=== PATIENT | female | born 1945 | race Caucasian/White ===

== ENCOUNTER → 2019-11-06 16:13 | Outpatient (CLI) | payer MEDICARE, OTHER, SELFPAY ==
[2019-11-06 15:57] VITALS: BMI 21.4
--- NOTE | 2019-11-06 16:18 | RAD_ITS ---
STUDY: X-RAY CHEST REASON FOR EXAM: Female, 74 years old. COUGH, SHORT OF BREATH TECHNIQUE: PA and lateral views of the chest. COMPARISON: None. FINDINGS: Cardiac silhouette unremarkable. Pulmonary vascularity unremarkable. Aorta unremarkable. No focal airspace opacities. No pleural effusions. Upper abdomen unremarkable. Osseous structures intact. No pneumothorax. RAD/Chest PA and Lateral IMPRESSION: No acute cardiopulmonary findings Electronically Signed: Woo Ramachandran, at 17:36 EST Tel , Service support ,
== END ==
PROVIDERS: PCP Family Medicine; Referring Provider Physician Assistant; Visit Provider Physician Assistant
DX: R05 Cough (principal)
CPT/HCPCS: 71046

== ENCOUNTER 2019-11-11 18:19 | Inpatient (IN) | payer MEDICARE, OTHER, SELFPAY ==
[2019-11-06 15:57] VITALS: BMI 21.4
[2019-11-11 18:21] VITALS: BP 146/81; PULSE 83; RESP 15; TEMP 37.1; O2SAT 94; BMI 22.3
--- NOTE | 2019-11-11 18:51 | EKG12_ITS ---
Test Reason : HTN Blood Pressure : / mmHG Vent. Rate : 081 BPM Atrial Rate : 081 BPM P-R Int : 150 ms QRS Dur : 090 ms QT Int : 378 ms P-R-T Axes : 052 053 069 degrees QTc Int : 439 ms Normal sinus rhythm Normal ECG Confirmed by FISH FORBES ([id number]), editorial project manager CHIDI RAY ([id number]) on 11/12/2019 3:00:39 PM Referred By: GRIFFIN Confirmed By:FISH FORBES
--- NOTE | 2019-11-11 19:06 | ED.RN ---
NO OLD EKGS IN MUSE
[2019-11-11] MEDS: 0.9% Normal Saline 1,000 ML 150 ML IV (19:19)
--- NOTE | 2019-11-11 19:25 | RAD_ITS ---
STUDY: X-RAY CHEST REASON FOR EXAM: Female, 74 years old. Hypertension TECHNIQUE: PA and lateral views of the chest. COMPARISON: 11/06/2019. FINDINGS: Cardiac silhouette unremarkable. Pulmonary vascularity unremarkable. Aorta unremarkable. No focal airspace opacities. No pleural effusions. Upper abdomen unremarkable. Osseous structures intact. No pneumothorax. RAD/Chest PA and Lateral IMPRESSION: No acute cardiopulmonary findings Electronically Signed: Woo Ramachandran, at 20:50 EST Tel , Service support ,
[2019-11-11 19:28] LABS: Absolute Lymphocyte Count 1.54 X10^3/uL (0.83-4.51); Absolute Neutrophil Count 9.4 X10^3/uL (2.0-7.7); Basophil# 0.09 X10^3/uL; Basophil% 0.7 % (0-1); Eosinophil# 0.57 X10^3/uL; Eosinophils% 4.5 % (0-5); Hematocrit 35.7 % (37-47); Hemoglobin 11.6 g/dL (12.0-15.0); Lymphocyte # 1.54 X10^3/ul (4.0); Lymphocyte % 12.3 % (19-41); Mean Corp Hgb Conc 32.5 g/dL (32-36); Mean Corpuscular Hgb 30.9 pg (27.0-32.0); Mean Corpuscular Volume 95.2 fL (81-99); Mean Platelet Vol. 9.5 fl (6.2-12.0); Monocyte# 0.84 X10^3/uL; Monocyte% 6.7 % (0-10); NRBC Flagged by Analyzer 0 % (0-5); Neutrophil # 9.43 X10^3/uL (2.7-7.7); Platelet Count 318 K/mm3 (150-450); RBC Distribution Width CV 13.8 % (11.6-14.6); RBC Distribution Width SD 47.1 fl (35.1-43.9); Red Blood Count 3.75 M/mm3 (4.2-5.4); White Blood Count 12.6 K/mm3 (4.4-11.0)
[2019-11-11 19:41] LABS: Anion Gap 8 (5-15); BUN 33 mg/dL (7-18); BUN/Creat Ratio 20.9 RATIO (10-20); Calcium,Total 9.2 mg/dL (8.5-10.1); Chloride 105 mmol/L (98-107); Creatinine, Serum 1.58 mg/dL (0.55-1.02); EST Glomerular Filtration Rate 34 mL/min (>60); Est Glom Filt Rate - Afr Amer 41 mL/min (>60); Estimated Creatinine Clearance 26.23 ml/min; Glucose 131 mg/dL (74-106); Potassium 3.7 mmol/L (3.5-5.1); Sodium Level 142 mmol/L (136-145)
--- NOTE | 2019-11-11 19:44 | ED.DCSUM_ITS ---
- ER Visit Summary Date of Service: 11/11/19 Chief Complaint: Cough History of Present Illness: The patient is a [address] Carmen. She reports that she went to urgent care 5 days ago and was diagnosed with pneumonia by chest x-ray. She was placed on Levaquin for 10 days. She now has been taking this for 5 days reports that she does not feel any better. She is been using an albuterol MDI without relief as well. Patient reports that today her blood pressures been elevated more than it usual ly is. Typically her blood pressure runs in the 140s. Tonight is been up to 171 systolic. Review of systems patient complains subjective fever chills. Mild shortness of breath is been wheezing. States her cough productive green sputum without blood. She denies any other complaints. She did get a flu shot this year. Physical Examination: Vitals: Stable. Afebrile. General: Well-nourished and well-developed. Head: Normocephalic atraumatic. Neck: Supple, no lymphadenopathy. No JVD. Nontender. Cardiovascular: Regular rate and rhythm. No murmurs. Respiratory: No respiratory distress. Clear to auscultation bilaterally. Abdominal: Soft, nontender, nondistended, normal bowel sounds. No guarding, rebound, or peritoneal signs. Back: Nontender. Extremities: Nontender, no edema. Skin: Normal color, no rash. Neurologic: Alert and oriented ?3. Cranial nerves II through XII are intact. Normal strength and sensation. Psych: Normal affect. Test Results: CBC shows a white count of 12.6 with an H&H of 11.6 35.7, segmented for 75, lymphocytes 12. Chem-7 shows a glucose 131, BUN of 33, creatinine 1.58. Influenza is negative. She does not have old labs for comparison. Chest x-ray is read as normal. Clinical Impression(s) from Imaging Studies Chest X-Ray 11/11/19 19:25 IMPRESSION: No acute cardiopulmonary findings Electronically Signed: Woo Ramachandran, at 20:50 EST Tel , Service support , Chest CTA 11/11/19 21:33 IMPRESSION: No visualized pulmonary embolism. Findings are highly suspicious for atypical pneumonia with areas of subtle groundglass opacity with interspersed Smudgy nodular densities scattered throughout the lungs with bilateral lung base multiple smudgy nodular densities. Recommend follow to clearing as pulmonary nodularity can be associated with metastatic disease. In this setting is thought to represent inflammatory change. Probable calcified granuloma in the left apex. There is a focal outpouching with a bubbly food-like appearance to the right of the distal esophagus suspicious for a diverticulum. Recommend consideration for a follow-up esophagram when appropriate. There is associated wall thickening of the esophagus suspicious for esophagitis. There is a well-circumscribed cyst within the liver in the right hepatic lobe with Hounsfield units in the range of simple fluid. Electronically Signed: Sobeida Pena MD at 22:19 EST Tel , Service support , Emergency Department Course and Treatment: The patient was ambulated in the emerge department and her pulse ox dropped to 82%. Because of this a CT of the chest to rule out PE was obtained. This shows diffuse atypical pneumonias. Patient was then written for a lactic acid and blood cultures. She was given Rocephin and Zithromax IV. On 2 L of oxygen her pulse ox is 99% and she is resting comfortably. Treatment Plan: The patient was discussed with . She will be admitted to the hospital for further evaluation and treatment. Disposition: Admitted in stable condition. Impression: 1. Pneumonia, atypical. 2. Hypoxia. This note was generated with [email or web address]ation software. It may contain incorrect words, spelling, and punctuation that were not noted in review of the chart prior to signing ED Disposition - Plan for ED Patient: Disposition: Acute Care Hospital [facility]
--- NOTE | 2019-11-11 20:45 | ED.RN ---
ATTEMPTED TO CALL RADIOLOGY FOR X-RAY RESULTS. NO ONE PICKED UP X 2.
[2019-11-11 21:01] VITALS: BP 129/74; PULSE 81; RESP 17; O2SAT 93
[2019-11-11] MEDS: predniSONE 20 MG Tablet 40 MG PO (21:28)
[2019-11-11 21:30] VITALS: O2SAT 84; O2SAT 94
[2019-11-11 21:31] VITALS: O2SAT 99
--- NOTE | 2019-11-11 21:33 | CT_ITS ---
STUDY: CTA CHEST REASON FOR EXAM: Female, 74 years old. DX WITH PNEUMONIA THIS WEEK, SHORT OF BREATH WITH EXERTION RADIATION DOSAGE (If Supplied By Facility): CTDIvol = ( 4.2 ) mGy, DLP = ( 183.60 ) mGycm TECHNIQUE: The examination was performed with the intravenous administration of IV 100mL Isovue-300. Post-processing of the angiographic images was performed, with multiplanar reformation and 3D reconstruction. Individualized dose optimization techniques were used for this CT. COMPARISON: November 11, 2019 chest x-ray FINDINGS: Normal enhancement of the main pulmonary artery and right and left pulmonary arteries. Normal enhancement of the bilateral peripheral pulmonary arteries. There is no demonstrated pulmonary embolism. There is a ductus diverticulum in the aorta. The aorta is tortuous. There is no demonstrated aortic dissection. The heart is within normal limits in size. Trace pericardial effusion. There is a outpouching of the right side of the distal esophagus with food or fluid that is suggestive of a diverticulum measuring 3.4 x 2.3 cm. Proximal and distal esophagus is mildly thickened. Normal hilar regions. Normal visualized trachea and bronchi. There is a small possible pulmonary varix or vascular distention in the right lower lobe. This may be associated with a small nodule and/or potentially vascular distention that measures 3.7 cm. Overall the lungs appear hyperinflated. There is a partially calcified nodule in the left apex measuring 4.3 mm. There are subtle areas of minimal groundglass opacity. There is mild peribronchial thickening. Within both lung bases there are patchy nodular inflammatory appearing densities. There is a nodular density in the right upper lobe measuring 7.3 mm. There is a right lung base nodule measuring 7.9 x 8.6 mm. Normal pulmonary parenchyma. Normal pleura. Normal chest wall structures. There is kyphosis. There is multilevel degenerative change. There is a low attenuating cystic structure in the right hepatic lobe measuring 3.0 x 1.9 cm with Hounsfield units in the range of simple fluid. There is minimal right pelviectasis partially visualized. CT/CTA Chest W/WO Contrast IMPRESSION: No visualized pulmonary embolism. Findings are highly suspicious for atypical pneumonia with areas of subtle groundglass opacity with interspersed Smudgy nodular densities scattered throughout the lungs with bilateral lung base multiple smudgy nodular densities. Recommend follow to clearing as pulmonary nodularity can be associated with metastatic disease. In this setting is thought to represent inflammatory change. Probable calcified granuloma in the left apex. There is a focal outpouching with a bubbly food-like appearance to the right of the distal esophagus suspicious for a diverticulum. Recommend consideration for a follow-up esophagram when appropriate. There is associated wall thickening of the esophagus suspicious for esophagitis. There is a well-circumscribed cyst within the liver in the right hepatic lobe with Hounsfield units in the range of simple fluid. Electronically Signed: Sobeida Pena MD at 22:19 EST Tel , Service support ,
[2019-11-11] MEDS: 0.9% Normal Saline 1,000 ML 999 ML IV (22:11)
--- NOTE | 2019-11-11 22:43 | HP.PCM_ITS ---
History of Present Illness Date of Admission: 11/11/19 Chief Complaint: shortness of breath The patient is a 74 year old F with past medical history as outlined who was admitted through the ED on 11/11/2019 with a complaint of shortness of breath. Patient had been seen at that in our clinic about a week prior to admission when she presented there with shortness of breath and was diagnosed with pneumonia. She was treated on outpatient basis with Levaquin which completed a 5-day course of. However shortness of breath persisted and worsened today with associated fever and chills and a cough which was productive of greenish sputum. She denied any nausea vomiting or chest pain palpitations or dizziness, orthopnea or PND. She therefore decided to come into the ED today. Vitals in the ED only significant for blood pressure of 160/85. She had a temperature of 98.9 Fahrenheit with pulse rate of 88 and respiratory rate of 16. On room air, she was saturating in the 80s and needed 2 L to go up to 99%. Chemistry showed creatinine of 1.58. Initial troponin was negative. CBC showed WBC of 12.6 with hemoglobin of 11.6. Checks x-ray showed no acute cardiopulmonary findings, but CT of the chest showed findings highly suspicious for atypical pneumonia with areas of subtle groundglass opacity with interspersed smudgy nodular densities scattered throughout the lungs with bilateral lung base multiple smudgy nodular densities. She has been admitted to be managed for acute hypoxic respiratory insufficiency due to community-acquired pneumonia for which she failed outpatient therapy. [] Past Medical History Medical History: Medical History (Last Updated 11/06/19 @ 16:04 by Kena Wong) Arthritis M19.90 Diabetes E11.9 History of kidney stones Z87.442 Hypertension I10 Allergies diltiazem [From Cardizem] Allergy (Mild, Verified 11/11/19 18:20) HIVES minoxidil Allergy (Mild, Verified 11/11/19 18:20) TACHYCARDIA prazosin [From Minipress] Adverse Reaction (Verified 11/11/19 18:41) Other PALPITATIONS Home Medications: Ambulatory Orders Medication Instructions Recorded albuterol sulfate 90 mcg/actuation 2 puff INHALATION 6XD PRN #8 g 11/06/19 aerosol inhaler allopurinol 300 mg tablet 300 mg PO DAILY 11/06/19 aspirin 81 mg chewable tablet 81 mg PO DAILY 11/06/19 atorvastatin 10 mg tablet 10 mg PO DAILY 11/06/19 clonidine HCl 0.2 mg tablet 0.2 mg PO BID tab 11/06/19 indapamide 2.5 mg tablet 2.5 mg PO DAILY 11/06/19 levofloxacin 500 mg tablet 500 mg PO DAILY #10 tab 11/06/19 metformin 500 mg tablet 500 mg PO BID 11/06/19 polyethylene glycol 3350 17 17 g PO DAILY 11/06/19 gram/dose oral powder valsartan 320 mg tablet 320 mg PO DAILY 11/06/19 Metoprolol Tartrate [Lopressor] 100 mg PO BID 11/11/19 Surgical History: no surgical history Psychiatric History: No pertinent psych hx CONTACT CENTER AGENT History: No pertinent CONTACT CENTER AGENT history Lives: Spouse/ Significant Other Smoking Status: Never smoker Alcohol: None Drugs: None - *Family History Maternal History Items: No pertinent history Review of Systems Constitutional: Reports: Chills, Fever, Night Sweats, Malaise, Weakness, Fatigue. Denies: Anorexia Eyes: Denies: Blurred vision HEENT: Denies: Head Aches, Sinus Congestion, Sinus Drainage Cardiovascular: Denies: Chest Pain, Chest Pressure, Heaviness, Light Headedness, Orthopnea, Palpitations, Paroxysmal Noc. Dyspnea Respiratory: Reports: Cough, Shortness of Breath, Shortness of breath at rest, Shortness of breath upon exertion, Sputum production. Denies: Wheezing Gastrointestinal: Denies: Abdominal Pain, Nausea, Vomiting Genitourinary: Denies: Dysuria Musculoskeletal: Denies: Joint Pain, Joint Tenderness Skin: Denies: Rash, Wounds Neurological: Denies: Numbness, Tingling, Focal weakness Psychiatric: Denies: Anxiety, Depression, Homicidal Ideations, Suicidal Ideations Hematologic/ Lymphatic: Denies: Easy Bruising, Easy Bleeding VTE Information - Inpt Only VTE Present on Admission: No VTE Pharm Prophylaxis ordered?: Yes - Physical Exam Vitals/I&O's: Vital Signs Temp Pulse Resp BP Pulse Ox 98.7 F 81 17 129/74 H 99 11/11/19 18:21 11/11/19 21:01 11/11/19 21:01 11/11/19 21:01 11/11/19 21:31 Oxygen Flow Rate (L/min) 2 Oxygen Delivery Method Nasal Cannula Weight: 126 lb 1.671 oz Body Mass Index (BMI) 22.3 Intake and Output for Last 24 Hours 11/09/19 11/10/19 11/11/19 23:59 23:59 23:59 Intake Total 340 / 340 Balance 340 / 340 General: Alert, Oriented x3, Cooperative, No apparent distress HEENT: Atraumatic, PERRLA, EOMI, Normocephalic Oral: Moist Mucosa Neck: Supple, No JVD, Negative Carotid Bruits Lungs: - - decreased breath sounds bibasally, with occasional coarse crackles bibasally. on 2L of oxygen. Cardiovascular: Regular rate, Regular Rhythm, Normal S1, Normal S2, No murmurs Abdomen: Bowel Sounds Present, Soft, Non Tender, Non-Distended, No Hepato- splenomegaly Extremities: No clubbing, No cyanosis, No edema, Capillary Refill Less than 3 Seconds Skin: No rashes, No breakdown Musculoskeletal: No Tenderness to Palpation of Joints or Extremities Lymphatic: No Cervical, Supraclavicular, or Inguinal Adenopathy Neurological: Cranial nerves II-XII grossly intact, Neuro grossly intact, Motor Exam 5/5 strength throughout Psych/Mental Status: Normal Affect, Appropriate, Alert and oriented to time, place, person, mood and affect Microbiology Past 72 Hours 11/11/19 19:20 Mucosa - Nasopharyngeal Influenza Types A,B Direct FA (PEDRO) - Final Laboratory Results 11/11/19 19:15: WBC 12.6 H, RBC 3.75 L, Hgb 11.6 L, Hct 35.7 L, MCV 95.2, MCH 30.9, MCHC 32.5, RDW Std Deviation 47.1 H, RDW Coeff of Shameka 13.8, Plt Count 318, MPV 9.5, Immature Gran % (Auto) 0.800, Neut % (Auto) 75.0 H, Lymph % (Auto) 12.3 L, [place] % (Auto) 6.7, Eos % (Auto) 4.5, Baso % (Auto) 0.7, Absolute Neuts (auto) 9.4 H, Absolute Lymphs (auto) 1.54, Nucleated RBC % 0 11/11/19 19:15: Sodium 142, Potassium 3.7, Chloride 105, Carbon Dioxide 29.0, Anion Gap 8, BUN 33 H, Creatinine 1.58 H, Estim Creat Clear Calc 26.23, Est GFR (MDRD) Af Amer 41 L, Est GFR (MDRD) Non-Af 34 L, BUN/Creatinine Ratio 20.9 H, Glucose 131 H, Calcium 9.2 11/11/19 19:15: Troponin I Pending Diagnostic Data Chest X-Ray 11/11/19 19:25 IMPRESSION: No acute cardiopulmonary findings Electronically Signed: Woo Ramachandran, at 20:50 EST Tel , Service support , Chest CTA 11/11/19 21:33 IMPRESSION: No visualized pulmonary embolism. Findings are highly suspicious for atypical pneumonia with areas of subtle groundglass opacity with interspersed Smudgy nodular densities scattered throughout the lungs with bilateral lung base multiple smudgy nodular densities. Recommend follow to clearing as pulmonary nodularity can be associated with metastatic disease. In this setting is thought to represent inflammatory change. Probable calcified granuloma in the left apex. There is a focal outpouching with a bubbly food-like appearance to the right of the distal esophagus suspicious for a diverticulum. Recommend consideration for a follow-up esophagram when appropriate. There is associated wall thickening of the esophagus suspicious for esophagitis. There is a well-circumscribed cyst within the liver in the right hepatic lobe with Hounsfield units in the range of simple fluid. Electronically Signed: Sobeida Pena MD at 22:19 EST Tel , Service support , Current Medications Sodium Chloride () 1,000 mls @ 150 mls/hr IV .[id number] ONE Stop: 11/12/19 01:29 Last Infusion: 11/11/19 21:35 Dose: 0 mls/hr Documented by: Azithromycin 500 mg/ Dextrose 255 mls @ 250 mls/hr IV X1 ONE Stop: 11/11/19 23:24 Ceftriaxone Sodium (Rocephin) 1 gm in 50 mls @ 100 mls/hr IV X1 ONE Stop: 11/11/19 22:52 Assessment/Plan All Active Problems (Last Updated 11/06/19 @ 16:04 by Kena Wong) Bronchitis (Acute) 74 y/o female admitted with a complaint of shortness of breath, fever, chills and cough 1. Acute hypoxic respiratory insufficiency due to community acquired pneumonia * Failed outpatient therapy. Was saturating in the 80s on room air and required 2 L of oxygen to go up to 99%. * Chest x-ray showed no acute cardiopulmonary process but CTA did show findings suspicious for atypical pneumonia with areas of subtle groundglass opacities with interspersed large nodular densities scattered throughout the lungs with bilateral lung base multiple small general densities. * Admit to PCU with telemetry * WBC is 12.6 and lactic acid was initially negative. * Was treated with 5 days of Levaquin unsuccessfully * Start IV ceftriaxone and IV azithromycin. * Check respiratory panel and urine for strep and Legionella. Check blood cultures as well as sputum cultures. * Titrate oxygen to maintain saturation above 90% * Breathing treatments with DuoNeb's. * 2. Community acquired pneumonia: * Failed outpatient therapy. * Management as under 1. * 3. SKYLA: * Cr is 1.58. baseline is not known. * will hydrate gently with IVF and trend Cr * 4. Type 2 diabetes mellitus: * Recently diagnosed in August 2019. * On metformin 500 mg twice daily. Will hold metformin o/a of Cr of 1.58 * Insulin sliding scale. Accu-Cheks AC at bedtime. 5. Hypertension: Fairly controlled for age. On clonidine, indapamide and metoprolol. Also on valsartan. IV hydralazine PRN. 6. History of gout: On allopurinol DVT prophylaxis: Lovenox Code Visit Inpatient E&M: [id number] Init Hosp L3
[2019-11-11 23:08] VITALS: BP 162/85; PULSE 88; RESP 16; O2SAT 99
[2019-11-11] MEDS: Ceftriaxone 1 GM/50 ML BAG IV (23:17)
[2019-11-11] MEDS: MethylPREDNISolone 125 MG/2 ML Vial IV (23:17)
[2019-11-11 23:25] VITALS: TEMP 37.2
[2019-11-11 23:59] LABS: Lactic Acid 1.1 mmol/L (0.4-1.9)
[2019-11-12] VITALS (17 sets, daily range): BP systolic 120–162; BP diastolic 66–79; PULSE 72–85; RESP 16–18; TEMP 36.6–36.7; O2SAT 90–99; BMI 22.3; BMI 22.6
[2019-11-12 00:41] LABS: Bedside Glucose 204 mg/dL (70-110)
[2019-11-12] MEDS: 0.9% Normal Saline 1,000 ML 150 ML IV ×2 (01:50→08:30)
[2019-11-12 03:17] LABS: Absolute Lymphocyte Count 0.89 X10^3/uL (0.83-4.51); Absolute Neutrophil Count 9.6 X10^3/uL (2.0-7.7); Basophil# 0.06 X10^3/uL; Basophil% 0.6 % (0-1); Eosinophil# 0.05 X10^3/uL; Eosinophils% 0.5 % (0-5); Hematocrit 32.3 % (37-47); Hemoglobin 10.5 g/dL (12.0-15.0); Lymphocyte # 0.89 X10^3/ul (4.0); Lymphocyte % 8.2 % (19-41); Mean Corp Hgb Conc 32.5 g/dL (32-36); Mean Corpuscular Hgb 30.7 pg (27.0-32.0); Mean Corpuscular Volume 94.4 fL (81-99); Mean Platelet Vol. 9.6 fl (6.2-12.0); Monocyte# 0.07 X10^3/uL; Monocyte% 0.6 % (0-10); NRBC Flagged by Analyzer 0 % (0-5); Neutrophil # 9.64 X10^3/uL (2.7-7.7); Neutrophil % 89.2 % (47-70); Platelet Count 280 K/mm3 (150-450); RBC Distribution Width CV 13.7 % (11.6-14.6); RBC Distribution Width SD 46.1 fl (35.1-43.9); Red Blood Count 3.42 M/mm3 (4.2-5.4); White Blood Count 10.8 K/mm3 (4.4-11.0)
[2019-11-12 03:57] LABS: Anion Gap 7 (5-15); BUN 29 mg/dL (7-18); BUN/Creat Ratio 22.3 RATIO (10-20); Calcium,Total 7.9 mg/dL (8.5-10.1); Chloride 106 mmol/L (98-107); EST Glomerular Filtration Rate 43 mL/min (>60); Est Glom Filt Rate - Afr Amer 52 mL/min (>60); Estimated Creatinine Clearance 31.88 ml/min; Glucose 198 mg/dL (74-106); Potassium 3.8 mmol/L (3.5-5.1); Sodium Level 140 mmol/L (136-145)
[2019-11-12 06:35] LABS: Bedside Glucose 175 mg/dL (70-110)
--- NOTE | 2019-11-12 07:46 | PCM.PN.HOSP ---
Reason for Visit: Patient does not have history of smoking, chronic lung disease or heart disease. She is admitted with shortness of breath and mild cough. She had 5 days of outpatient Levaquin for pneumonia but did not improve. Objective: Hemodynamically stable. No tachycardia or fever Vitals/I&O's: Vital Signs Temp Pulse Resp BP Pulse Ox 97.9 F 72 18 131/66 H 96 11/12/19 05:52 11/12/19 05:52 11/12/19 05:52 11/12/19 05:52 11/12/19 05:52 Oxygen Flow Rate (L/min) 1 Oxygen Delivery Method Nasal Cannula Weight: 127 lb 10.362 oz Body Mass Index (BMI) 22.6 Intake and Output for Last 24 Hours 11/10/19 11/11/19 11/12/19 23:59 23:59 23:59 Intake Total 1340 / 1340 450 / 450 Balance 1340 / 1340 450 / 450 General: Alert, Oriented x3, Cooperative HEENT: Atraumatic, PERRLA, EOMI, Normocephalic Neck: Supple, No JVD, Negative Carotid Bruits Lungs: Clear to auscultation, No rhonchi, No wheeze, No rales, Diminished Cardiovascular: Regular rate, Regular Rhythm, Normal S1, Normal S2, No murmurs Abdomen: Bowel Sounds Present, Soft, Non Tender, Non-Distended Extremities: No edema, Capillary Refill Less than 3 Seconds Skin: No rashes, No breakdown Musculoskeletal: No Tenderness to Palpation of Joints or Extremities, Arthritic Changes Neurological: Cranial nerves II-XII grossly intact, Deep Tendon Reflexes 2+/4 and Symmetrical, Neuro grossly intact, Motor Exam 5/5 strength throughout Psych/Mental Status: Normal Affect, Appropriate Microbiology Past 72 Hours 11/12/19 03:30 Urine, Clean Catch Streptococcus pneumoniae Antigen (M - Final 11/12/19 03:30 Urine, Clean Catch Legionella Antigen - Final 11/11/19 19:20 Mucosa - Nasopharyngeal Influenza Types A,B Direct FA (PEDRO) - Final Laboratory Results 11/11/19 19:15: WBC 12.6 H, RBC 3.75 L, Hgb 11.6 L, Hct 35.7 L, MCV 95.2, MCH 30.9, MCHC 32.5, RDW Std Deviation 47.1 H, RDW Coeff of Shameka 13.8, Plt Count 318, MPV 9.5, Immature Gran % (Auto) 0.800, Neut % (Auto) 75.0 H, Lymph % (Auto) 12.3 L, Maries % (Auto) 6.7, Eos % (Auto) 4.5, Baso % (Auto) 0.7, Absolute Neuts (auto) 9.4 H, Absolute Lymphs (auto) 1.54, Nucleated RBC % 0 11/11/19 19:15: Sodium 142, Potassium 3.7, Chloride 105, Carbon Dioxide 29.0, Anion Gap 8, BUN 33 H, Creatinine 1.58 H, Estim Creat Clear Calc 26.23, Est GFR (MDRD) Af Amer 41 L, Est GFR (MDRD) Non-Af 34 L, BUN/Creatinine Ratio 20.9 H, Glucose 131 H, Calcium 9.2 11/11/19 19:15: Troponin I < 0.015 11/11/19 22:23: Lactic Acid 1.1 11/12/19 00:23: Troponin I < 0.015 11/12/19 00:32: POC Glucose 204 H 11/12/19 03:05: WBC 10.8, RBC 3.42 L, Hgb 10.5 L, Hct 32.3 L, MCV 94.4, MCH 30.7, MCHC 32.5, RDW Std Deviation 46.1 H, RDW Coeff of Shameka 13.7, Plt Count 280, MPV 9.6, Immature Gran % (Auto) 0.900, Neut % (Auto) 89.2 H, Lymph % (Auto) 8.2 L, Maries % (Auto) 0.6, Eos % (Auto) 0.5, Baso % (Auto) 0.6, Absolute Neuts (auto) 9.6 H, Absolute Lymphs (auto) 0.89, Nucleated RBC % 0 11/12/19 03:05: Sodium 140, Potassium 3.8, Chloride 106, Carbon Dioxide 27.0, Anion Gap 7, BUN 29 H, Creatinine 1.30 H, Estim Creat Clear Calc 31.88, Est GFR (MDRD) Af Amer 52 L, Est GFR (MDRD) Non-Af 43 L, BUN/Creatinine Ratio 22.3 H, Glucose 198 H, Calcium 7.9 L 11/12/19 03:05: Troponin I < 0.015 11/12/19 05:54: Troponin I < 0.015 11/12/19 06:31: POC Glucose 175 H Current Medications Acetaminophen (Tylenol) 650 mg PO Q6H PRN PRN PRN Reason: Pain Score 1-10/Temp > 100.7 F Albuterol Sulfate (Ventolin Aerosols) 2.5 mg INHALATION Q4H PRN PRN PRN Reason: shortness of breath/wheezing [facility] Aspirin (Aspirin, Baby) [facility] Atorvastatin Calcium (Lipitor) 10 mg PO DAILY@2200 [facility] Clonidine (Catapres) 0.2 mg PO BID [facility] Enoxaparin Sodium (Lovenox) 30 mg SC DAILY [facility] Glucagon () 1 mg IM .X1 PRN PRN Reason: Hypoglycemia Guaifenesin (Mucinex) 1,200 mg PO BID [facility] Azithromycin 500 mg/ Dextrose 255 mls @ 250 mls/hr IV Q24@2200 [facility] Ceftriaxone Sodium 2 gm/ (Sodium Chloride) 50 mls @ 100 mls/hr IV Q24@2200 [facility] Dextrose (Dextrose 10%-Water) 250 mls @ 999 mls/hr IV .Q16M PRN; Protocol PRN Reason: HYPOGLYCEMIA Sodium Chloride () 250 mls @ 15 mls/hr IV .[id number] PRN PRN Reason: Saline Flush Sodium Chloride () 250 mls @ 15 mls/hr IV .[id number] PRN PRN Reason: Additional IVPB Infusion Sodium Chloride () 1,000 mls @ 150 mls/hr IV .[id number] [facility] Stop: 11/12/19 14:59 Last Admin: 11/12/19 01:50 Dose: 150 mls/hr Documented by: Indapamide (Lozol) 2.5 mg PO DAILY [facility] Insulin Human Lispro (Humalog Kwikpen (Bkc)) 0 unit SC ACHS [facility]; Protocol Last Admin: 11/12/19 06:34 Dose: Not Given Documented by: Losartan Potassium (Cozaar) 50 mg PO DAILY [facility] Metformin HCl (Glucophage) [facility] Metoprolol Tartrate (Lopressor (Beta Marlys)) 100 mg PO BID [facility] Nitroglycerin (Nitrostat) 0.4 mg SUBLINGUAL Q5M PRN PRN Reason: CARDIAC/CHEST PAIN Ondansetron HCl (Zofran) 4 mg IV Q8H PRN PRN PRN Reason: NAUSEA/VOMITING Polyethylene Glycol (Miralax) 17 gm PO DAILY [facility] Sodium Chloride () 10 - 40 ml IV UD PRN PRN Reason: SALINE FLUSH STROKE Vital Signs/Narrative: Vital Signs Temp Pulse Resp BP Pulse Ox 11/12/19 05:52 97.9 F 72 18 131/66 H 96 Medical Necessity - Tobacco Use Smoking Status: Never smoker Assessment/Plan All Active Problems (Last Updated 11/06/19 @ 16:04 by Kena Wong) Bronchitis (Acute) 74 y/o female admitted with a complaint of shortness of breath, fever, chills and cough and CT chest finding showing atypical pneumonia, mainly interstitial in bilateral lung bases. 1. Acute hypoxic respiratory insufficiency, hypoxia due to SIRS (hypoxia and leukocytosis ) due to community acquired pneumonia, failed outpatient therapy: Currently on IV Rocephin and Zithromax. Lactic acid normal. CTA did show findings suspicious for atypical pneumonia with areas of subtle groundglass opacities with interspersed large nodular densities scattered throughout the lungs with bilateral lung base multiple small general densities. Urinary antigens are negative. Respiratory panel negative. Blood cultures x2 are pending. On DuoNeb as needed. Patient will need repeat CT chest after pneumonia has resolved as the findings raised suspicion of metastatic disease although she does not have a history of cancer or family history of cancer. 2. Community acquired pneumonia: 3. SKYLA: Admitting creatinine 1.58, BUN 33. Improved to 29/1.3. On IV fluid normal saline, prerenal in etiology. 4. Type 2 diabetes mellitus: Currently Metformin on hold, resume from tomorrow. Accu-Cheks and cover with Hem-o-slade sliding scale. 5. Hypertension: Fairly controlled for age. On clonidine, indapamide and metoprolol. Also on valsartan. IV hydralazine PRN. 6. History of gout: On allopurinol DVT prophylaxis: Lovenox Total time of the visit including total time spent in counseling or coordination of care, (more than 50% of the total time, spent in obtaining medical information from nurses and other ancillary care providers), discussion with patient and nursing staff, review of labs and imaging is 30 minutes Clinical Impression(s) from Imaging Studies Chest X-Ray 11/11/19 19:25 IMPRESSION: No acute cardiopulmonary findings Electronically Signed: Woo Ramachandran, at 20:50 EST Tel , Service support , Chest CTA 11/11/19 21:33 IMPRESSION: No visualized pulmonary embolism. Findings are highly suspicious for atypical pneumonia with areas of subtle groundglass opacity with interspersed Smudgy nodular densities scattered throughout the lungs with bilateral lung base multiple smudgy nodular densities. Recommend follow to clearing as pulmonary nodularity can be associated with metastatic disease. In this setting is thought to represent inflammatory change. Probable calcified granuloma in the left apex. There is a focal outpouching with a bubbly food-like appearance to the right of the distal esophagus suspicious for a diverticulum. Recommend consideration for a follow-up esophagram when appropriate. There is associated wall thickening of the esophagus suspicious for esophagitis. There is a well-circumscribed cyst within the liver in the right hepatic lobe with Hounsfield units in the range of simple fluid. Code Visit Inpatient E&M: 39738 Subs Hosp L3
[2019-11-12] MEDS: Aspirin 81 MG TAB.CHEW PO (08:30)
[2019-11-12] MEDS: Allopurinol 300 MG Tablet PO (08:30)
[2019-11-12] MEDS: guaiFENesin 1,200 MG Tablet 1200 MG PO ×2 (08:33→22:28)
[2019-11-12] MEDS: cloNIDine HCl 0.2 MG Tablet PO ×2 (08:33→22:27)
[2019-11-12] MEDS: Indapamide 2.5 MG Tablet PO (09:59)
[2019-11-12] MEDS: Metoprolol Tartrate 100 MG Tablet PO ×2 (09:59→22:29)
[2019-11-12] MEDS: Enoxaparin 30 MG/0.3 ML Syringe SC (09:59)
--- NOTE | 2019-11-12 10:10 | CASEMGMT ---
RN CM Face to Face with patient for initial transition planning/care coordination assessment. RN CM introduced self and role at [facility]. Patient sitting in chair, alert and oriented, at bedside. Patient willing to participate in assessment and is able to answer all questions appropriately. Care providers, pharmacy, and demographics verified. Patient wishes to discharge home, denies need for home health at this time. Patient states she has no further needs or concerns at this time. CM to follow for discharge planning needs that may arise. PCP: Clif Specialists: Brad urologshira Preferred Pharmacy: [facility] Insurance: [facility] Prescription Benefit: yes Living Will/HPOA: yes, Toy De Paz LNOK: , daughter Living Arrangements: Patient lives with in 1 story home with 4 steps and railing to enter the home. Patient independent at home prior to hospitalization. Transportation: self/ DME/HHC: Patient denies need for DME. Patient denies previous HHC Disposition Plan: Patient to discharge home with family support and follow-up plans in place. Sarai WONG, RN, CM
[2019-11-12] MEDS: Insulin Lispro 100 UNIT/ML INSULN.PEN SC ×3 (12:22→22:27)
[2019-11-12 14:00] LABS: Bedside Glucose 228 mg/dL (70-110)
[2019-11-12 14:00] LABS: Bedside Glucose 208 mg/dL (70-110)
[2019-11-12 16:51] LABS: Bedside Glucose 181 mg/dL (70-110)
[2019-11-12] MEDS: Atorvastatin Calcium 10 MG Tablet PO (22:27)
[2019-11-12] MEDS: 0.9% Saline Lock 10 ML Syringe IV (22:27)
[2019-11-12 22:46] LABS: Bedside Glucose 211 mg/dL (70-110)
[2019-11-13] VITALS (16 sets, daily range): BP systolic 136–154; BP diastolic 67–79; PULSE 65–90; RESP 16–20; TEMP 36.5–36.7; O2SAT 87–98
[2019-11-13] MEDS: 0.9% Saline Lock 10 ML Syringe IV ×2 (00:16→22:00)
[2019-11-13 06:40] LABS: Bedside Glucose 139 mg/dL (70-110)
[2019-11-13] MEDS: Aspirin 81 MG TAB.CHEW PO (08:11)
[2019-11-13] MEDS: Allopurinol 300 MG Tablet PO (08:12)
[2019-11-13] MEDS: cloNIDine HCl 0.2 MG Tablet PO ×2 (08:13→23:15)
[2019-11-13] MEDS: Metoprolol Tartrate 100 MG Tablet PO ×2 (08:14→23:14)
[2019-11-13] MEDS: Losartan Potassium 50 MG Tablet PO (08:14)
[2019-11-13] MEDS: Indapamide 2.5 MG Tablet PO (08:15)
[2019-11-13] MEDS: guaiFENesin 1,200 MG Tablet 1200 MG PO ×2 (08:16→23:13)
--- NOTE | 2019-11-13 09:30 | PCM.DC ---
You will use the following diet at home:: Calorie/Carbohydrate Controlled (specify 1200, 1400, etc), Cardiac Discharge Activity: Return to Normal Activity, May Not Drive - For 3 days or until sees PCP Weight Bearing Status: Weight bearing as tolerated Additional Activity Instructions:: Do not take metformin and valsartan for [address] chest with IV contrast. Call your doctor if you observe: Fever of 101 or Higher, Coldness, Increased Pain, Numbness or Tingling, Change in Color, Inability to urinate, Inability to have a bowel movement, Shortness of breath, Dizziness, Fainting spells, Swelling in the ankles, Chest pain, Prolonged hiccoughing, Increased palpitations (irregular heartbeat), Calf discomfort, Uncontrolled pain Allergies/Adverse Reactions: Allergies diltiazem [From Cardizem] Allergy (Mild, Verified 11/11/19 18:20) HIVES minoxidil Allergy (Mild, Verified 11/11/19 18:20) TACHYCARDIA prazosin [From Minipress] Adverse Reaction (Verified 11/11/19 18:41) Other PALPITATIONS Medications to take at Discharge albuterol sulfate 90 mcg/actuation aerosol inhaler 2 puff INHALATION 6XD PRN #8 g 11/06/19 allopurinol 300 mg tablet 300 mg PO DAILY 11/06/19 aspirin 81 mg chewable tablet 81 mg PO DAILY 11/06/19 atorvastatin 10 mg tablet 10 mg PO DAILY 11/06/19 clonidine HCl 0.2 mg tablet 0.2 mg PO BID tab 11/06/19 indapamide 2.5 mg tablet 2.5 mg PO DAILY 11/06/19 polyethylene glycol 3350 17 gram/dose oral powder 17 g PO DAILY 11/06/19 Metoprolol Tartrate [Lopressor] 100 mg PO BID 11/11/19 Cefdinir [Omnicef [equiv]] 300 mg PO Q12H #10 cap 11/13/19 Guaifenesin [Mucinex] 1,200 mg PO BID #14 tab 11/13/19 Metformin HCl [Glucophage] 500 mg PO BID #0 11/13/19 Valsartan 160 mg PO DAILY #0 11/13/19 The following prescriptions were given: Guaifenesin [Mucinex] 1,200 mg PO BID #14 tab Transmission Status: Pending to [facility]/pharmacy #[id number] Cefdinir [Omnicef [equiv]] 300 mg PO Q12H #10 cap Transmission Status: Pending to [facility] #[id number] Primary Care Physician: Edgar Menezes [Primary Care Provider] - Please follow up with your Primary Care Physician in: In 1 to 2 weeks Test Results: Test results from this visit will be discussed in further detail at your follow-up appointment, if applicable. Please Follow Up With: Shaquille Daily, When: In 3 to [address] chest. B/L LL Pneumonia
[2019-11-13 09:38] LABS: Absolute Lymphocyte Count 1.88 X10^3/uL (0.83-4.51); Absolute Neutrophil Count 14.2 X10^3/uL (2.0-7.7); Basophil# 0.05 X10^3/uL; Basophil% 0.3 % (0-1); Eosinophil# 0.05 X10^3/uL; Eosinophils% 0.3 % (0-5); Hematocrit 32.7 % (37-47); Hemoglobin 10.6 g/dL (12.0-15.0); Lymphocyte # 1.88 X10^3/ul (4.0); Lymphocyte % 10.8 % (19-41); Mean Corp Hgb Conc 32.4 g/dL (32-36); Mean Corpuscular Hgb 30.7 pg (27.0-32.0); Mean Corpuscular Volume 94.8 fL (81-99); Mean Platelet Vol. 9.6 fl (6.2-12.0); Monocyte% 5.8 % (0-10); NRBC Flagged by Analyzer 0 % (0-5); Neutrophil # 14.21 X10^3/uL (2.7-7.7); Neutrophil % 81.9 % (47-70); Platelet Count 313 K/mm3 (150-450); RBC Distribution Width CV 14.2 % (11.6-14.6); Red Blood Count 3.45 M/mm3 (4.2-5.4); White Blood Count 17.3 K/mm3 (4.4-11.0)
[2019-11-13] MEDS: Enoxaparin 30 MG/0.3 ML Syringe SC (09:48)
[2019-11-13 10:11] LABS: Anion Gap 6 (5-15); BUN 25 mg/dL (7-18); BUN/Creat Ratio 21.4 RATIO (10-20); Calcium,Total 8.2 mg/dL (8.5-10.1); Chloride 110 mmol/L (98-107); Creatinine, Serum 1.17 mg/dL (0.55-1.02); EST Glomerular Filtration Rate 48 mL/min (>60); Est Glom Filt Rate - Afr Amer 58 mL/min (>60); Estimated Creatinine Clearance 35.42 ml/min; Glucose 168 mg/dL (74-106); Potassium 3.5 mmol/L (3.5-5.1); Sodium Level 143 mmol/L (136-145)
[2019-11-13] MEDS: Albuterol 2.5 MG/3 ML VIAL.NEB. INHALATION ×2 (10:39→19:46)
--- NOTE | 2019-11-13 11:06 | NURSING ---
LATE ENTRY - DC ORDER FROM DR LUIS. AMBULATED PT ON RA - SATS DROP TO 87%. MADE AWARE, HOLD DC @ THIS TIME. WILL ATTEMPT TO AMBULATE MORE, HAVE PT USE I.S./FLUTTER VALVE, AEROSOLS & POSSIBLY HOME LATER.
[2019-11-13 11:46] LABS: Bedside Glucose 155 mg/dL (70-110)
[2019-11-13] MEDS: Insulin Lispro 100 UNIT/ML INSULN.PEN SC ×2 (12:38→23:19)
--- NOTE | 2019-11-13 14:41 | PN_ITS ---
Reason for Visit: Pneumonia. Mild hypoxia on ambulation Vitals/I&O's: Vital Signs Temp Pulse Resp BP Pulse Ox 98.1 F 76 18 136/67 H 92 11/13/19 07:59 11/13/19 10:00 11/13/19 08:44 11/13/19 08:14 11/13/19 09:42 Oxygen Flow Rate (L/min) [ 2 AMBULATION with Oxygen] Oxygen Flow Rate (L/min) 0.5 Oxygen Delivery Method Nasal Cannula Weight: 127 lb 10.362 oz Body Mass Index (BMI) 22.6 Intake and Output for Last 24 Hours 11/11/19 11/12/19 11/13/19 23:59 23:59 23:59 Intake Total 1340 / 1340 3630 / 4170 1655 / 1655 Output Total 875 / 875 400 / 400 Balance 1340 / 1340 2755 / 3295 1255 / 1255 General: Alert, Oriented x3, Cooperative HEENT: Atraumatic, PERRLA, EOMI, Normocephalic Neck: Supple, No JVD, Negative Carotid Bruits Lungs: Clear to auscultation, No rhonchi, No wheeze, No rales, Diminished Cardiovascular: Regular rate, Regular Rhythm, Normal S1, Normal S2, No murmurs Abdomen: Bowel Sounds Present, Soft, Non Tender, Non-Distended Extremities: No edema, Capillary Refill Less than 3 Seconds Skin: No rashes, No breakdown Musculoskeletal: No Tenderness to Palpation of Joints or Extremities Neurological: Cranial nerves II-XII grossly intact Psych/Mental Status: Normal Affect, Appropriate Microbiology Past 72 Hours 11/11/19 19:24 Mucosa - Nasopharyngeal Respiratory Panel (PCR) - Final 11/12/19 03:30 Urine, Clean Catch Streptococcus pneumoniae Antigen (M - Final 11/12/19 03:30 Urine, Clean Catch Legionella Antigen - Final 11/11/19 19:20 Mucosa - Nasopharyngeal Influenza Types A,B Direct FA ([facility]) - Final Laboratory Results 11/12/19 16:44: POC Glucose 181 H 11/12/19 22:12: POC Glucose 211 H 11/13/19 06:33: POC Glucose 139 H 11/13/19 09:20: WBC 17.3 H, RBC 3.45 L, Hgb 10.6 L, Hct 32.7 L, MCV 94.8, MCH 30.7, MCHC 32.4, RDW Std Deviation 48.0 H, RDW Coeff of Shameka 14.2, Plt Count 313, MPV 9.6, Immature Gran % (Auto) 0.900, Neut % (Auto) 81.9 H, Lymph % (Auto) 10.8 L, Nolan % (Auto) 5.8, Eos % (Auto) 0.3, Baso % (Auto) 0.3, Absolute Neuts (auto) 14.2 H, Absolute Lymphs (auto) 1.88, Nucleated RBC % 0 11/13/19 09:20: Sodium 143, Potassium 3.5, Chloride 110 H, Carbon Dioxide 27.0, Anion Gap 6, BUN 25 H, Creatinine 1.17 H, Estim Creat Clear Calc 35.42, Est GFR (MDRD) Af Amer 58 L, Est GFR (MDRD) Non-Af 48 L, BUN/Creatinine Ratio 21.4 H, Glucose 168 H, Calcium 8.2 L 11/13/19 11:38: POC Glucose 155 H Current Medications Acetaminophen (Tylenol) 650 mg PO Q6H PRN PRN PRN Reason: Pain Score 1-10/Temp > 100.7 F Albuterol Sulfate (Ventolin Aerosols) 2.5 mg INHALATION Q4H PRN PRN PRN Reason: shortness of breath/wheezing Last Admin: 11/13/19 10:39 Dose: 2.5 mg Documented by: [facility]) [facility] Last Admin: 11/13/19 08:12 Dose: 300 mg Documented by: Aspirin (Aspirin, Baby) [facility] Last Admin: 11/13/19 08:11 Dose: 81 mg Documented by: Atorvastatin Calcium (Lipitor) 10 mg PO DAILY@2200 [facility] Last Admin: 11/12/19 22:27 Dose: 10 mg Documented by: Clonidine (Catapres) 0.2 mg PO BID [facility] Last Admin: 11/13/19 08:13 Dose: 0.2 mg Documented by: Enoxaparin Sodium (Lovenox) 30 mg SC DAILY [facility] Last Admin: 11/13/19 09:48 Dose: 30 mg Documented by: Glucagon () 1 mg IM .X1 PRN PRN Reason: Hypoglycemia Guaifenesin (Mucinex) 1,200 mg PO BID [facility] Last Admin: 11/13/19 08:16 Dose: 1,200 mg Documented by: Azithromycin 500 mg/ Dextrose 255 mls @ 250 mls/hr IV Q24@2200 [facility] Last Infusion: 11/13/19 00:04 Dose: Infused Documented by: Ceftriaxone Sodium 2 gm/ (Sodium Chloride) 50 mls @ 100 mls/hr IV Q24@2200 [facility] Last Infusion: 11/12/19 22:44 Dose: Infused Documented by: Dextrose (Dextrose 10%-Water) 250 mls @ 999 mls/hr IV .Q16M PRN; Protocol PRN Reason: HYPOGLYCEMIA Sodium Chloride () 250 mls @ 15 mls/hr IV .[id number] PRN PRN Reason: Saline Flush Sodium Chloride () 250 mls @ 15 mls/hr IV .[id number] PRN PRN Reason: Additional IVPB Infusion Indapamide (Lozol) 2.5 mg PO DAILY [facility] Last Admin: 11/13/19 08:15 Dose: 2.5 mg Documented by: Insulin Human Lispro (Humalog Kwikpen (Bkc)) [facility]; Protocol Last Admin: 11/13/19 12:38 Dose: 1 units Documented by: Losartan Potassium (Cozaar) 50 mg PO DAILY [facility] Last Admin: 11/13/19 08:14 Dose: 50 mg Documented by: Metformin [facility] (Glucophage) [facility] Metoprolol Tartrate (Lopressor (Beta Marlys)) 100 mg PO BID [facility] Last Admin: 11/13/19 08:14 Dose: 100 mg Documented by: Nitroglycerin (Nitrostat) 0.4 mg SUBLINGUAL Q5M PRN PRN Reason: CARDIAC/CHEST PAIN Ondansetron HCl (Zofran) 4 mg IV Q8H PRN PRN PRN Reason: NAUSEA/VOMITING Polyethylene Glycol (Miralax) 17 gm PO DAILY [facility] Last Admin: 11/13/19 08:47 Dose: Not Given Documented by: Sodium Chloride () 10 - 40 ml IV UD PRN PRN Reason: SALINE FLUSH Last Admin: 11/13/19 00:16 Dose: 10 ml Documented by: Medical Necessity - Tobacco Use Smoking Status: Never smoker Assessment/Plan All Active Problems (Last Updated 11/06/19 @ 16:04 by Kena Prakash Bronchitis (Acute) 74 y/o female admitted with a complaint of shortness of breath, fever, chills and cough and CT chest finding showing atypical pneumonia, mainly interstitial in bilateral lung bases. 1. Acute hypoxic respiratory insufficiency, hypoxia due to SIRS (hypoxia and leukocytosis ) due to community acquired pneumonia, failed outpatient therapy: Currently on IV Rocephin and Zithromax. Lactic acid normal. CTA did show findings suspicious for atypical pneumonia with areas of subtle groundglass opacities with interspersed large nodular densities scattered throughout the lungs with bilateral lung base multiple small general densities. Urinary antigens are negative. Respiratory panel negative. Blood cultures x2 are pending. On DuoNeb as needed. Patient will need repeat CT chest after pneumonia has resolved as the findings raised suspicion of metastatic disease although she does not have a history of cancer or family history of cancer. Patient is clinically stable but requires 2 L of oxygen on ambulation. We will try to wean off the oxygen. Continue IV antibiotics 2. Community acquired pneumonia: 3. SKYLA: Admitting creatinine 1.58, BUN 33. Improved to 29/1.3. On IV fluid normal saline, prerenal in etiology. 4. Type 2 diabetes mellitus: Currently Metformin on hold, resume from tomorrow. Accu-Cheks and cover with Hem-o-slade sliding scale. 5. Hypertension: Fairly controlled for age. On clonidine, indapamide and m etoprolol. Also on valsartan. IV hydralazine PRN. 6. History of gout: On allopurinol DVT prophylaxis: Lovenox Total time of the visit including total time spent in counseling or coordination of care, (more than 50% of the total time, spent in obtaining medical information from nurses and other ancillary care providers), discussion with patient and nursing staff, review of labs and imaging is 30 minutes Clinical Impression(s) from Imaging Studies Chest X-Ray 11/11/19 19:25 IMPRESSION: No acute cardiopulmonary findings Electronically Signed: Woo Ramachandran, at 20:50 EST Tel , Service support , Chest CTA 11/11/19 21:33 IMPRESSION: No visualized pulmonary embolism. Findings are highly suspicious for atypical pneumonia with areas of subtle groundglass opacity with interspersed Smudgy nodular densities scattered throughout the lungs with bilateral lung base multiple smudgy nodular densities. Recommend follow to clearing as pulmonary nodularity can be associated with metastatic disease. In this setting is thought to represent inflammatory change. Probable calcified granuloma in the left apex. There is a focal outpouching with a bubbly food-like appearance to the right of the distal esophagus suspicious for a diverticulum. Recommend consideration for a follow-up esophagram when appropriate. There is associated wall thickening of the esophagus suspicious for esophagitis. There is a well-circumscribed cyst within the liver in the right hepatic lobe with Hounsfield units in the range of simple fluid. Code Visit Inpatient E&M: 84700 Subs Hosp L2
[2019-11-13 16:45] LABS: Bedside Glucose 135 mg/dL (70-110)
[2019-11-13] MEDS: Atorvastatin Calcium 10 MG Tablet PO (23:14)
[2019-11-13 23:25] LABS: Bedside Glucose 201 mg/dL (70-110)
[2019-11-14] VITALS (7 sets, daily range): BP systolic 129–161; BP diastolic 71–92; PULSE 64–80; RESP 16–18; TEMP 36.8; O2SAT 89–96
[2019-11-14] MEDS: 0.9% Saline Lock 10 ML Syringe IV (00:23)
[2019-11-14 06:05] LABS: Absolute Lymphocyte Count 1.89 X10^3/uL (0.83-4.51); Absolute Neutrophil Count 6.7 X10^3/uL (2.0-7.7); Basophil# 0.09 X10^3/uL; Basophil% 0.9 % (0-1); Eosinophil# 0.52 X10^3/uL; Eosinophils% 5.1 % (0-5); Lymphocyte # 1.89 X10^3/ul (4.0); Lymphocyte % 18.7 % (19-41); Mean Corp Hgb Conc 32.3 g/dL (32-36); Mean Corpuscular Hgb 30.8 pg (27.0-32.0); Mean Corpuscular Volume 95.4 fL (81-99); Mean Platelet Vol. 9.8 fl (6.2-12.0); Monocyte# 0.83 X10^3/uL; Monocyte% 8.2 % (0-10); NRBC Flagged by Analyzer 0 % (0-5); Neutrophil % 66.4 % (47-70); Platelet Count 263 K/mm3 (150-450); RBC Distribution Width CV 14.4 % (11.6-14.6); Red Blood Count 3.25 M/mm3 (4.2-5.4); White Blood Count 10.1 K/mm3 (4.4-11.0)
[2019-11-14 06:23] LABS: Anion Gap 6 (5-15); BUN 20 mg/dL (7-18); BUN/Creat Ratio 20.2 RATIO (10-20); Calcium,Total 8.2 mg/dL (8.5-10.1); Chloride 110 mmol/L (98-107); Creatinine, Serum 0.99 mg/dL (0.55-1.02); EST Glomerular Filtration Rate 58 mL/min (>60); Est Glom Filt Rate - Afr Amer 70 mL/min (>60); Estimated Creatinine Clearance 41.87 ml/min; Glucose 107 mg/dL (74-106); Potassium 3.7 mmol/L (3.5-5.1); Sodium Level 146 mmol/L (136-145)
[2019-11-14 06:40] LABS: Bedside Glucose 120 mg/dL (70-110)
--- NOTE | 2019-11-14 09:36 | DCINST_ITS ---
You will use the following diet at home:: Cardiac Your food should be the consistency of: Regular Discharge Activity: Return to Normal Activity, May Not Drive - For 3 days or until sees PCP Weight Bearing Status: Weight bearing as tolerated Additional Activity Instructions:: Do not take metformin and valsartan for [address] chest with IV contrast. Call your doctor if you observe: Fever of 101 or Higher, Coldness, Increased Pain, Numbness or Tingling, Change in Color, Inability to urinate, Inability to have a bowel movement, Shortness of breath, Dizziness, Fainting spells, Swelling in the ankles, Chest pain, Prolonged hiccoughing, Increased palpitations (irregular heartbeat), Calf discomfort, Uncontrolled pain Allergies/Adverse Reactions: Allergies diltiazem [From Cardizem] Allergy (Mild, Verified 11/11/19 18:20) HIVES minoxidil Allergy (Mild, Verified 11/11/19 18:20) TACHYCARDIA prazosin [From Minipress] Adverse Reaction (Verified 11/11/19 18:41) Other PALPITATIONS Medications to take at Discharge albuterol sulfate 90 mcg/actuation aerosol inhaler 2 puff INHALATION 6XD PRN #8 g 11/06/19 allopurinol 300 mg tablet 300 mg PO DAILY 11/06/19 aspirin 81 mg chewable tablet 81 mg PO DAILY 11/06/19 atorvastatin 10 mg tablet 10 mg PO DAILY 11/06/19 clonidine HCl 0.2 mg tablet 0.2 mg PO BID tab 11/06/19 indapamide 2.5 mg tablet 2.5 mg PO DAILY 11/06/19 polyethylene glycol 3350 17 gram/dose oral powder 17 g PO DAILY 11/06/19 Metoprolol Tartrate [Lopressor] 100 mg PO BID 11/11/19 Cefdinir [Omnicef [equiv]] 300 mg PO Q12H #10 cap 11/13/19 Guaifenesin [Mucinex] 1,200 mg PO BID #14 tab 11/13/19 Metformin HCl [Glucophage] 500 mg PO BID #0 11/13/19 Valsartan 160 mg PO DAILY #0 11/13/19 The following prescriptions were given: Guaifenesin [Mucinex] 1,200 mg PO BID #14 tab Transmission Status: Received by [facility]/pharmacy #[id number] Cefdinir [Omnicef [equiv]] 300 mg PO Q12H #10 cap Transmission Status: [facility] by [id number] Primary Care Physician: Edgar Menezes [Primary Care Provider] - Please follow up with your Primary Care Physician in: In 1 to 2 weeks Test Results: Test results from this visit will be discussed in further detail at your follow- up appointment, if applicable. Please Follow Up With: Shaquille Daily DO When: In 3 to [address] chest. B/L LL Pneumonia
--- NOTE | 2019-11-14 09:42 | DS.PCM_ITS ---
Discharge Date and Diagnosis Date of Admission: 11/11/19 Date of Discharge: 11/14/19 Hospital Course and Treatment Summary of Care Provided: 74 y/o female admitted with a complaint of shortness of breath, fever, chills and cough and CT chest finding showing atypical pneumonia, mainly interstitial in bilateral lung bases. 1. Acute hypoxic respiratory insufficiency, hypoxia due to SIRS (hypoxia and leukocytosis ) due to community acquired pneumonia, failed outpatient therapy: Currently on IV Rocephin and Zithromax. Lactic acid normal. CTA did show findings suspicious for atypical pneumonia with areas of subtle groundglass opacities with interspersed large nodular densities scattered throughout the lungs with bilateral lung base multiple small general densities. Urinary antigens are negative. Respiratory panel negative. Blood cultures x2 are are negative for more than 48 hours On DuoNeb as needed. Patient will need repeat CT chest after pneumonia has resolved as the findings raised suspicion of metastatic disease although she does not have a history of cancer or family history of cancer. Patient is clinically stable. Home oxygen evaluation. She is weaned off oxygen at rest. Patient is discharged on cefdinir for 5 more days. Walking pulse oximetry was done and patient does not require oxygen. Hypoxia resolved. 2. Community acquired pneumonia: As mentioned above. 3. SKYLA: Admitting creatinine 1.58, BUN 33. Improved to 29/1.3. On IV fluid normal saline, prerenal in etiology. SKYLA resolved. BUN/creat 20/0.9. Start valsartan at lower dose 160 mg from tomorrow a.m. 4. Type 2 diabetes mellitus: Currently Metformin on hold. Accu-Cheks and cover with Hem-o-slade sliding scale. Sugars are controlled 5. Hypertension: Fairly controlled for age. On clonidine, indapamide and metoprolol. Also on valsartan. IV hydralazine PRN. 6. History of gout: On allopurinol DVT prophylaxis: Lovenox Discharge medication reconciliation done. Discharge follow-up instructions completed. Discharge process discussed with the patient and all questions were answered to patient's satisfaction. Total time spent, exact 35 minutes on discharge meds reconciliation, examination, coordination of care with nurses and ancillary staff, review of imaging and blood test and discussion with the patient on follow-up instructions Clinical Impression(s) from Imaging Studies Chest X-Ray 11/11/19 19:25 IMPRESSION: No acute cardiopulmonary findings Electronically Signed: Woo Ramachandran, at 20:50 EST Tel , Service support , Chest CTA 11/11/19 21:33 IMPRESSION: No visualized pulmonary embolism. Findings are highly suspicious for atypical pneumonia with areas of subtle groundglass opacity with interspersed Smudgy nodular densities scattered throughout the lungs with bilateral lung base multiple smudgy nodular densities. Recommend follow to clearing as pulmonary nodularity can be associated with metastatic disease. In this setting is thought to represent inflammatory change. Probable calcified granuloma in the left apex. There is a focal outpouching with a bubbly food-like appearance to the right of the distal esophagus suspicious for a diverticulum. Recommend consideration for a follow-up esophagram when appropriate. There is associated wall thickening of the esophagus suspicious for esophagitis. There is a well-circumscribed cyst within the liver in the right hepatic lobe with Hounsfield units in the range of simple fluid. Objective: No fever. Patient pulse ox is 95% on room air. Hemodynamically stable. Discharge was held yesterday because pulse ox 88% on ambulation at room air and 92% on 2 L of oxygen on admission. - Physical Exam Vitals/I&O's: Vital Signs Temp Pulse Resp BP Pulse Ox 98.1 F 69 18 136/67 H 96 11/13/19 07:59 11/13/19 08:14 11/13/19 08:44 11/13/19 08:14 11/13/19 08:44 Oxygen Flow Rate (L/min) 0.5 Oxygen Delivery Method Nasal Cannula Weight: 127 lb 10.362 oz Body Mass Index (BMI) 22.6 Intake and Output for Last 24 Hours 11/11/19 11/12/19 11/13/19 23:59 23:59 23:59 Intake Total 1340 / 1340 3630 / 4170 1195 / 1195 Output Total 875 / 875 Balance 1340 / 1340 2755 / 3295 1195 / 1195 General: Alert, Oriented x3, Cooperative HEENT: Atraumatic, PERRLA, EOMI, Normocephalic Neck: Supple, No JVD, Negative Carotid Bruits Lungs: Clear to auscultation, Normal air movement Cardiovascular: Regular rate, No murmurs Abdomen: Bowel Sounds Present, Soft, Non Tender Extremities: No edema, Capillary Refill Less than 3 Seconds Skin: No rashes, No breakdown Musculoskeletal: No Tenderness to Palpation of Joints or Extremities Neurological: Cranial nerves II-XII grossly intact Psych/Mental Status: Normal Affect, Appropriate Microbiology Past 72 Hours 11/11/19 19:24 Mucosa - Nasopharyngeal Respiratory Panel (PCR) - Final 11/12/19 03:30 Urine, Clean Catch Streptococcus pneumoniae Antigen (M - Final 11/12/19 03:30 Urine, Clean Catch Legionella Antigen - Final 11/11/19 19:20 Mucosa - Nasopharyngeal Influenza Types A,B Direct FA (PEDRO) - Final Laboratory Results 11/12/19 10:59: POC Glucose 228 H 11/12/19 11:01: POC Glucose 208 H 11/12/19 16:44: POC Glucose 181 H 11/12/19 22:12: POC Glucose 211 H 11/13/19 06:33: POC Glucose 139 H Current Medications Acetaminophen (Tylenol) 650 mg PO Q6H PRN PRN PRN Reason: Pain Score 1-10/Temp > 100.7 F Albuterol Sulfate (Ventolin Aerosols) 2.5 mg INHALATION Q4H PRN PRN PRN Reason: shortness of breath/wheezing [facility] Admin: 11/13/19 08:12 Dose: 300 mg Documented by: Aspirin (Aspirin, Baby) [facility] Last Admin: 11/13/19 08:11 Dose: 81 mg Documented by: Atorvastatin Calcium (Lipitor) 10 mg PO DAILY@2200 [facility] Last Admin: 11/12/19 22:27 Dose: 10 mg Documented by: Clonidine (Catapres) 0.2 mg PO BID [facility] Last Admin: 11/13/19 08:13 Dose: 0.2 mg Documented by: Enoxaparin Sodium (Lovenox) 30 mg SC DAILY [facility] Last Admin: 11/12/19 09:59 Dose: 30 mg Documented by: Glucagon () 1 mg IM .X1 PRN PRN Reason: Hypoglycemia Guaifenesin (Mucinex) 1,200 mg PO BID [facility] Last Admin: 11/13/19 08:16 Dose: 1,200 mg Documented by: Azithromycin 500 mg/ Dextrose 255 mls @ 250 mls/hr IV Q24@2200 [facility] Last Infusion: 11/13/19 00:04 Dose: Infused Documented by: Ceftriaxone Sodium 2 gm/ (Sodium Chloride) 50 mls @ 100 mls/hr IV Q24@2200 [facility] Last Infusion: 11/12/19 22:44 Dose: Infused Documented by: Dextrose (Dextrose 10%-Water) 250 mls @ 999 mls/hr IV .Q16M PRN; Protocol PRN Reason: HYPOGLYCEMIA Sodium Chloride () 250 mls @ 15 mls/hr IV .[id number] PRN PRN Reason: Saline Flush Sodium Chloride () 250 mls @ 15 mls/hr IV .[id number] PRN PRN Reason: Additional IVPB Infusion Indapamide (Lozol) 2.5 mg PO DAILY [facility] Last Admin: 11/13/19 08:15 Dose: 2.5 mg Documented by: Insulin Human Lispro (Humalog Kwikpen (Bkc)) 0 unit SC ACHS [facility]; Protocol Last Admin: 11/13/19 06:34 Dose: Not Given Documented by: Losartan Potassium (Cozaar) 50 mg PO DAILY [facility] Last Admin: 11/13/19 08:14 Dose: 50 mg Documented by: [facility]) [facility] Metoprolol Tartrate (Lopressor (Beta Marlys)) 100 mg PO BID [facility] Last Admin: 11/13/19 08:14 Dose: 100 mg Documented by: Nitroglycerin (Nitrostat) 0.4 mg SUBLINGUAL Q5M PRN PRN Reason: CARDIAC/CHEST PAIN Ondansetron HCl (Zofran) 4 mg IV Q8H PRN PRN PRN Reason: NAUSEA/VOMITING Polyethylene Glycol (Miralax) 17 gm PO DAILY [facility] Last Admin: 11/13/19 08:47 Dose: Not Given Documented by: Sodium Chloride () 10 - 40 ml IV UD PRN PRN Reason: SALINE FLUSH Last Admin: 11/13/19 00:16 Dose: 10 ml Documented by: Discharge Activity: Return to Normal Activity, May Not Drive - For 3 days or until sees PCP Weight Bearing Status: Weight bearing as tolerated Additional Activity Instructions:: Do not take metformin and valsartan for [address] chest with IV contrast. Call your doctor if you observe: Fever of 101 or Higher, Coldness, Increased Pain, Numbness or Tingling, Change in Color, Inability to urinate, Inability to have a bowel movement, Shortness of breath, Dizziness, Fainting spells, Swelling in the ankles, Chest pain, Prolonged hiccoughing, Increased palpitations (irregular heartbeat), Calf discomfort, Uncontrolled pain Home Medications: Medications to take at Discharge albuterol sulfate 90 mcg/actuation aerosol inhaler 2 puff INHALATION 6XD PRN #8 g 11/06/19 allopurinol 300 mg tablet 300 mg PO DAILY 11/06/19 aspirin 81 mg chewable tablet 81 mg PO DAILY 11/06/19 atorvastatin 10 mg tablet 10 mg PO DAILY 11/06/19 clonidine HCl 0.2 mg tablet 0.2 mg PO BID tab 11/06/19 indapamide 2.5 mg tablet 2.5 mg PO DAILY 11/06/19 polyethylene glycol 3350 17 gram/dose oral powder 17 g PO DAILY 11/06/19 Metoprolol Tartrate [Lopressor] 100 mg PO BID 11/11/19 Cefdinir [Omnicef [equiv]] 300 mg PO Q12H #10 cap 11/13/19 Guaifenesin [Mucinex] 1,200 mg PO BID #14 tab 11/13/19 Metformin HCl [Glucophage] 500 mg PO BID #0 11/13/19 Valsartan 160 mg PO DAILY #0 11/13/19 Following Prescrptions Were Given to Patient: Guaifenesin [Mucinex] 1,200 mg PO BID #14 tab Transmission Status: Received by [id number] Cefdinir [Omnicef [equiv]] 300 mg PO Q12H #10 cap Transmission Status: Received by [id number] Primary Care Physician: Edgar Menezes [Primary Care Provider] - Please follow up with your Primary Care Physician in: In 1 to 2 weeks Please Follow Up With: Shaquille Daily DO When: In 3 to [address] chest. B/L LL Pneumonia Medical Necessity - Tobacco Use Smoking Status: Never smoker Meaningful Use Info Meaningful Use Diagnoses (Choose all that apply): None applicable Code Visit Inpatient E&M: 91189 Disch Hosp
[2019-11-14] MEDS: Indapamide 2.5 MG Tablet PO (10:47)
[2019-11-14] MEDS: Metoprolol Tartrate 100 MG Tablet PO (10:47)
[2019-11-14] MEDS: cloNIDine HCl 0.2 MG Tablet PO (10:47)
[2019-11-14] MEDS: guaiFENesin 1,200 MG Tablet 1200 MG PO (10:48)
[2019-11-14] MEDS: Aspirin 81 MG TAB.CHEW PO (10:48)
[2019-11-14] MEDS: Allopurinol 300 MG Tablet PO (10:48)
[2019-11-14] MEDS: Losartan Potassium 50 MG Tablet PO (10:48)
--- NOTE | 2019-11-14 11:07 | NURSING ---
Pt wants to take her Blood sugar at home and treat at home instead of this nurse taking it now as ordered. BP elevated but pt recently took her BP meds.
== END 2019-11-14 11:35 | disposition home or self-care (01) | DRG 194 ==
LOC: ED 19:13 → MS3 23:07
PROVIDERS: Admitting Provider Student in an Organized Health Care Education/Training Program; Emergency Provider Emergency Medicine; PCP Family Medicine; Visit Provider Internal Medicine
DX: J18.9 Pneumonia, unspecified organism (principal); N17.9 Acute kidney failure, unspecified; R09.02 Hypoxemia; Z79.84 Long term (current) use of oral hypoglycemic drugs; R06.89 Other abnormalities of breathing; E11.9 Type 2 diabetes mellitus without complications; M10.9 Gout, unspecified; I10 Essential (primary) hypertension
CPT/HCPCS: 36415; 71046; 71275; 80048; 82962; 83605; 84484; 85025; 87040; 87449; 87633; 87804; 93005; 94640; 99285; J7030; Q9967; A4216; J0696

== ENCOUNTER → 2020-02-10 13:50 | Outpatient (CLI) | payer MEDICARE, OTHER, SELFPAY ==
[2020-01-15 10:18] VITALS: BMI 22.6
--- NOTE | 2020-02-10 13:51 | CT_ITS ---
STUDY: CT CHEST WITHOUT CONTRAST REASON FOR EXAM: Female, 75 years old. Lung nodule follow up, denies chest pain or SOB. Hx diabetes and hypertension. RADIATION DOSAGE (If Supplied By Facility): CTDIvol = ( 6.56 ) mGy, DLP = ( 239.49 ) mGycm TECHNIQUE: Transaxial imaging was performed without the administration of intravenous contrast material. Individualized dose optimization techniques were used for this CT. COMPARISON: CTA chest 11/11/2019 FINDINGS: Normal visualized trachea and bronchi. The lungs appear hyperinflated. There is a calcified nodule in the left apex measuring 4.3 mm. There are subtle areas of minimal groundglass opacity. There is mild bronchial wall thickening. Patchy clusters of nodularity in the and right upper lobe and bilateral lower lobes have decreased since prior exam in keeping with resolving infectious or inflammatory process. There is stable tubular nodular opacity in the peripheral right lower and left upper lobe on image 59 and 64, respectively, keeping with mucous inspissation. Previously seen right upper lobe nodular density has resolved. There is a stable right costophrenic angle nodule measuring 8 x 9 mm On image 97. There is no demonstrated pleural abnormality. Normal heart and pericardium. Moderate coronary artery calcification. Normal mediastinum. Normal hilar regions. Normal unenhanced pulmonary arteries. Trace aortic atherosclerotic disease. Again seen is a right lateral diverticulum of the distal esophagus measuring 2.7 x 2.3 cm, unchanged. There is mild thickening of the mid and distal esophageal wall. There are multi-level degenerative changes of the thoracic spine. There is exaggerated kyphosis of the thoracic spine. Stable right hepatic lobe cyst. CT/Chest without Contrast IMPRESSION: 1. There are patchy clusters of nodularity in the right upper and bilateral lower lobes which have decreased since prior exam in keeping with resolving infectious or inflammatory process. There are other regions of stable tubular nodular opacity in the peripheral right lower and left upper lobes, felt to represent mucous inspissation, mild infectious or inflammatory process. 2. Stable 8 x 9mm right costophrenic angle nodule. Continued chest CT follow-up in 3 months. Electronically Signed: Dom Zhu, at 11:45 EDT Tel , Service support ,
== END ==
PROVIDERS: PCP Family Medicine; Referring Provider Internal Medicine Critical Care Medicine; Visit Provider Internal Medicine Critical Care Medicine
DX: R91.8 Other nonspecific abnormal finding of lung field (principal)
CPT/HCPCS: 71250

== ENCOUNTER → 2020-03-29 08:59 | Outpatient (CLI) | payer MEDICARE, OTHER, SELFPAY ==
[2020-01-15 10:18] VITALS: BMI 22.6
--- NOTE | 2020-03-29 12:39 | PFT ---
INTRODUCTION: The patient is a 75-year-old female that presents for pulmonary function studies secondary to a diagnosis of lung nodules. Respiratory therapy reports good patient effort. Bronchodilators were used during testing. INTERPRETATION: Forced expiration spirometry demonstrates the presence of a moderately severe large airways obstructive ventilatory defect. There was a partial, albeit technically nonsignificant, response to aerosolized bronchodilators. Spirograms are of good quality and do not plateau indicating slow emptying of the lungs. Body plethysmography was performed and revealed an elevated TLC and RV, indicative of underlying hyperinflation and air trapping. Diffusing capacity by single breath CO was preserved at 94% of predicted. IMPRESSION: Moderately severe large airways obstructive ventilatory defect with associated hyperinflation and air trapping. There was a partial, albeit technically nonsignificant, response to aerosolized bronchodilators.
== END ==
PROVIDERS: PCP Family Medicine; Referring Provider Internal Medicine Critical Care Medicine; Visit Provider Internal Medicine Critical Care Medicine
DX: J47.9 Bronchiectasis, uncomplicated (principal)
CPT/HCPCS: 94060; 94726; 94729

== ENCOUNTER → 2020-05-04 13:12 | Outpatient (CLI) | payer MEDICARE, OTHER, SELFPAY ==
[2020-01-15 10:18] VITALS: BMI 22.6
--- NOTE | 2020-05-04 13:15 | CT_ITS ---
STUDY: CT ABDOMEN AND PELVIS WITH CONTRAST REASON FOR EXAM: Female, 75 years old. WEIGHT LOSS. 25 POUNDS IN 6 MONTHS RADIATION DOSAGE (If Supplied By Facility): CTDIvol = ( 10.84 ) mGy, DLP = ( 385.45 ) mGycm TECHNIQUE: Transaxial images were obtained from the dome of the diaphragm to the symphysis pubis with oral contrast. IV 100mL Isovue-300 was administered. Sagittal and coronal images were reconstructed. Individualized dose optimization techniques were used for this CT. COMPARISON: None. FINDINGS: The visualized lung bases are unremarkable. The visualized portions of the heart are within normal limits. 2.5 cm cyst in the posterior segment the right lobe of the liver. The gallbladder is contracted. Normal spleen. Normal pancreas. Normal bilateral adrenal glands. Normal right kidney. Normal left kidney. There is a small hiatal hernia. Normal small intestine. There are multiple colonic diverticula consistent with diverticulosis. The appendix is visualized and appears normal. Normal abdominal aorta. Normal inferior vena cava. Normal retroperitoneum. Normal urinary bladder. Prominent uterine cervix. Clinical correlation is recommended. Normal abdominal wall. Normal osseous structures. CT/Abdomen/Pelvis WITH Contrast IMPRESSION: Prominent uterine cervix and clinical correlation is recommended. Electronically Signed: Owen Mello MD at 14:05 EDT Tel , Service support ,
== END ==
PROVIDERS: PCP Family Medicine; Referring Provider Family Medicine; Visit Provider Family Medicine
DX: R63.4 Abnormal weight loss (principal)
CPT/HCPCS: 74177; Q9967

== ENCOUNTER 2020-06-30 14:30 | Outpatient (RCR) | payer MEDICARE, OTHER, SELFPAY ==
[2020-01-15 10:18] VITALS: BMI 22.6
== END 2020-07-17 23:59 ==
LOC: DC 14:30
PROVIDERS: PCP Family Medicine; Visit Provider Family Medicine
DX: Z71.3 Dietary counseling and surveillance (principal); E11.9 Type 2 diabetes mellitus without complications
CPT/HCPCS: 97802; G0108

== ENCOUNTER 2020-08-03 13:00 | Outpatient (RCR) | payer MEDICARE, OTHER, SELFPAY ==
[2020-01-15 10:18] VITALS: BMI 22.6
== END 2020-08-16 23:59 ==
LOC: DC 13:00
PROVIDERS: PCP Family Medicine; Visit Provider Family Medicine
DX: Z71.3 Dietary counseling and surveillance (principal); E11.9 Type 2 diabetes mellitus without complications; I10 Essential (primary) hypertension
CPT/HCPCS: 97803; G0108

== ENCOUNTER 2020-08-31 14:23 | Outpatient (RCR) | payer MEDICARE, OTHER, SELFPAY ==
[2020-01-15 10:18] VITALS: BMI 22.6
== END 2020-08-31 23:59 | disposition home or self-care (01) ==
LOC: DC 14:23
PROVIDERS: PCP Family Medicine; Visit Provider Family Medicine
DX: E11.9 Type 2 diabetes mellitus without complications (principal); I10 Essential (primary) hypertension
CPT/HCPCS: 97803

== ENCOUNTER 2020-11-18 12:05 | Outpatient (RCR) | payer MEDICARE, OTHER, SELFPAY ==
[2020-01-15 10:18] VITALS: BMI 22.6
[2020-11-18] MEDS: COVID-19 VACC, MRNA(PFIZER)/PF 30 MCG/0.3 ML SYRINGE IM (16:55)
[2020-12-09] MEDS: COVID-19 VACC, MRNA(PFIZER)/PF 30 MCG/0.3 ML SYRINGE IM (16:20)
== END 2021-02-22 23:59 ==
LOC: IMMUN 12:05
PROVIDERS: PCP Family Medicine; Visit Provider Family Medicine
DX: Z23 Encounter for immunization (principal)
CPT/HCPCS: 0001A; 0002A; 91300

== ENCOUNTER 2023-02-05 09:24 | Day surgery (SDC) | payer MEDICARE, OTHER, SELFPAY ==
[2023-02-05] VITALS (8 sets, daily range): BP systolic 87–150; BP diastolic 48–84; PULSE 64–69; RESP 16–18; TEMP 36.4–37.2; O2SAT 93–99; BMI 21.0
[2023-02-05] MEDS: Lactated Ringers 1,000 ML 15 ML IV (09:52)
[2023-02-05 10:26] LABS: Bedside Glucose 116 mg/dL (74-106)
--- NOTE | 2023-02-05 10:27 | PCM.HP.BLA ---
History and Physical Date of Admission: 02/05/23 I have examined the patient and the H&P has been reviewed. There are no clinical changes since date of exam.
--- NOTE | 2023-02-05 11:00 | OP.CCLET_ITS ---
02/05/2023 Edgar Menezes Re : Upper GI endoscopy procedure for Jesenia De Paz Dear Clif This procedure was performed on Sunday, February 05, 2023. My impressions and recommendations are as follows: Impressions : - Glycogenic acanthosis of the esophagus. - Diverticulum in the middle third of the esophagus. - Diverticulum in the lower third of the esophagus. - Food in the lower third of the esophagus. Removal was successful. - Benign-appearing esophageal stenosis. Dilated. - Medium-sized hiatal hernia. - Normal first portion of the duodenum. Recommendations : - Discharge patient to home. - Full liquid diet. - Continue present medications. My findings are described in the full procedure note, which is enclosed. If I can be of further assistance, please feel free to contact me at . Sincerely, Jamal Stahl, 02/05/2023 11:00:33 AM This report has been signed electronically.
--- NOTE | 2023-02-05 11:00 | OP.EGD_ITS ---
Patient Name: Jesenia De Paz Procedure Date: 02/05/2023 10:19 AM Date of : 1945 Age: 78 Procedure: Upper GI endoscopy Indications: Dysphagia Providers: Jamal Stahl DO Referring MD: Jamal Stahl DO Medicines: Monitored Anesthesia Care Patient Profile: This is a 78 year old female. Refer to note in patient chart for documentation of history and physical. Patient has symptoms of dysphagia with both liquids and solids. Complications: No immediate complications. Procedure: Pre-Anesthesia Assessment: - Prior to the procedure, a History and Physical was performed, and patient medications and allergies were reviewed. The patient is competent. The risks and benefits of the procedure and the sedation options and risks were discussed with the patient. All questions were answered and informed consent was obtained. Patient identification and proposed procedure were verified by the physician in the pre-procedure area. Mental Status Examination: alert and oriented. Respiratory Examination: clear to auscultation. CV Examination: normal. Prophylactic Antibiotics: The patient requires prophylactic antibiotics due to a prior history of acute GI bleeding and for the planned performance of dilation. Prior Anticoagulants: The patient has taken no previous anticoagulant or antiplatelet agents. ASA Grade Assessment: II - A patient with mild systemic disease. After reviewing the risks and benefits, the patient was deemed in satisfactory condition to undergo the procedure. The anesthesia plan was to use monitored anesthesia care (MAC). Immediately prior to administration of medications, the patient was re-assessed for adequacy to receive sedatives. The heart rate, respiratory rate, oxygen saturations, blood pressure, adequacy of pulmonary ventilation, and response to care were monitored throughout the procedure. The physical status of the patient was re-assessed after the procedure. After obtaining informed consent, the endoscope was passed under direct vision. Throughout the procedure, the patient's blood pressure, pulse, and oxygen saturations were monitored continuously. The Endoscope was introduced through the mouth, and advanced to the second part of duodenum. The upper GI endoscopy was accomplished without difficulty. The patient tolerated the procedure well. Scope In: 10:32:35 AM Scope Out: 10:49:34 AM Total Procedure Duration Time 0 hours 16 minutes 59 seconds Findings: Diffuse glycogenic acanthosis was found in the entire esophagus. A non-bleeding diverticulum with a small opening and no stigmata of recent bleeding was found in the middle third of the esophagus. A non-bleeding diverticulum with a large opening and no stigmata of recent bleeding was found in the lower third of the esophagus. Food was found in the lower third of the esophagus. Removal of food was accomplished. Verification of patient identification for the specimen was done. Estimated blood loss was minimal. One benign-appearing, intrinsic stenosis was found 40 to 42 cm from the incisors. This stenosis was severe and. The stenosis was traversed after dilation. A TTS dilator was passed through the scope. Dilation with a 12-13.5-15 mm balloon dilator was performed to 14 mm. The dilation site was examined and showed mild improvement in luminal narrowing. Estimated blood loss: none. A medium-sized hiatal hernia was present. No other significant abnormalities were identified in a careful examination of the stomach. The first portion of the duodenum was normal. Impression: - Glycogenic acanthosis of the esophagus. - Diverticulum in the middle third of the esophagus. - Diverticulum in the lower third of the esophagus. - Food in the lower third of the esophagus. Removal was successful. - Benign-appearing esophageal stenosis. Dilated. - Medium-sized hiatal hernia. - Normal first portion of the duodenum. Recommendation: - Discharge patient to home. - Full liquid diet. - Continue present medications. Procedure Code(s): --- Professional --- 06009, Esophagogastroduodenoscopy, flexible, transoral; with removal of foreign body(s) 09404, Esophagogastroduodenoscopy, flexible, transoral; with transendoscopic balloon dilation of esophagus (less than 30 mm diameter) CPT copyright 2017 [employer]. All rights reserved. The codes documented in this report are preliminary and upon machine folder review may be revised to meet current compliance requirements. Jamal Stahl DO 02/05/2023 11:00:33 AM This report has been signed electronically. Number of Addenda: 0 Note Initiated On: 02/05/2023 10:19 AM
--- NOTE | 2023-02-05 12:18 | HP.PCM_ITS ---
History and Physical Date of Admission: 02/05/23 78 F who presents to the office today for f/u EGD which was indicated for dysphagia. 01/2023 EGD revealed diffuse glycogenic acanthosis in the entire esophagus, nonbleeding esophageal diverticulum in middle third of esophagus, nonbleeding large diverticulum in lower third of esophagus, food in the lower esophagus which Dr Stahl removed, medium sized hiatal hernia, esophageal stenosis which Dr Stahl dilated. Dysphagia is less problematic. Still takes pantoprazole daily. She denies any heartburn or acid reflux. Had difficulty swallowing for about a year. Sometimes needed to vomit up the stuck food. No weight loss.? Normal appetite. ROS Const Constitutional: No fatigue ENT ENT: No difficulty swallowing Gastro GI: No abdominal pain, belching, bloating, change in bowel habits, change in stool character, coffee ground emesis, constipation, cramping, diarrhea, heartburn, difficulty swallowing, feeling full early, excessive flatus, incontinent of stools, Vomiting blood/hematemesis, Blood in stool, loose stools, Black,tarry stools, nausea/dyspepsia, pain with swallowing, vomiting or other Musc Musculoskeletal: No joint pain Skin Skin: No yellowing of the eye or itchy eyes Psych Psychiatric: No anxiety and No depression Endo Endocrine: No fatigue Aller/Imm Allergy/Immunologic: No itchy eyes Chris/Lymp Hematologic/Lymphatic: No easy bleeding or easy bruising Exam Const General: cooperative, healthy appearing and comfortable Nutritional Appearance: average body habitus Orientation: alert and oriented x3 Quality Reporting Tobacco Screening ([facility] 138) Smoking Status: Never smoker Assessment and Plan Assessment and Plan (1) 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 She remains on pantoprazole 40 mg qam. EGD revealed diverticula in mid and lower esophagus, food in the large lower diverticulum. She has a medium-sized hiatal hernia. She has diffuse glycogenic acanthosis in the esophagus which may be due to reflux. Referral for eval for surgical repair of esophageal diverticula, will try [facility] since they live in [place]. (2) Esophageal dysphagia: ?Status:?Chronic (3) GERD (gastroesophageal reflux disease): ?Status:?Chronic (4) Hiatal hernia: ?Status:?Chronic I have examined the patient and the H&P has been reviewed. There are no clinical changes since date of exam.
== END 2023-02-05 12:22 | disposition home or self-care (01) ==
LOC: EN 09:24 → AC 09:36
PROVIDERS: PCP Family Medicine; Referring Provider Internal Medicine Gastroenterology; Visit Provider Internal Medicine Gastroenterology
PROC: 0DJ08ZZ Inspection of Upper Intestinal Tract, Via Natural or Artificial Opening Endoscopic (ICD-10-PCS; CPT 43235; principal; 2023-02-05 10:25)
DX: K22.5 Diverticulum of esophagus, acquired (principal); E11.9 Type 2 diabetes mellitus without complications; K44.9 Diaphragmatic hernia without obstruction or gangrene; K22.2 Esophageal obstruction; T18.128A Food in esophagus causing other injury, initial encounter; K22.89 Other specified disease of esophagus; Z79.84 Long term (current) use of oral hypoglycemic drugs; X58.XXXA Exposure to other specified factors, initial encounter; K21.9 Gastro-esophageal reflux disease without esophagitis; Z79.899 Other long term (current) drug therapy
CPT/HCPCS: 43249; 43247; 82962; J7120; J2405

== ENCOUNTER 2023-08-17 13:15 | Inpatient (IN) | payer MEDICARE, OTHER, SELFPAY ==
[2023-08-17 14:30] VITALS: BP 148/81; PULSE 81; RESP 18; TEMP 36.7; O2SAT 98; BMI 20.3
--- NOTE | 2023-08-17 15:19 | HP.PCM_ITS ---
HPI - General General Date of Admission: 08/17/23 Date of Service: 08/17/23 Chief Complaint: Here for 3 hours daily rehabilitation. HPI Narrative 07/30/2023 JENNA TERAN, is a 78 Female admitted [facility] with chest pain. Recent chemotherapy for breast cancer [address] Degroot ordered chemotherapy Adriamycin, Cyclophosphamide, Keytruda, Neulasta. Weak, not eating, tired, much worse than previous chemotherapy. Tachycardia 130 to 140. Fever, right upper chest port, diffuse red rash chronic. Mild dysphagia. Vancomycin, Zosyn, Fluconazole for neutropenic fever. Chest X-ray negative, CTA chest negative pulmonary embolism. Transfuse 1 unit PRBC for anemia. Serial troponins for chest pain negative. Consult Oncology for metastatic breast cancer. Hold Indapamide, give IV fluids for acute kidney injury. 08/08/2023 EGD with esophageal dilatation. 08/09/2023 Zosyn, Fluconazole. PT/OT debility. 08/10/2023 Tolerating liquid diet. 08/11/2023 Tolerating diet, oral medications, continue TPN, plan discharge to rehab. 08/12/2023 Lopressor IV, Hold anticoagulation for atrial fibrillation with RVR. Replace low potassium. Zosyn thru 08/21/2023 for E. Coli bacteremia, urinary tract infection. TPN, esophageal dilatation for dysphagia. Fluconazole IV esophageal candidiasis. GI noted soft diet tolerated after EGD with dilatation. [facility] for esophageal diverticula if unable to eat. Not PEG candidate, consider surgical or IR g-tube. 08/17/2023 Off TPN. 08/17/2023 Admit to for 3 hours daily rehabilitation, strengthening, prior to discharge home with . [facility] Medical History (Updated 08/17/23 @ 15:[address] Codey Licea MD) Arthritis Diabetes Difficulty swallowing Diverticular disease Esophageal dysphagia Gastric reflux GERD (gastroesophageal reflux disease) Gout Hiatal hernia History of diverticulitis History of IBS History of kidney stones Hypercholesteremia Hypertension IBS (irritable bowel syndrome) Non-smoker Osteoarthritis Wears glasses Home Medications albuterol sulfate 90 mcg/actuation aerosol inhaler 2 puff inhalation 6XD PRN shortness of breath or wheezing #8 grams 11/06/19 [Rx Last Taken Unknown] allopurinol 300 mg tablet 300 mg PO DAILY kidney health 11/06/19 [History Last Taken 08/17/23] aspirin 81 mg chewable tablet (Tan Chewable Low Dose Aspirin) 81 mg PO DAILY hearthealth 11/06/19 [History Last Taken 02/01/23] atorvastatin 10 mg tablet 10 mg PO DAILY lipitor 11/06/19 [History Last Taken Unknown] clonidine HCl 0.2 mg tablet 0.1 mg PO BID blood pressure 11/06/19 [History Last Taken Unknown] indapamide 2.5 mg tablet 2.5 mg PO DAILY blood pressure 11/06/19 [History Last Taken Unknown] metoprolol tartrate 100 mg tablet 100 mg PO BID blood pressure 11/11/19 [History Last Taken 02/05/23] metformin 500 mg tablet 500 mg PO BID glucose ##0 11/13/19 [Rx Last Taken Unknown] valsartan 320 mg tablet 160 mg (1/2 x 320 mg) PO DAILY blood pressure ##0 11/13/19 [Rx Last Taken 02/05/23] vit C 250 mg-vit E 90 mg-zinc 40 mg-copper 1 [id number] capsule (PreserVision AREDS-2) 1 tab PO BID eye health 02/02/23 [History Last Taken 08/17/23] pantoprazole 40 mg tablet,delayed release 40 mg PO DAILY acid reflux #30 tabs 04/06/23 [Rx Last Taken Unknown] acetaminophen 325 mg tablet 650 mg PO Q6H pain/fever 08/17/23 [History Last T aken Unknown] metoprolol tartrate 25 mg tablet 25 mg PO BID blood pressure 08/17/23 [History Last Taken 08/17/23] mirtazapine 7.5 mg tablet 7.5 mg PO QHS sleep 08/17/23 [History Last Taken 08/16/23] piperacillin-tazobactam 3.375 gram/50 mL dextrose(iso-os) IV piggyback (Zosyn) 3.375 g IV Q12H ATB 08/17/23 [History Last Taken 08/17/23] polyethylene glycol 3350 17 gram oral powder packet (Miralax) 17 g PO DAILY bowel mobility 08/17/23 [History Last Taken 08/17/23] prochlorperazine maleate 10 mg tablet (Compazine) 10 mg PO Q6H PRN nausea and vomiting 08/17/23 [History Last Taken Unknown] Allergy/AdvReac Type Severity Reaction Status Date / Time diltiazem [From Cardizem] Allergy Mild HIVES Verified 02/21/23 09:50 minoxidil Allergy Mild TACHYCARDIA Verified 02/21/23 09:50 prazosin [From Minipress] AdvReac Other Verified 02/21/23 09:50 Family History (Updated 08/17/23 @ 15:[address] Codey Licea MD) Brother Melanoma Prostate cancer Brother Liver cancer Mother , at 85. Congestive heart failure Father , at 64. COPD (chronic obstructive pulmonary disease) Surgical History (Updated 08/17/23 @ 15:[address] Codey Licea MD) History of breast biopsy History of endometrial biopsy History of esophageal dilatation History of extraction of renal calculus Social History (Updated 08/17/23 @ 15:[address] Codey Licea MD) household members: spouse Smoking Status: Never smoker alcohol intake: never substance use type: does not use ROS Constitutional Constitutional: Reports fatigue and weakness; Denies chills, fever(s) or weight gain ENT HEENT: Denies headache(s), nasal congestion or nasal discharge Cardiovascular Cardiovascular: Denies chest pain or palpitations Respiratory/Chest Respiratory/Chest: Denies cough, excessive phlegm production or shortness of breath with exertion Gastrointestinal Gastrointestinal: Denies abdominal pain, nausea or vomiting Genitourinary Genitourinary: Denies dysuria Musculoskeletal Musculoskeletal: Denies joint pain or joint swelling Integumentary Integumentary: Denies rash or wounds Neurologic Neurologic: Denies focal weakness, numbness or tingling Psychiatric Psychiatric: Denies anxiety, auditory hallucinations, depression, homicidal ideation or suicidal ideation Vital Signs Vital Signs Vital Signs: 08/17/23 14:30 Temperature 98.1 F Temperature Source Temporal Pulse Rate 81 Respiratory Rate 18 Blood Pressure 148/81 H Blood Pressure Mean 103 Blood Pressure Source Monitor Blood Pressure Position Semi-Fowlers Blood Pressure Location Left Arm Pulse Ox 98 Oxygen Delivery Method Room Air Indicators for Scoring Admitted with or Primary Diagnosis of CVA/Stroke: No Hx of CVA/Stroke: No Modified [place] Score MRS Score at time of Evaluation: 4-Moderate/severe disability Physical Exam Const alert General Appearance: cooperative HEENT normocephalic Eyes PERRL and EOMs intact bilaterally Neck supple, no JVD and no carotid bruits Resp normal respiratory effort, normal air movement and clear to auscultation bilaterally Resp Narrative: Right upper chest port. Cardio regular rate and regular rhythm GI normal to inspection, nondistended, normoactive bowel sounds, non-tender and non-distended Extremity normal capillary refill General Extremity: Negative for edema Skin no rashes or lesions noted General Skin Exam: no breakdown Psych affect normal Appearance: appropriate Assessment & Plan Assessment/Plan (1) Debility: (2) Neutropenic fever: (3) Sepsis: (4) Atrial fibrillation with rapid ventricular response: (5) Esophageal candidiasis: (6) Esophageal stricture: (7) Esophageal diverticulum: (8) Urinary tract infection: (9) E. coli bacteremia: (10) Breast cancer metastasized to axillary lymph node: (11) Gout: (12) Acute kidney injury: (13) Hyperlipidemia: (14) Hypertension: (15) COPD (chronic obstructive pulmonary disease): (16) Diabetes: (17) Bronchiectasis: QUALIFIERS: Bronchiectasis type: uncomplicated Qualified Code(s): J47.9 - Bronchiectasis, uncomplicated (18) Appetite loss: (19) Protein-calorie malnutrition, severe: PLAN: Plan 78 year old female with metastatic breast cancer hospitalized for neutropenic fever secondary to E. Coli bacteremia/urinary tract infection, esophageal candidiasis, complicated by atrial fibrillation with RVR, esophageal stricture, acute kidney injury, severe protein calorie malnutrition requiring TPN, admitted to for 3 hours daily rehabilitation, strengthening, prior to discharge home with . * Debility - PT/OT. * Pain - Tylenol 650mg q6 prn pain (1-10/fever) * Bowel - Miralax 17gm daily, senna/colace 2 tablets bid, Dulcolax 10mg pr x 1 prn, MOM 30ml po x 1 prn. * Gout - Allopurinol 300mg daily. * Diabetes Mellitus II - Lispro SSI. * Atrial fibrillation - Metoprolol 25mg bid, no anticoagulation recommended at this time. * Appetite loss - Mirtazapine 7.5mg qhs. * Macular degeneration - Healthy Eyes 1 cap bid. * Esophagitis - Pantoprazole 40mg twice daily. * E. Coli bacteremia - Zosyn 3.375gm iv q12 thru 08/21/2023. * Nausea - Compazine 10mg q6 prn.
[2023-08-17 16:57] LABS: Bedside Glucose 116 mg/dL (74-106)
[2023-08-17 17:45] VITALS: O2SAT 96
[2023-08-17 21:30] VITALS: BP 155/84; PULSE 91; RESP 20; TEMP 37.6; O2SAT 96
[2023-08-17] MEDS: Piperacil/Tazobactam 3.375 GM in 0.9% Normal Saline (50mL MB+) 50 ML IV (21:33)
[2023-08-17] MEDS: 0.9 % NaCl (Sterile) Posiflush 10 mL IV (21:40)
[2023-08-17] MEDS: Pantoprazole Sodium 40 MG Tablet PO (21:41)
[2023-08-17] MEDS: Multivitamin (Healthy Eyes) Capsule 1 CAP PO (21:42)
[2023-08-17] MEDS: Mirtazapine 15 MG Tablet 7.5 MG PO (21:42)
[2023-08-17 21:43] VITALS: BP 155/84; PULSE 90
[2023-08-17] MEDS: Metoprolol Tartrate 25 MG Tablet PO (21:43)
[2023-08-17 22:29] LABS: Bedside Glucose 128 mg/dL (74-106)
[2023-08-18 07:12] LABS: Bedside Glucose 106 mg/dL (74-106)
[2023-08-18 07:45] VITALS: BP 162/82; PULSE 80; RESP 18; TEMP 36.6; O2SAT 97
[2023-08-18 08:10] VITALS: O2SAT 97
[2023-08-18 10:12] VITALS: BP 162/82; PULSE 80
[2023-08-18 10:12] LABS: ALB/GLOB Ratio 0.5 RATIO (0.9-2.4); AST(SGOT) 17 U/L (15-37); Alanine Aminotransfer ALT/SGPT 21 U/L (13-56); Albumin, Serum 1.9 g/dL (3.2-5.0); Alkaline Phosphatase 78 U/L (45-117); Anion Gap 8 (5-15); BUN 21 mg/dL (7-18); BUN/Creat Ratio 21.9 RATIO (10-20); Calcium,Total 8.6 mg/dL (8.5-10.1); Chloride 107 mmol/L (98-107); Creatinine, Serum 0.96 mg/dL (0.55-1.02); EST Glomerular Filtration Rate 60 mL/min (>60); Est Glom Filt Rate - Afr Amer 72 mL/min (>60); Estimated Creatinine Clearance 37.03 ml/min; Globulin 3.7 g/dL (2.2-4.2); Glucose 206 mg/dL (74-106); Magnesium 1.6 mg/dL (1.6-2.6); Potassium 3.4 mmol/L (3.5-5.1); Protein, Total 5.6 g/dL (6.4-8.2); Sodium Level 140 mmol/L (136-145)
[2023-08-18] MEDS: Metoprolol Tartrate 25 MG Tablet PO ×2 (10:12→21:16)
[2023-08-18] MEDS: Multivitamin (Healthy Eyes) Capsule 1 CAP PO ×2 (10:13→21:17)
[2023-08-18] MEDS: Pantoprazole Sodium 40 MG Tablet PO ×2 (10:13→21:17)
[2023-08-18] MEDS: Allopurinol 300 MG Tablet PO (10:13)
[2023-08-18] MEDS: Piperacil/Tazobactam 3.375 GM in 0.9% Normal Saline (50mL MB+) 50 ML IV ×2 (10:16→22:06)
[2023-08-18] MEDS: 0.9% Saline Lock 10 ML Syringe IV (10:17)
--- NOTE | 2023-08-18 10:46 | REHABEVAL_ITS ---
Admission Information Primary Diagnosis:: Neutropenic, E. Coli bacteremia, urinary tract infection, esophageal candidiasis, atrial fibrillation with RVR, esophageal stricture, acute kidney injury, severe protein calorie malnutrition. Status Changes from Prescreening?: No changes Identified Actual Problem List:: Infection, UTI, Pain, ALteration in Cmfrt, Alteration in Nutrition, Mobility Impaired, Self Care Deficit, Know.Dfct/Disease Process and Alteration-Leisure Activ. Potential Problem List:: DVT, Bleeding, Infection, UTI, Aspiration, Falls, Skin Integrity and Depression Risk of Complications DVT: GRAY Patino Bleeding: Monitor Lab Values, Nursing to Teach Precautions for anti-coagulation therapy., Wound, if applicable, to be assessed every shift. and Stroke patients assessed for lethargy or change in status. Infection: Clinical Staff to Monitor for S/S of infection: and S/S of infection include fever, redness, warmth, etc. Urinary Tract Infection: Monitor for frequency, burning, discomfort, or incontinence. and Nursing will obtain urine sample for urinalysis and C&S when ordered. Aspiration: Clinical staff will monitor for coughing, drooling, congestion., Speech will evaluate swallowing and dsyphasia. and Nursing will monitor patient swallowing during meals. Falls: Patient will be evaluated for Fall Precautions and Patient will be placed on Fall Precautions as indicated per protocol. Skin Breakdown: Nursing will assess skin daily using assessment tool. and Nursi ng will place on Skin Breakdown Precautions as indicated. Pain: Clinical staff will assess patient's pain level per protocol., Medications will be given, if needed, and the pain level reassessed. and Other methods: Massage, distraction, decrease stimulus, etc. used PRN. Plan of Care Patient requires physician specializing in physical medicine and rehab oversight to provide close medical supervision of rehab issues including: Pain Management, Sleep Problems, Bowel and Bladder, Medical and co-morbidity Management, DVT prop hylaxis, Rehabilitation Leadership and Coordination of treatment team Patient needs Physical Therapy: At least 5 out of 7 days and For a minimum of 1.5 hrs Patient needs Physical Therapy to improve:: Mobility, Strengthening, Transfers, Stretching, ROM, Endurance, Stairs, Gait and Balance Patient needs Occupational Therapy: At least 5 out of 7 days and For a minimum of 1.5 hrs Patient needs Occupational Therapy to improve ADL's incl.: Eating, Grooming, Bathing, Dressing, Toileting, Toilet transfers, Community Reintegration, Higher functioning activities, Household tasks, Adaptive Equipment, Splinting and Other activities as determined Patient requires 24/7 Rehabilitation Nursing for: Pain Issues, Identifying and preventing risk factors, Monitoring and reporting current medical conditions, Assisting with ambulation, transfer, and all ADL's, Teaching patients about disease process and medications, Family teaching, Providing safe environment, Bowel and Bladder Issues, Skin integrity and Medication Management Patient needs Service Manager/ Case Management for: Discharge Planning, Arranging Home Equipment or Services and Family Interventions Patient needs Dietary and Nutrition Services for: Adequate Nutrition, Nutritio nal Supplements and Nutritional Education Goals Patient will remain: free from falls and or injury at time of discharge. Patient will perform bed mobility at: - (I.) Patient will complete transfers from bed to chair at: - (I, no LOB.) Patient will ambulate: - (200 feet with FWW or rollator with supervision to MOD I without LOB.) Patient will complete toileting at: MOD I level of assist. Patient will achieve: - (3 steps SBA to Sup.) Patient will have pain level of: of 3 or less Patient's skin will: remain intact and free from infection. Patient will receive: adequate nutrition. Discharge Planning Pt Prognosis for Sig. Practical Improv. w/in Reasonable Time: Good Estimated Length of stay (days): 14 Anticipated D/C Destination: Home with Outpt Therapy Was Preadmission Assessment Accurate?: Yes
[2023-08-18] MEDS: Potassium Chloride Oral Soln 20 MEQ/15 ML UDC PO (13:09)
[2023-08-18 14:07] LABS: Bedside Glucose 143 mg/dL (74-106)
[2023-08-18 16:45] LABS: Bedside Glucose 103 mg/dL (74-106)
[2023-08-18 21:00] VITALS: BP 132/75; PULSE 81; RESP 16; TEMP 36.7; O2SAT 97
[2023-08-18 21:16] VITALS: BP 132/75; PULSE 81
[2023-08-18] MEDS: Mirtazapine 15 MG Tablet 7.5 MG PO (21:17)
[2023-08-18] MEDS: Insulin Lispro 100 UNIT/ML INSULN.PEN SC (21:18)
[2023-08-18] MEDS: Ensure Clear 120 ML Liquid PO (21:24)
[2023-08-18 21:28] LABS: Bedside Glucose 164 mg/dL (74-106)
[2023-08-18] MEDS: 0.9 % NaCl (Sterile) Posiflush 10 mL IV (22:06)
[2023-08-19 06:48] LABS: Bedside Glucose 111 mg/dL (74-106)
[2023-08-19 08:16] VITALS: O2SAT 97
[2023-08-19] MEDS: Multivitamin (Healthy Eyes) Capsule 1 CAP PO ×2 (08:22→21:34)
[2023-08-19] MEDS: Allopurinol 300 MG Tablet PO (08:22)
[2023-08-19 09:02] VITALS: BP 152/80; PULSE 60; RESP 18; TEMP 36; O2SAT 97
[2023-08-19] MEDS: 0.9 % NaCl (Sterile) Posiflush 10 mL IV (09:11)
[2023-08-19 10:34] VITALS: BP 152/80; PULSE 60
[2023-08-19] MEDS: Metoprolol Tartrate 25 MG Tablet PO ×2 (10:34→21:34)
[2023-08-19] MEDS: Pantoprazole Sodium 40 MG Tablet PO ×2 (10:34→21:34)
[2023-08-19] MEDS: Potassium Chloride Oral Soln 20 MEQ/15 ML UDC PO (10:34)
[2023-08-19] MEDS: 0.9% Saline Lock 10 ML Syringe IV (10:34)
[2023-08-19] MEDS: Piperacil/Tazobactam 3.375 GM in 0.9% Normal Saline (50mL MB+) 50 ML IV ×2 (10:57→21:57)
[2023-08-19 12:42] LABS: Bedside Glucose 123 mg/dL (74-106)
[2023-08-19 16:47] LABS: Bedside Glucose 105 mg/dL (74-106)
[2023-08-19] MEDS: Ensure Clear 120 ML Liquid PO ×2 (17:28→21:40)
[2023-08-19 21:30] VITALS: BP 151/74; PULSE 85; RESP 14; TEMP 37.2; O2SAT 96
[2023-08-19] MEDS: Petrolatum 33% Tube 1 APPLIC TOPICAL (21:33)
[2023-08-19 21:34] VITALS: BP 151/74; PULSE 85
[2023-08-19] MEDS: Insulin Lispro 100 UNIT/ML INSULN.PEN SC (21:38)
[2023-08-19 21:44] LABS: Bedside Glucose 169 mg/dL (74-106)
[2023-08-19] MEDS: Mirtazapine 15 MG Tablet 7.5 MG PO (21:44)
[2023-08-20 06:14] LABS: Anion Gap 5 (5-15); BUN 14 mg/dL (7-18); BUN/Creat Ratio 17.2 RATIO (10-20); Calcium,Total 8.4 mg/dL (8.5-10.1); Chloride 109 mmol/L (98-107); Creatinine, Serum 0.81 mg/dL (0.55-1.02); EST Glomerular Filtration Rate 72 mL/min (>60); Est Glom Filt Rate - Afr Amer 88 mL/min (>60); Estimated Creatinine Clearance 43.89 ml/min; Glucose 103 mg/dL (74-106); Potassium 3.9 mmol/L (3.5-5.1); Sodium Level 144 mmol/L (136-145)
[2023-08-20 06:27] LABS: Bedside Glucose 107 mg/dL (74-106)
--- NOTE | 2023-08-20 07:38 | PN.REHAB_ITS ---
Subjective Subjective Patient seen, examined. She feels she is making progress with therapy. She has no new complaints. Objective Data Objective Data Vital Signs: Vital Signs Temp Pulse Resp BP Pulse Ox O2 Del Method O2 Flow Rate 98.9 F 85 14 151/74 H 96 Room Air 91 08/19/23 21:30 08/19/23 21:34 08/19/23 21:30 08/19/23 21:34 08/19/23 21:30 08/19/23 21:30 08/17/23 21:30 Oxygen Flow Rate (L/min) 91 Oxygen Delivery Method Room Air Weight: 48.9 kg Body Mass Index (BMI) 20.0 Intake & Output: Intake and Output for Last 24 Hours 08/18/23 08/19/23 08/20/23 23:59 23:59 23:59 Intake Total 440 / 560 1640 / 1640 50 / 50 Output Total 250 / 250 550 / 550 350 / 350 Balance 190 / 310 1090 / 1090 -300 / -300 Medical Nutrition Assessment Dietitian: Malnutrition Criteria Met Start: 08/17/23 17:28 Freq: Status: Active Protocol: Document 08/17/23 17:28 LYRIC (Rec: 08/17/23 17:28 LYRIC [id number]) Nutrition Malnutrition Evidence of Malnutrition Exists Yes Malnutrition (severe): Chronic Evidenced By Suboptimal Energy Intake ( Severe),Weight Loss (Severe) Clinical Problem Chronic Disease or Condition Related Malnutrition Etiology related to swallowing impairment making it difficult to have adequate energy intake Signs/Symptoms as evidenced by pt meeting <75 % of estimated nutritional needs and 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 Lab / Micro Data Attestation: I reviewed the patient's lab results. 08/20/23 05:13 Labs: Laboratory Results - last 24 hr 08/19/23 12:23: POC Glucose 123 H 08/19/23 16:29: POC Glucose 105 08/19/23 21:25: POC Glucose 169 H 08/20/23 05:13: Sodium 144, Potassium 3.9, Chloride 109 H, Carbon Dioxide 30.0, Anion Gap 5, BUN 14, Creatinine 0.81, Estim Creat Clear Calc 43.89, Est GFR (MDRD) Af Amer 88, Est GFR (MDRD) Non-Af 72, BUN/Creatinine Ratio 17.2, Glucose 103, Calcium 8.4 L 08/20/23 06:09: POC Glucose 107 H Indicators for Scoring Admitted with or Primary Diagnosis of CVA/Stroke: No Hx of CVA/Stroke: No Modified Federico Score MRS Score at time of Evaluation: 4-Moderate/severe disability Physical Exam Const alert General Appearance: cooperative HEENT normocephalic Eyes PERRL and EOMs intact bilaterally Neck supple, no JVD and no carotid bruits Resp normal respiratory effort, normal air movement and clear to auscultation bilaterally Resp Narrative: Right upper chest port. Cardio regular rate and regular rhythm GI normal to inspection, nondistended, normoactive bowel sounds, non-tender and non-distended Extremity normal capillary refill General Extremity: Negative for edema Skin no rashes or lesions noted General Skin Exam: no breakdown Psych affect normal Appearance: appropriate Assessment & Plan Assessment/Plan (1) Debility: (2) Neutropenic fever: (3) Sepsis: (4) Atrial fibrillation with rapid ventricular response: (5) Esophageal candidiasis: (6) Esophageal stricture: (7) Esophageal diverticulum: (8) Urinary tract infection: (9) E. coli bacteremia: (10) Breast cancer metastasized to axillary lymph node: (11) Gout: (12) Acute kidney injury: (13) Hyperlipidemia: (14) Hypertension: (15) COPD (chronic obstructive pulmonary disease): (16) Diabetes: (17) Bronchiectasis: QUALIFIERS: Bronchiectasis type: uncomplicated Qualified Code(s): J47.9 - Bronchiectasis, uncomplicated (18) Appetite loss: (19) Protein-calorie malnutrition, severe: PLAN: Plan 78 year old female with metastatic breast cancer hospitalized for neutropenic fever secondary to E. Coli bacteremia/urinary tract infection, esophageal candidiasis, complicated by atrial fibrillation with RVR, esophageal stricture, acute kidney injury, severe protein calorie malnutrition requiring TPN, admitted to for 3 hours daily rehabilitation, strengthening, prior to discharge home with . * Debility - PT/OT. * Pain - Tylenol 650mg q6 prn pain (1-10/fever) * Bowel - Miralax 17gm daily, senna/colace 2 tablets bid, Dulcolax 10mg pr x 1 prn, MOM 30ml po x 1 prn. * Gout - Allopurinol 300mg daily. * Diabetes Mellitus II - Lispro SSI. * Atrial fibrillation - Metoprolol 25mg bid, no anticoagulation recommended at this time. * Appetite loss - Mirtazapine 7.5mg qhs. * Macular degeneration - Healthy Eyes 1 cap bid. * Esophagitis - Pantoprazole 40mg twice daily. * E. Coli bacteremia - Zosyn 3.375gm iv q12 thru 08/21/2023. * Nausea - Compazine 10mg q6 prn. Capacity Capacity Assessment Tool Can the patient make a choice & communicate that choice?: Yes Can the patient understand benefits, risks and alternatives?: Yes Can the patient make a logical, rational choice?: Yes Is the choice the patient makes consistent w/ their values?: Yes Is there an impending, emergent risk to the patient?: No Does the patient have an Advance Directive?: No Is there a Surrogate Available?: Yes i.e. HCPOA: Yes i.e. close relative (spouse, child, parent, sibling)?: Yes
[2023-08-20 08:01] VITALS: BP 169/85; PULSE 79; RESP 17; TEMP 36.2; O2SAT 94
[2023-08-20 09:13] VITALS: PULSE 79
[2023-08-20] MEDS: Pantoprazole Sodium 40 MG Tablet PO ×2 (09:13→20:32)
[2023-08-20] MEDS: Metoprolol Tartrate 25 MG Tablet PO ×2 (09:13→20:27)
[2023-08-20] MEDS: Allopurinol 300 MG Tablet PO (09:13)
[2023-08-20] MEDS: Multivitamin (Healthy Eyes) Capsule 1 CAP PO ×2 (09:13→20:26)
[2023-08-20] MEDS: Potassium Chloride Oral Soln 20 MEQ/15 ML UDC PO (09:14)
[2023-08-20] MEDS: Ensure Clear 120 ML Liquid PO ×2 (09:14→20:26)
[2023-08-20] MEDS: Losartan Potassium 100 MG Tablet PO (09:42)
[2023-08-20] MEDS: Piperacil/Tazobactam 3.375 GM in 0.9% Normal Saline (50mL MB+) 50 ML IV ×3 (09:42→21:27)
[2023-08-20 12:05] LABS: Bedside Glucose 102 mg/dL (74-106)
[2023-08-20] MEDS: 0.9% Saline Lock 10 ML Syringe IV (14:04)
[2023-08-20 16:27] LABS: Bedside Glucose 100 mg/dL (74-106)
[2023-08-20 19:50] VITALS: BP 140/72; PULSE 69; PULSE 78; RESP 20; TEMP 36.8; O2SAT 96
[2023-08-20] MEDS: Mirtazapine 15 MG Tablet 7.5 MG PO (20:25)
[2023-08-20 20:27] VITALS: BP 140/72; PULSE 69
[2023-08-20 20:58] LABS: Bedside Glucose 146 mg/dL (74-106)
[2023-08-20] MEDS: 0.9 % NaCl (Sterile) Posiflush 10 mL IV (21:27)
[2023-08-21] MEDS: 0.9 % NaCl (Sterile) Posiflush 10 mL IV ×3 (06:54→20:42)
[2023-08-21] MEDS: Piperacil/Tazobactam 3.375 GM in 0.9% Normal Saline (50mL MB+) 50 ML IV ×3 (06:54→20:23)
[2023-08-21 07:06] LABS: Bedside Glucose 116 mg/dL (74-106)
[2023-08-21 07:50] VITALS: BP 152/78; PULSE 80; RESP 15; TEMP 36.3; O2SAT 95
[2023-08-21] MEDS: Ensure Clear 120 ML Liquid PO ×3 (08:20→20:14)
[2023-08-21 08:21] VITALS: BP 152/78; PULSE 80
[2023-08-21] MEDS: Potassium Chloride Oral Soln 20 MEQ/15 ML UDC PO (08:21)
[2023-08-21] MEDS: Metoprolol Tartrate 25 MG Tablet PO ×2 (08:21→20:20)
[2023-08-21] MEDS: Allopurinol 300 MG Tablet PO (08:21)
[2023-08-21] MEDS: Pantoprazole Sodium 40 MG Tablet PO ×2 (08:21→20:21)
[2023-08-21] MEDS: Losartan Potassium 100 MG Tablet PO (08:25)
[2023-08-21] MEDS: Multivitamin (Healthy Eyes) Capsule 1 CAP PO ×2 (08:26→20:15)
--- NOTE | 2023-08-21 08:45 | PN.REHAB_ITS ---
Subjective Subjective Patient seen, examined. She finished her breakfast. Zosyn infusing via right chest port. I discussed her rising blood pressure with her. Patient states prior to diagnosis of breast cancer this summer, she had high blood pressure which was difficult to control, but once she started chemotherapy, her blood pressure dropped and her family doctor had to back off on many of her blood pressure medications, and now she is off chemotherapy, she is not surprised her blood pressure rising. She is doing very well with therapy. Objective Data Objective Data Vital Signs: Vital Signs Temp Pulse Resp BP Pulse Ox O2 Del Method O2 Flow Rate 97.3 F L 80 15 152/78 H 95 Room Air 91 08/21/23 07:50 08/21/23 08:21 08/21/23 07:50 08/21/23 08:21 08/21/23 07:50 08/21/23 07:50 08/17/23 21:30 Oxygen Flow Rate (L/min) 91 Oxygen Delivery Method Room Air Weight: 48.9 kg Body Mass Index (BMI) 20.0 Intake & Output: Intake and Output for Last 24 Hours 08/19/23 08/20/23 08/21/23 23:59 23:59 23:59 Intake Total 1640 / 1640 1350 / 1350 150 / 150 Output Total 550 / 550 450 / 450 Balance 1090 / 1090 900 / 900 150 / 150 Medical Nutrition Assessment Dietitian: Malnutrition Criteria Met Start: 08/17/23 17:28 Freq: Status: Active Protocol: Document 08/17/23 17:28 LYRIC (Rec: 08/17/23 17:28 LYRIC [id number]) Nutrition Malnutrition Evidence of Malnutrition Exists Yes Malnutrition (severe): Chronic Evidenced By Suboptimal Energy Intake ( Severe),Weight Loss (Severe) Clinical Problem Chronic Disease or Condition Related Malnutrition Etiology related to swallowing impairment making it difficult to have adequate energy intake Signs/Symptoms as evidenced by pt meeting <75 % of estimated nutritional needs and 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 Lab / Micro Data Attestation: I reviewed the patient's lab results. 08/20/23 05:13 Labs: Laboratory Results - last 24 hr 08/20/23 11:47: POC Glucose 102 08/20/23 16:10: POC Glucose 100 08/20/23 20:22: POC Glucose 146 H 08/21/23 06:36: POC Glucose 116 H Indicators for Scoring Admitted with or Primary Diagnosis of CVA/Stroke: No Hx of CVA/Stroke: No Modified Federico Score MRS Score at time of Evaluation: 4-Moderate/severe disability Physical Exam Const alert General Appearance: cooperative HEENT normocephalic Eyes PERRL and EOMs intact bilaterally Neck supple, no JVD and no carotid bruits Resp normal respiratory effort, normal air movement and clear to auscultation bilaterally Resp Narrative: Right upper chest port. Cardio regular rate and regular rhythm GI normal to inspection, nondistended, normoactive bowel sounds, non-tender and non-distended Extremity normal capillary refill General Extremity: Negative for edema Skin no rashes or lesions noted General Skin Exam: no breakdown Psych affect normal Appearance: appropriate Assessment & Plan Assessment/Plan (1) Debility: (2) Neutropenic fever: (3) Sepsis: (4) Atrial fibrillation with rapid ventricular response: (5) Esophageal candidiasis: (6) Esophageal stricture: (7) Esophageal diverticulum: (8) Urinary tract infection: (9) E. coli bacteremia: (10) Breast cancer metastasized to axillary lymph node: (11) Gout: (12) Acute kidney injury: (13) Hyperlipidemia: (14) Hypertension: (15) COPD (chronic obstructive pulmonary disease): (16) Diabetes: (17) Bronchiectasis: QUALIFIERS: Bronchiectasis type: uncomplicated Qualified Code(s): J47.9 - Bronchiectasis, uncomplicated (18) Appetite loss: (19) Protein-calorie malnutrition, severe: PLAN: Plan 78 year old female with metastatic breast cancer hospitalized for neutropenic fever secondary to E. Coli bacteremia/urinary tract infection, esophageal cand idiasis, complicated by atrial fibrillation with RVR, esophageal stricture, acute kidney injury, severe protein calorie malnutrition requiring TPN, admitted to for 3 hours daily rehabilitation, strengthening, prior to discharge home with . * Debility - PT/OT. * Pain - Tylenol 650mg q6 prn pain (1-10/fever) * Bowel - Miralax 17gm daily, senna/colace 2 tablets bid, Dulcolax 10mg pr x 1 prn, MOM 30ml po x 1 prn. * Gout - Allopurinol 300mg daily. * Diabetes Mellitus II - Lispro SSI. * Atrial fibrillation - Metoprolol 25mg bid, no anticoagulation recommended at this time. * Appetite loss - Mirtazapine 7.5mg qhs. * Macular degeneration - Healthy Eyes 1 cap bid. * Esophagitis - Pantoprazole 40mg twice daily. * E. Coli bacteremia - Zosyn 3.375gm iv q12 thru 08/21/2023. * Nausea - Compazine 10mg q6 prn. * Hypertension - Metoprolol 25mg bid, Losartan 100mg added yesterday (Prior b lood pressure meds: Metoprolol 100mg bid, Valsartan 320mg daily, Clonidine 0.2mg bid, Indapamide 2.5mg daily ) Will restart and titrate blood pressure medications as she recovers from last chemotherapy.
[2023-08-21] MEDS: 0.9% Normal Saline (250mL Bag) 250 ML 15 ML IV (14:24)
[2023-08-21 20:20] VITALS: BP 146/82; PULSE 88
[2023-08-21] MEDS: Mirtazapine 15 MG Tablet 7.5 MG PO (20:20)
[2023-08-21 20:22] VITALS: BP 119/77; PULSE 83; RESP 16; TEMP 37.2; O2SAT 96
[2023-08-21] MEDS: Insulin Lispro 100 UNIT/ML INSULN.PEN SC (20:28)
[2023-08-21 21:07] LABS: Bedside Glucose 166 mg/dL (74-106)
[2023-08-22 06:22] LABS: Bedside Glucose 101 mg/dL (74-106)
[2023-08-22] MEDS: Potassium Chloride Oral Soln 20 MEQ/15 ML UDC PO (08:06)
[2023-08-22 08:07] VITALS: BP 137/64; PULSE 77
[2023-08-22] MEDS: Metoprolol Tartrate 25 MG Tablet PO ×2 (08:07→20:57)
[2023-08-22] MEDS: Pantoprazole Sodium 40 MG Tablet PO ×2 (08:07→20:57)
[2023-08-22] MEDS: Multivitamin (Healthy Eyes) Capsule 1 CAP PO ×2 (08:07→20:57)
[2023-08-22] MEDS: Allopurinol 300 MG Tablet PO (08:07)
[2023-08-22] MEDS: Losartan Potassium 100 MG Tablet PO (08:07)
[2023-08-22] MEDS: Ensure Clear 120 ML Liquid PO ×3 (08:11→20:57)
[2023-08-22 08:59] VITALS: BP 137/64; PULSE 77; RESP 16; TEMP 37.1; O2SAT 94
--- NOTE | 2023-08-22 16:27 | CASEMGMT ---
SOCIAL WORK: Met with pt to complete initial assessment. Introduced self and role. Verified and updated contacts.Patient confirmed full code. Educated to Medicare benefit and co-pay coverage. Pt's goal is to return home with spouse. SW to continue to follow for DC planning. JONNIE Nugent
[2023-08-22 19:17] VITALS: BP 119/74; PULSE 81; RESP 16; TEMP 37.2; O2SAT 95
[2023-08-22 20:57] VITALS: PULSE 81
[2023-08-22] MEDS: Mirtazapine 15 MG Tablet 7.5 MG PO (20:57)
[2023-08-22] MEDS: 0.9 % NaCl (Sterile) Posiflush 10 mL IV (21:04)
[2023-08-22 21:34] LABS: Bedside Glucose 137 mg/dL (74-106)
[2023-08-23 05:42] LABS: Bedside Glucose 91 mg/dL (74-106)
[2023-08-23 08:04] VITALS: PULSE 75
[2023-08-23] MEDS: Pantoprazole Sodium 40 MG Tablet PO ×2 (08:04→21:17)
[2023-08-23] MEDS: Multivitamin (Healthy Eyes) Capsule 1 CAP PO ×2 (08:04→21:17)
[2023-08-23] MEDS: Losartan Potassium 100 MG Tablet PO (08:04)
[2023-08-23] MEDS: Metoprolol Tartrate 25 MG Tablet PO ×2 (08:04→21:17)
[2023-08-23] MEDS: Allopurinol 300 MG Tablet PO (08:04)
[2023-08-23] MEDS: Potassium Chloride Oral Soln 20 MEQ/15 ML UDC PO (08:05)
[2023-08-23] MEDS: Ensure Clear 120 ML Liquid PO ×4 (08:06→21:16)
--- NOTE | 2023-08-23 08:43 | CASEMGMT ---
Addendum entered by Latanya Casas 08/23/23 12:54: Dtr presented to this worker's office and requesting change of DC to 08/25. IDT agreeable. IDT updated. [facility] and [facility] updated. Plan DC home with 08/25, [facility] Original Note: Social Work IDT met with patient, and dtr for Team meeting. Discussed patient's progress in PT/OT/SN. Educated to Medicare approval of 10 days with [facility] 08/27. Pt is progressing well and IDT has no concerns with pt returning home. Recommending OP PT. Pt will need a cane. SW to refer to [facility] and to lemon picker at time of DC. Offered to set DC for 08/26 Family agreeable to DC 08/26 with [facility]. Family to transport. Plan: DC home with 08/27, [facility], [employer]
[2023-08-23 09:43] VITALS: BP 147/65; PULSE 75; RESP 14; TEMP 37; O2SAT 95
--- NOTE | 2023-08-23 10:21 | EX.PCM.PN.RE ---
Subjective Subjective Patient was admitted for daily rehab following a hospital stay for neutropenic fever and metastatic breast cancer. She was seen today on TEAM rounds. No events overnight. Therapy reports that she has been doing very well. She is at a set up supervision and is able to dress herself. She is currently working on higher level care such as cooking and cleaning. She has been using a cane and walking over 700 feet. She was able to walk a flight of stairs. Her blood pressure has been mostly controlled. Discharge is planned for 08/26 with outpatient therapy. She is eating well and moving her bowels. She denies any pain currently. She has no questions or concerns today. Objective Data Objective Data Vital Signs: Vital Signs Temp Pulse Resp BP Pulse Ox O2 Del Method O2 Flow Rate 98.6 F 75 14 147/65 H 95 Room Air 91 08/23/23 09:43 08/23/23 09:43 08/23/23 09:43 08/23/23 09:43 08/23/23 09:43 08/23/23 09:43 08/17/23 21:30 Oxygen Flow Rate (L/min) 91 Oxygen Delivery Method Room Air Weight: 107 lb 12.897 oz Body Mass Index (BMI) 20.0 Intake & Output: Intake and Output for Last 24 Hours 08/21/23 08/22/23 08/23/23 23:59 23:59 23:59 Intake Total 1250 / 1250 2049 / 2049 200 / 200 Balance 1250 / 1250 2049 200 / 200 Medical Nutrition Assessment Dietitian: Malnutrition Criteria Met Start: 08/17/23 17:28 Freq: Status: Active Protocol: Document 08/17/23 17:28 LYRIC (Rec: 08/17/23 17:28 LYRIC [id number]) Nutrition Malnutrition Evidence of Malnutrition Exists Yes Malnutrition (severe): Chronic Evidenced By Suboptimal Energy Intake ( Severe),Weight Loss (Severe) Clinical Problem Chronic Disease or Condition Related Malnutrition Etiology related to swallowing impairment making it difficult to have adequate energy intake Signs/Symptoms as evidenced by pt meeting <75 % of estimated nutritional needs and 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 Lab / Micro Data Attestation: I reviewed the patient's lab results. 08/20/23 05:13 Labs: Laboratory Results - last 24 hr 08/22/23 21:00: POC Glucose 137 H 08/23/23 05:21: POC Glucose 91 Indicators for Scoring Admitted with or Primary Diagnosis of CVA/Stroke: No Hx of CVA/Stroke: No Modified [place] Score MRS Score at time of Evaluation: 4-Moderate/severe disability Physical Exam Const alert, oriented x3, no apparent distress and well nourished Constitutional Narrative: laying in bed General Appearance: cooperative and comfortable; Negative for in distress, ill appearing or diaphoretic Orientation / Consciousness: awake, oriented to person, oriented to place and oriented to time Exam Limitations: Negative for altered mental status HEENT normocephalic and head/scalp atraumatic Head and Scalp: normocephalic and atraumatic Face and Sinus: normal facial exam Eyes General Eye: normal appearance of both eyes Chest inspection of chest normal Chest: symmetrical chest wall rise Resp normal respiratory effort, normal air movement, no use of accessory muscles and clear to auscultation bilaterally Effort and Inspection: able to speak in complete sentences and symmetric chest movement; Negative for respiratory distress or audible wheezes Auscultation: clear to auscultation bilaterally Cardio regular rate, regular rhythm and no murmurs Rate: regular rate Rhythm: regular rhythm Heart Sounds: Negative for murmur GI normal to inspection, nondistended, normoactive bowel sounds, soft to palpation, non-tender and non-distended Auscultation: normoactive bowel sounds Palpation: soft; Negative for tender or guarding Extremity normal to inspection General Extremity: Negative for edema Skin no rashes or lesions noted General Skin Exam: no breakdown Lesions: no lesions Rashes: no rashes Neuro oriented x3 Sensorium / Orientation: awake, alert, oriented to person, oriented to place and oriented to time Speech: speech normal Psych mental status grossly normal, cooperative, affect normal and speech normal Appearance: grossly normal Attitude: calm Assessment & Plan Assessment/Plan (1) Debility: PLAN: Will continue with PT/OT and follow up on findings and recommendations. Plan for discharge home with and outpatient therapy, on 08/26. Continue with PRN pain management, bowel regimen and fall precautions. (2) Neutropenic fever: PLAN: Resolved. Patient has completed treatment with antibiotics on 08/21. (3) Urinary tract infection: QUALIFIERS: Hematuria presence: without hematuria Urinary tract infection type: acute cystitis Qualified Code(s): N30.00 - Acute cystitis without hematuria PLAN: As above. (4) E. coli bacteremia: PLAN: As above. (5) Breast cancer metastasized to axillary lymph node: QUALIFIERS: Laterality: unspecified laterality Qualified Code(s): C50.919 - Malignant neoplasm of unspecified site of unspecified female breast; C77.3 - Secondary and unspecified malignant neoplasm of axilla and upper limb lymph nodes PLAN: Patient will need to follow up with oncology upon discharge from inpatient rehab. (6) Hypertension: QUALIFIERS: Hypertension type: primary hypertension Qualified Code(s): I10 - Essential (primary) hypertension PLAN: Blood pressure has been fluctuating, but overall shows fair control. Will continue current management for now and monitor. If it starts to run high, will consider re-introducing some of her previous home medications. 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 Continue with glucose checks. She is not on any medications at home. Glucose level was 91 this morning. Patient has not been on home medications for her diabetes recently. (8) Protein-calorie malnutrition, severe: PLAN: Continue with supplement shakes along with diet. Remeron ordered to help stimulate appetite. She does feel that she has been eating well during her admission. (9) GERD (gastroesophageal reflux disease): QUALIFIERS: Esophagitis bleeding: without hemorrhage Esophagitis presence: with esophagitis Qualified Code(s): K21.00 - Gastro-esophageal reflux disease with esophagitis, without bleeding PLAN: Patient is s/p dilation. Continue with PPI therapy and follow up with GI upon discharge from inpatient rehab. (10) Atrial fibrillation with rapid ventricular response: PLAN: Resolved. Patient is currently in sinus rhythm. This was a new diagnosis during her hospital stay. Continue with metoprolol and monitor. She may benefit from a follow up with cardiology upon discharge from inpatient rehab. Charges/Coding Visit Charges Inpatient E&M: 08306 Subs Hosp L2
[2023-08-23 16:41] LABS: Bedside Glucose 134 mg/dL (74-106)
[2023-08-23 21:17] VITALS: BP 151/85; PULSE 80
[2023-08-23] MEDS: Mirtazapine 15 MG Tablet 7.5 MG PO (21:17)
[2023-08-23 21:22] VITALS: BP 151/85; PULSE 82; RESP 16; TEMP 36.4; O2SAT 96
[2023-08-23] MEDS: Insulin Lispro 100 UNIT/ML INSULN.PEN SC (21:42)
[2023-08-23 22:00] VITALS: PULSE 82; RESP 16; O2SAT 96
[2023-08-23 22:53] LABS: Bedside Glucose 153 mg/dL (74-106)
[2023-08-24 06:00] VITALS: BMI 19.1
[2023-08-24 06:40] LABS: Bedside Glucose 114 mg/dL (74-106)
[2023-08-24 07:04] LABS: Absolute Lymphocyte Count 0.89 X10^3/uL (0.83-4.51); Basophil% 1.5 % (0-1); Eosinophil# 0.68 X10^3/uL; Eosinophils% 10.1 % (0-5); Hematocrit 25.9 % (37-47); Hemoglobin 8.2 g/dL (12.0-15.0); Lymphocyte # 0.89 X10^3/ul (0.83-4.51); Lymphocyte % 13.2 % (19-41); Mean Corp Hgb Conc 31.7 g/dL (32-36); Mean Corpuscular Hgb 31.2 pg (27.0-32.0); Mean Corpuscular Volume 98.5 fL (81-99); Mean Platelet Vol. 9.8 fl (6.2-12.0); Monocyte# 1.04 X10^3/uL; Monocyte% 15.5 % (0-10); NRBC Flagged by Analyzer 0 % (0-5); Neutrophil # 3.96 X10^3/uL (2.7-7.7); Neutrophil % 58.8 % (47-70); POSITIVE MORPHOLOGY YES; Platelet Count 264 K/mm3 (150-450); RBC Distribution Width CV 21.4 % (11.6-14.6); RBC Distribution Width SD 76.4 fl (35.1-43.9); Red Blood Count 2.63 M/mm3 (4.2-5.4); White Blood Count 6.7 K/mm3 (4.4-11.0)
[2023-08-24 07:10] VITALS: BP 158/67; PULSE 80; RESP 16; TEMP 37.6; O2SAT 96
[2023-08-24 07:18] LABS: Differential Indicated SCAN CRITERIA MET
[2023-08-24 07:20] LABS: Differential Comment SCANNED
[2023-08-24 07:21] LABS: Anisocytosis 1+; Hypochromasia 1+; Microcytosis 1+
[2023-08-24 07:31] LABS: Anion Gap 3 (5-15); BUN 11 mg/dL (7-18); BUN/Creat Ratio 13.9 RATIO (10-20); Calcium,Total 8.6 mg/dL (8.5-10.1); Chloride 109 mmol/L (98-107); Creatinine, Serum 0.79 mg/dL (0.55-1.02); EST Glomerular Filtration Rate 75 mL/min (>60); Est Glom Filt Rate - Afr Amer 91 mL/min (>60); Estimated Creatinine Clearance 34.73 ml/min; Glucose 110 mg/dL (74-106); Potassium 3.6 mmol/L (3.5-5.1); Sodium Level 142 mmol/L (136-145)
[2023-08-24 09:28] VITALS: BP 147/76; PULSE 82; TEMP 36.9
[2023-08-24 09:32] VITALS: BP 147/76; PULSE 82
[2023-08-24] MEDS: Metoprolol Tartrate 25 MG Tablet PO ×2 (09:32→20:33)
[2023-08-24] MEDS: Pantoprazole Sodium 40 MG Tablet PO ×2 (09:32→20:33)
[2023-08-24] MEDS: Potassium Chloride Oral Soln 20 MEQ/15 ML UDC PO (09:32)
[2023-08-24] MEDS: Losartan Potassium 100 MG Tablet PO (09:32)
[2023-08-24] MEDS: Allopurinol 300 MG Tablet PO (09:32)
[2023-08-24] MEDS: Multivitamin (Healthy Eyes) Capsule 1 CAP PO ×2 (09:32→20:33)
[2023-08-24] MEDS: Ensure Clear 120 ML Liquid PO ×4 (09:33→20:35)
--- NOTE | 2023-08-24 10:40 | DS.PCM_ITS ---
Providers Date of Admission: 08/17/23 Date of Discharge: 08/25/23 Primary Care Physician: Dr. Edgar Menezes, Consultations 08/17/23 17:03 Consult: Infectious Disease Routine Consulting Provider: Adrian Masters Reason for Consult: E Coli Bacteremia infection EMERGENT Consult: No MD Notified: Yes Date Notified: 08/17/23 Time Notified: 17:03 Method of Notification: Answering Service Reason For Visit: DEBILITY Diagnosis Discharge Diagnosis (1) Debility: Status: Acute Code(s): R53.81 - Other malaise Plan: Plan for discharge home with and outpatient therapy, on 08/25. Cane ordered for equipment needs. (2) Neutropenic fever: Status: Acute Code(s): D70.9 - Neutropenia, unspecified; R50.81 - Fever presenting with conditions classified elsewhere Plan: Resolved. Patient has completed treatment with antibiotics on 08/21. (3) Urinary tract infection: Status: Acute Code(s): N39.0 - Urinary tract infection, site not specified Qualifiers: Hematuria presence: without hematuria Urinary tract infection type: acute cystitis Qualified Code(s): N30.00 - Acute cystitis without hematuria Plan: As above. (4) E. coli bacteremia: Status: Acute Code(s): R78.81 - Bacteremia; B96.20 - Unspecified Escherichia coli [E. coli] as the cause of diseases classified elsewhere Plan: As above. 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 (6) Hypertension: Status: Chronic Code(s): I10 - Essential (primary) hypertension Qualifiers: Hypertension type: primary hypertension Qualified Code(s): I10 - Essential (primary) hypertension Plan: Blood pressure has been fluctuating, but overall shows fair control. Will resume patient's valsartan upon discharge and she will follow up with her PCP for further management. 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 Continue home glucose checks and follow up with PCP. (8) Protein-calorie malnutrition, severe: Status: Acute Code(s): E43 - Unspecified severe protein-calorie malnutrition Plan: Continue with supplement shakes along with diet. Remeron ordered to help stimulate appetite. She does feel that she has been eating well during her admission. (9) GERD (gastroesophageal reflux disease): Status: Chronic Code(s): K21.9 - Gastro-esophageal reflux disease without esophagitis Qualifiers: Esophagitis bleeding: without hemorrhage Esophagitis presence: with esophagitis Qualified Code(s): K21.00 - Gastro-esophageal reflux disease with esophagitis, without bleeding Plan: Patient is s/p dilation. Continue with PPI therapy and follow up with GI upon discharge from inpatient rehab. (10) Atrial fibrillation with rapid ventricular response: Status: Acute Code(s): I48.91 - Unspecified atrial fibrillation Plan: Resolved. Patient is currently in sinus rhythm. This was a new diagnosis during her hospital stay. Continue with metoprolol and monitor. Medications at Discharge Home Medications albuterol sulfate 90 mcg/actuation aerosol inhaler 2 puff inhalation 6XD PRN shortness of breath or wheezing #8 grams 11/06/19 allopurinol 300 mg tablet 300 mg PO DAILY kidney health 11/06/19 aspirin 81 mg chewable tablet (Tan Chewable Low Dose Aspirin) 81 mg PO DAILY hearthealth 11/06/19 atorvastatin 10 mg tablet 10 mg PO DAILY lipitor 11/06/19 clonidine HCl 0.2 mg tablet 0.1 mg PO BID blood pressure 11/06/19 vit C 250 mg-vit E 90 mg-zinc 40 mg-copper 1 nd-frcpty-uqubbx capsule (PreserVi patrick AREDS-2) 1 tab PO BID eye health 02/02/23 acetaminophen 325 mg tablet 650 mg PO Q6H pain/fever 08/17/23 metoprolol tartrate 25 mg tablet 25 mg PO BID blood pressure 08/17/23 mirtazapine 7.5 mg tablet 7.5 mg PO QHS sleep 08/17/23 polyethylene glycol 3350 17 gram oral powder packet (Miralax) 17 g PO DAILY bowel mobility 08/17/23 prochlorperazine maleate 10 mg tablet (Compazine) 10 mg PO Q6H PRN nausea and vomiting 08/17/23 food supplemt, lactose-reduced (Ensure Clear oral liquid) 120 ml PO 4X/DAY #120 BOTTLES 08/24/23 pantoprazole 40 mg tablet,delayed release 40 mg PO BID acid reflux #30 tabs 08/24/23 potassium chloride 20 mEq/15 mL oral liquid 20 meq (15 mL) PO DAILY #450 mL 05/09 valsartan 320 mg tablet 160 mg (1/2 x 320 mg) PO DAILY blood pressure #15 tabs 08/24/23 Hospital Course Summary of Care Provided Hospital Course: Patient came as a transfer from [facility] for therapy purposes. She was initially admitted to [facility] on 07/30 with complaints of chest pain and palpitations. The patient had just completed a new chemotherapy treatment 7 days prior and progressively felt weak. While in the ED, she was noted to have a fever. She was also significantly neutropenic. She was admitted for further management. During her admission, she was treated with antibiotics and antifungals. She was transfused 1 unit PRBCs for anemia. She was found to be in Afib and was treated with beta blockers. Her blood cultures were positive for e. coli and she had a UTI. Her antibiotics were adjusted accordingly. During her admission, she was treated with TPN for nutrition and underwent an EGD with dilation. She clinically improved and was transferred to [facility] inpatient rehab for therapy purposes on 08/17. While at rehab, she worked very well with therapy. She completed her antibiotic therapy and remained stable. Her blood pressure medications were further adjusted. It was felt she could be discharged home with outpatient therapy on 08/25. Today, the patient reports she is feeling well. She is anxious to go home and has no significant questions or concerns at this time. Physical Exam Const alert, oriented x3, no apparent distress and well nourished Constitutional Narrative: sitting up in the chair General Appearance: cooperative and comfortable; Negative for in distress, ill appearing or diaphoretic Orientation / Consciousness: awake, oriented to person, oriented to place and oriented to time Exam Limitations: Negative for altered mental status HEENT normocephalic and head/scalp atraumatic Head and Scalp: normocephalic and atraumatic Face and Sinus: normal facial exam Eyes General Eye: normal appearance of both eyes Chest inspection of chest normal Chest Narrative: port in place Chest: symmetrical chest wall rise Resp normal respiratory effort, normal air movement, no use of accessory muscles and clear to auscultation bilaterally Effort and Inspection: able to speak in complete sentences and symmetric chest movement; Negative for respiratory distress or audible wheezes Auscultation: clear to auscultation bilaterally Cardio regular rate, regular rhythm and no murmurs Rate: regular rate Rhythm: regular rhythm Heart Sounds: Negative for murmur GI normal to inspection, nondistended, normoactive bowel sounds, soft to palpation, non-tender and non-distended Auscultation: normoactive bowel sounds Palpation: soft; Negative for tender or guarding Extremity normal to inspection General Extremity: edema bilateral lower extremity (left more than right) Details: trace Skin no rashes or lesions noted General Skin Exam: no breakdown Lesions: no lesions Rashes: no rashes Neuro oriented x3 Sensorium / Orientation: awake, alert, oriented to person, oriented to place and oriented to time Speech: speech normal Psych mental status grossly normal, cooperative, affect normal and speech normal Appearance: grossly normal Attitude: calm Medical Records Data Medical Nutrition Assessment Dietitian: Malnutrition Criteria Met Start: 08/17/23 17:28 Freq: Status: Active Protocol: Document 08/17/23 17:28 LYRIC (Rec: 08/17/23 17:28 [facility] [id number]) Nutrition Malnutrition Evidence of Malnutrition Exists Yes Malnutrition (severe): Chronic Evidenced By Suboptimal Energy Intake ( Severe),Weight Loss (Severe) Clinical Problem Chronic Disease or Condition Related Malnutrition Etiology related to swallowing impairment making it difficult to have adequate energy intake Signs/Symptoms as evidenced by pt meeting <75 % of estimated nutritional needs and 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 Weight / BMI Weight Weight: 102 lb 15.294 oz Body Mass Index (BMI) 19.1 ABG / Lab / Microbiology Data 08/24/23 06:05 08/24/23 06:05 Laboratory: Laboratory Results - last 24 hr 08/23/23 16:16: POC Glucose 134 H 08/23/23 21:39: POC Glucose 153 H 08/24/23 06:02: POC Glucose 114 H 08/24/23 06:05: WBC 6.7, RBC 2.63 L, Hgb 8.2 L, Hct 25.9 L, MCV 98.5, MCH 31.2, MCHC 31.7 L, RDW Std Deviation 76.4 H, RDW Coeff of Shameka 21.4 H, Plt Count 264, MPV 9.8, Immature Gran % (Auto) 0.900, Neut % (Auto) 58.8, Lymph % (Auto) 13.2 L , [place] % (Auto) 15.5 H, Eos % (Auto) 10.1 H, Baso % (Auto) 1.5 H, Absolute Neuts (auto) 4.0, Absolute Lymphs (auto) 0.89, Nucleated RBC % 0, Differential Comment SCANNED, Hypochromasia 1+, Anisocytosis 1+, Microcytosis 1+, Sodium 142, Potassium 3.6, Chloride 109 H, Carbon Dioxide 30.0, Anion Gap 3 L, BUN 11, Creatinine 0.79, Estim Creat Clear Calc 34.73, Est GFR (MDRD) Af Amer 91, Est GFR (MDRD) Non-Af 75, BUN/Creatinine Ratio 13.9, Glucose 110 H, Calcium 8.6 Indicators for Scoring Admitted with or Primary Diagnosis of CVA/Stroke: No Hx of CVA/Stroke: No Modified [place] Score MRS Score at time of Evaluation: 2-Slight disability D/C Instructions Discharge Diet: Carb Control Diet Discharge Activity: - (per therapy recommendations) Weight Bearing Status: Full weight bearing Call your doctor if you observe: Fever of 101 or Higher, Numbness or Tingling, Inability to urinate, Shortness of breath, Dizziness, Fainting spells, Chest pain, Increased palpitations (irregular heartbeat) and Uncontrolled pain Please Follow Up With: Edgar Menezes, DO When: as scheduled Meaningful Use Info Meaningful Use Diagnoses (Choose all that apply): None applicable Discharge Plan Admission Admit Date/Time: 08/17/23 13:15 Primary Reason for Your Visit: Debility - Neutropenic fever Attending Provider: Codey Licea Chi Primary Care Provider: Edgar Menezes Consulting Providers: Adrian Masters Discharge Orders/Prescriptions Prescriptions: New Ensure Clear Liquid 120 ml PO 4X/DAY Qty: 120 0RF potassium chloride 20 mEq/15 mL Liquid 20 meq PO DAILY Qty: 450 0RF Continued clonidine HCl 0.2 mg tablet 0.1 mg PO BID Rx Instructions: takes 1 in the afternoon and 1 in the evening atorvastatin 10 mg tablet 10 mg PO DAILY allopurinol 300 mg tablet 300 mg PO DAILY aspirin [Tan Chewable Aspirin] 81 mg tablet,chewable 81 mg PO DAILY albuterol sulfate 90 mcg/actuation HFA aerosol inhaler 2 puff INHALATION 6XD PRN (Reason: shortness of breath or wheezing) Qty: 8 0RF PreserVision AREDS-2 250-90-40-1 mg Capsule 1 tab PO BID metoprolol tartrate 25 mg tablet 25 mg PO BID acetaminophen 325 mg tablet 650 mg PO Q6H mirtazapine 7.5 mg tablet 7.5 mg PO QHS Patient Comments: TAKE 1 TABLET BY MOUTH EVERYDAY AT BEDTIME polyethylene glycol 3350 [Miralax] 17 gram powder in packet 17 g PO DAILY prochlorperazine maleate [Compazine] 10 mg tablet 10 mg PO Q6H PRN (Reason: nausea and vomiting) valsartan 320 mg tablet 160 mg PO DAILY Qty: 15 0RF Changed pantoprazole 40 mg tablet,delayed release (DR/EC) 40 mg PO BID Qty: 30 5RF Discontinued indapamide 2.5 mg tablet 2.5 mg PO DAILY metoprolol tartrate 100 MG tablet 100 mg PO BID metformin 500 mg tablet 500 mg PO BID Qty: 0 0RF Rx Instructions: start after 3 days, on 11/17/2019 Zosyn in dextrose (iso-osm) 3.375 gram/50 mL piggyback 3.375 g IV Q12H Referrals / Follow Up: dEgar Menezes DO [Primary Care Provider] - Disposition Disposition (needs filled in before D/C Order can be placed): Home, Self Care Charges/Coding Visit Charges Inpatient E&M: 42436 Disch Hosp >30min
[2023-08-24] MEDS: 0.9 % NaCl (Sterile) Posiflush 10 mL IV (20:21)
[2023-08-24 20:30] VITALS: BP 156/81; PULSE 84; RESP 18; TEMP 37; O2SAT 97
[2023-08-24] MEDS: Mirtazapine 15 MG Tablet 7.5 MG PO (20:32)
[2023-08-24 20:33] VITALS: BP 156/81; PULSE 84
[2023-08-24] MEDS: Insulin Lispro 100 UNIT/ML INSULN.PEN SC (20:42)
[2023-08-24 21:57] LABS: Bedside Glucose 157 mg/dL (74-106)
[2023-08-25] MEDS: Insulin Lispro 100 UNIT/ML INSULN.PEN SC (06:33)
[2023-08-25 06:43] LABS: Bedside Glucose 127 mg/dL (74-106)
[2023-08-25 08:01] VITALS: BP 149/85; PULSE 83; RESP 16; TEMP 36.7; O2SAT 94
[2023-08-25 08:16] VITALS: BP 149/85; PULSE 83
[2023-08-25] MEDS: Metoprolol Tartrate 25 MG Tablet PO (08:16)
[2023-08-25] MEDS: Pantoprazole Sodium 40 MG Tablet PO (08:16)
[2023-08-25] MEDS: Multivitamin (Healthy Eyes) Capsule 1 CAP PO (08:16)
[2023-08-25] MEDS: Allopurinol 300 MG Tablet PO (08:17)
[2023-08-25] MEDS: Losartan Potassium 100 MG Tablet PO (08:17)
[2023-08-25] MEDS: Potassium Chloride Oral Soln 20 MEQ/15 ML UDC PO (08:18)
[2023-08-25] MEDS: Ensure Clear 120 ML Liquid PO (08:26)
[2023-08-25 09:00] VITALS: BP 149/85; PULSE 83; RESP 16; TEMP 36.7; O2SAT 94
--- NOTE | 2023-08-25 09:00 | NURSING ---
Discharge to home and patient and family verbalized understanding.
== END 2023-08-25 09:00 | disposition home or self-care (01) | DRG 689 ==
PROVIDERS: Admitting Provider Family Medicine Geriatric Medicine; PCP Family Medicine; Visit Provider Family Medicine Geriatric Medicine
DX: N30.00 Acute cystitis without hematuria (principal); E43 Unspecified severe protein-calorie malnutrition; R78.81 Bacteremia; B37.81 Candidal esophagitis; C77.3 Secondary and unspecified malignant neoplasm of axilla and upper limb lymph nodes; D70.1 Agranulocytosis secondary to cancer chemotherapy; C50.919 Malignant neoplasm of unspecified site of unspecified female breast; E11.9 Type 2 diabetes mellitus without complications; I48.91 Unspecified atrial fibrillation; I10 Essential (primary) hypertension; K58.9 Irritable bowel syndrome, unspecified; E78.00 Pure hypercholesterolemia, unspecified; M10.9 Gout, unspecified; K21.9 Gastro-esophageal reflux disease without esophagitis; R50.81 Fever presenting with conditions classified elsewhere; B96.20 Unspecified Escherichia coli [E. coli] as the cause of diseases classified elsewhere; Z79.84 Long term (current) use of oral hypoglycemic drugs; Z79.899 Other long term (current) drug therapy; Z79.82 Long term (current) use of aspirin; T45.1X5D Adverse effect of antineoplastic and immunosuppressive drugs, subsequent encounter; Z68.20 Body mass index [BMI] 20.0-20.9, adult
CPT/HCPCS: 36415; 80048; 80053; 82962; 83735; 84100; 85025; 94668; 97110; 97112; 97116; 97162; 97165; 97530; 97535; 97802; 97803; J7050; A4216

== ENCOUNTER 2023-09-06 14:00 | Outpatient (RCR) | payer MEDICARE, OTHER, SELFPAY ==
--- NOTE | 2023-08-28 16:15 | HP.PTEVAL ---
Patient's Visit Information Visit Information Visit Information: JENNA TERAN is a 78 year old F referred to Physical Therapy by Dr. Cassandra Rivera MD with a diagnosis of debility. Date of Evaluation: 08/28/23 Physical Therapist: LAUREN JoinerT, OCS, CSCS Visit Plan Frequency: 2x /Week Duration: 4-6 Weeks Plan: 2x/week for 3-4 weeks to teach HEP for LE, hip stab, core strengthening, HS and gastroc stretches all with pics to complement current sink exercises. May do steps also. Subjective Subjective: Was in rehab unit after chemo 8 treatments and got weak. Ended up in [facility] then to rehab and in hospital 27 days total. Having chemo for breast CA. Surgery is next treatments. Out of rehab last weekend. Went home to one story with two people(). No AD needed at home but supposed to use cane out and about. had one fall prior to hospital due to lightheadedness. Basic ADLS are getting done with dressing, showering, bathroom but helps step into tub with shower chair. Spends day doing laundry, get breakfast, not overly tired but rests often. Hobbies: plays with friends dominos and reads, go to childrens sporting events (basketball. cross country, track) Not lately. No regualr exercises. Objective Objective: Walks I into adn out of PT without AD. Trasnfers I bed and chair without UE. Steps reciprocal withj one rail easily, slight weakness descending. AROM B LE adn UE WFL, some tightness in HS and gastroc B. reflexes 1/3 patella and achilles sensation LE WNL to gabby slight touch. coordination to reciprocal toe tap without a problem and heel tap Strength LE 4/5 L except hip rotation, abd and ext 3+. core strength ext adn flexion 3+. UE strength 4-. Balance/Special Test Scores Functional Gait Assessment Score: 25 % Disability: 16.6700 CATSIB Score (Max score 120 seconds): 100 Lower Extremity Functional Score: 47 TUG Test Time Seconds: 7 30 Second Chair Rise Test Seconds: 15 Goals Goal 1:: Pt feel 90% back to normal activity Goal Time Frame: 4-6 Weeks Goal 2:: pt able to go to basketball game of grandchildren without hesitation or problem Goal Time Frame: 4-6 Weeks Goal 3:: I HEP to minimize future problems Goal Time Frame: 4-6 Weeks Rehabilitation Potential Physical Therapy Diagnosis: weakness in core and fatigues easily after hospital stay. Rehabilitation Potential: Fair Anticipated Interventions Patient/Client Instruction: Educate patient on: Condition For the Purpose of:: To improve nutrient delivery to tissue, To improve muscle performance and motor function, To increase tolerance to activity/condition/position and To improve ability of physical actions for home/community/work/leisure Therapeutic Exercise to Include: Strength training and Flexibilty training For the Purpose of:: To improve muscle performance and motor function, To increase tolerance to activity/condition/position, To improve ability of physical actions for home/community/work/leisure and To improve gait and locomotor functions Text: Thank you for the opportunity to evaluate your patient. For Medicare and Medicare HMO plans, please review the plan of care and approve it. It will need to be FAXED BACK to us at [phone] for Medicare purposes. For Medicare only, by signing this I certify the plan of care. Please let me know if there are questions or concerns regarding this plan of care. Physician Signature: Date:
--- NOTE | 2023-12-03 10:08 | HP.PTDCNRP_ITS ---
Patient Information Patient Information: JENNA TERAN was seen in my office for initial evaluation on 08/28/23. The following Plan of Care was established for this patient: POC Established Initial Frequency: 2x /Week Initial Duration: 4-6 Weeks Anticipated Interventions Patient/Client Instruction: Educate patient on: Condition For the Purpose of:: To improve nutrient delivery to tissue, To improve muscle performance and motor function, To increase tolerance to activity/condition/position and To improve ability of physical actions for home/community/work/leisure Therapeutic Exercise to Include: Strength training and Flexibilty training For the Purpose of:: To improve muscle performance and motor function, To increa se tolerance to activity/condition/position, To improve ability of physical actions for home/community/work/leisure and To improve gait and locomotor functions Last Seen Last Seen: This patient was last seen in our office 09/06/23. Pertinent comments regarding their Physical therapy will appear below: Pt seen for 3 visits of POC and then cancelled all visits in favor of home health PT. At this point I will be discontinuing this patient from physical therapy. I would be happy to see this patient again in the future if found appropriate by the physician. Thank you! Alex Farmer, DPT, OCS, CSCS Balance/Gait/Functional tests Balance/Special Test Scores Functional Gait Assessment Score: 25 % Disability: 16.6700 CATSIB Score (Max score 120 seconds): 100 Lower Extremity Functional Score: 47 TUG Test Time Seconds: 7 Tug Test: <10 sec.=free mobile 30 Second Chair Rise Test Seconds: 15
== END 2023-09-06 19:00 | disposition home or self-care (01) ==
LOC: PT 14:00
PROVIDERS: PCP Family Medicine; Referring Provider Internal Medicine; Visit Provider Internal Medicine
DX: R53.81 Other malaise (principal); C79.9 Secondary malignant neoplasm of unspecified site; C50.919 Malignant neoplasm of unspecified site of unspecified female breast
CPT/HCPCS: 97110; 97161

== ENCOUNTER 2024-01-02 23:59 | Inpatient (IN) | payer MEDICARE, OTHER, SELFPAY ==
[2024-01-03] VITALS (12 sets, daily range): BP systolic 107–165; BP diastolic 53–95; PULSE 74–91; RESP 16–18; TEMP 36–36.8; O2SAT 93–98; BMI 19.1; BMI 18.1
--- NOTE | 2024-01-03 | FLU_PTH ---
PATIENT: JENNA TERAN LOC: ICU U#:[id number] AGE/SX: 78/F ROOM: [place] [address] RE01/03/[address]: Dr. Luis Alberto Espinoza DO : 1945 BED: 1 DIS: 01/05/2024 SPEC #: [id number] RECD: 01/03/24 13:47 STATUS: SOUT REQ #: [id number] MARY: 01/03/24 00:[address]: Bruce Fuller DEPT: CYTOLOGY RECD BY: Gabe Davey ENTERED: 01/04/24 09:23 SP TYPE: Fluid OTHR DR: MD Dr. Mg Porter MD Dr. Bryan Bonder, MD Dr. Drew Abramovich, MD Dr. Derek Brown, DO Dr. Edward Matheis, MD Dr. Eugene Petrilla, DO Dr. Elnora Spradling, MD Dr. Gautam Baskaran, MD Dr. Yordanos Habtegebriel, MD Dr. Hemant Dand, MD Dr. Jayaprakas Dasari, MD Dr. James Schuster, MD Dr. Kimber Foust, MD Dr. Lamia Aljundi, MD Dr. Lapman Lun, MD Dr. Mir Ali, MD Dr. Nicholas F Kotsonis, MD Dr. Pritam Ghosh, MD Dr. Pavan Irukulla, MD Dr. Paul Masci, DO Dr. Robert Leininger, MD Dr. Saad Farooqi, MD Dr. Vikram Anand, MD Dr. William Haden, MD Tissues: THORACIC FLUID Procedures: Special Stain Group II Surgery Specimen Level IV Cytospin Fluid HEADER OPERATION: Ultrasound guided thoracentesis PRE-OP DIAGNOSIS: Pleural effusion TISSUE SUBMITTED: Thoracentesis fluid for cytology DIAGNOSIS CYTOLOGY Thoracentesis fluid for cytology (cytospin and cellblock): Negative for malignant cells. Marked acute inflammation. See comment. SJ/mr 01/07/24 COMMENT Correlation with clinical, radiologic findings and appropriate follow up are necessary. CYTOLOGY STUDY Slides are reviewed. CYTOLOGY GROSS Received is 90 ml of yellow-cloudy fluid labeled with the patient's name and and designated per the requisition as Thoracentesis fluid. Submitted for cytology preparation including cell block. 01/04/2024 TC:2 CPT: 12335 ,93175
--- NOTE | 2024-01-03 00:20 | CT_ITS ---
STUDY: CTA CHEST REASON FOR EXAM: Female, 78 years old. chest pain RADIATION DOSAGE (If Supplied By Facility): CTDIvol = ( 3.91 ) mGy, DLP = ( 158.11 ) mGycm TECHNIQUE: The examination was performed with the intravenous administration of IV 75 mL Isovue-370. Post-processing of the angiographic images was performed, with multiplanar reformation and 3D reconstruction. Individualized dose optimization techniques were used for this CT. COMPARISON: February 10, 2020. FINDINGS: Accessed right chest port tip projects at the right atrium. Normal enhancement of the bilateral peripheral pulmonary arteries. There is no demonstrated pulmonary embolism. No main pulmonary arterial enlargement. Left vertebral artery originates from the arch. Mild aortic atherosclerosis without dissection or ectasia . No cardiomegaly or pericardial effusion. Minimal nonspecific inferior pericardial fluid.. No mediastinal or hilar adenopathy. Moderate hiatal hernia. Diffuse mild peribronchial thickening. Moderate right and trace left layering pleural effusion with multi segmental atelectasis right lower lobe. Small amount of pleural air, bulla, or cavitation at the medial right lower lobe. Mild apical scarring. 1.1 cm posterior left lower lobe nodule axial image 111 Normal osseous structures. Prior left mastectomy Normal visualized upper abdomen. CT/CTA Chest W/WO Contrast IMPRESSION: No pulmonary embolism. Moderate right and trace left layering pleural effusion with small amount of pleural air versus adjacent cavitation or bulla at the medial right lower lobe . Associated compressive atelectasis right lower lobe posterior segment. Moderate hiatal hernia. 1.1 cm posterior left lower lobe nodule or atelectasis. 3 month follow-up CT recommended. Electronically Signed: Virgilio Boucher MD at 2:20 EDT ,
[2024-01-03] MEDS: Orphenadrine 60 MG/2 ML Ampul IV (00:50)
[2024-01-03] MEDS: Ondansetron 4 MG/2 ML Vial IV (00:50)
[2024-01-03] MEDS: fentaNYL 100 MCG/2 ML Ampul 25 MCG IV (00:50)
[2024-01-03] MEDS: 0.9% Normal Saline (500mL Bag) 500 ML 999 ML IV (00:51)
[2024-01-03 01:02] LABS: International Normalized Ratio 1.1; Prothrombin Time (Protime)PT. 14.6 SECONDS (11.7-14.9)
[2024-01-03 01:03] LABS: Partial Thromboplast Time 29.3 Seconds (24.1-36.2)
[2024-01-03 01:04] LABS: Absolute Lymphocyte Count 0.13 X10^3/uL (0.83-4.51); Absolute Neutrophil Count 3.6 X10^3/uL (2.0-7.7); Basophil# 0.02 X10^3/uL; Basophil% 0.5 % (0-1); Hematocrit 25.8 % (37-47); Hemoglobin 8.1 g/dL (12.0-15.0); Lymphocyte # 0.13 X10^3/ul (0.83-4.51); Lymphocyte % 3.3 % (19-41); Mean Corp Hgb Conc 31.4 g/dL (32-36); Mean Corpuscular Hgb 30.7 pg (27.0-32.0); Mean Corpuscular Volume 97.7 fL (81-99); Monocyte# 0.17 X10^3/uL; Monocyte% 4.3 % (0-10); NRBC Flagged by Analyzer 0 % (0-5); Neutrophil # 3.55 X10^3/uL (2.7-7.7); Neutrophil % 90.9 % (47-70); POSITIVE COUNT YES; POSITIVE DIFFERENTIAL YES; POSITIVE MORPHOLOGY YES; RBC Distribution Width CV 15.9 % (11.6-14.6); RBC Distribution Width SD 56.3 fl (35.1-43.9); Red Blood Count 2.64 M/mm3 (4.2-5.4); White Blood Count 3.9 K/mm3 (4.4-11.0)
[2024-01-03 01:08] LABS: Differential Indicated SCAN CRITERIA MET; Platelet Count 27 K/mm3 (150-450)
[2024-01-03 01:16] LABS: Anion Gap 6 (5-15); BUN 30 mg/dL (7-18); BUN/Creat Ratio 20.1 RATIO (10-20); Calcium,Total 7.4 mg/dL (8.5-10.1); Chloride 103 mmol/L (98-107); Creatinine, Serum 1.49 mg/dL (0.55-1.02); EST Glomerular Filtration Rate 36 mL/min (>60); Est Glom Filt Rate - Afr Amer 44 mL/min (>60); Estimated Creatinine Clearance 23.71 ml/min; Glucose 477 mg/dL (74-106); Sodium Level 137 mmol/L (136-145)
[2024-01-03 02:18] LABS: Mucous, Urine 0 SEEN /hpf (<or=2+)
[2024-01-03 02:19] LABS: Color, Urine Yellow (Yellow); Glucose, Dipstick 1000 mg/dl (Normal); Ketone-Dipstick 5 mg/dl (Negative); Leukocyte Esterase-Dipstick 500 /ul (Negative); Nitrite-Dipstick Negative (Negative); Occult Blood-Urine 150 /ul (Negative); Protein-Dipstick 30 mg/dl (Negative); Urine Bilirubin Dipstick Negative (Negative); Urine Clarity Clear (Clear); Urine Urobilinogen Normal (Normal); Urine pH 6.5 (5.0 - 8.0)
[2024-01-03 02:40] LABS: Bacteria 3+ /hpf (None Seen); Red Blood Cells-Urine 0-5 SEEN /hpf (0-5); Squamous Epithelial Cells - UA 0-5 SEEN /hpf (5-10); White Blood Cells 10-25 SEEN /hpf (0-5)
[2024-01-03 02:42] LABS: Differential Comment SCANNED; Platelet Estimate MKD DEC (ADEQ)
[2024-01-03] MEDS: Piperacil/Tazobactam 3.375 GM in 0.9% Normal Saline (50mL MB+) 50 ML IV ×3 (03:24→21:55)
--- NOTE | 2024-01-03 03:26 | EDS_ITS ---
HPI History of Present Illness Chief Complaint: Back Informant: patient, spouse/S.O. and family Narrative Narrative: Patient is a 78-year-old female with past medical history of hypertension hyperlipidemia and breast cancer. Secondary to adverse reactions she cannot do any type of chemotherapy or radiation. Patient and family states she was actually in the hospital for 4 weeks secondary to intractable diarrhea and dehydration from a Keytruda dose. They states has been home for approximately 2 weeks and has been doing well. Patient states that this evening she was in the kitchen and then she developed sudden onset back pain that was sharp in nature. She states that there is been no recent trauma or excessive activity. She states that the pain seems to worsen with motion and or deep inspiration. Family reports that she is only required Tylenol occasionally since her discharge and there is been no report of metastatic lesions to the rib cage or spine. However because of the sudden onset of pain and the fact she has been essentially pain-free they concern for infection or fracture and she was brought in for evaluation [facility] Medical History (Updated 01/03/24 @ 03:[address] Kenneth Blunt, ) Arthritis Diabetes Difficulty swallowing Diverticular disease Esophageal dysphagia Gastric reflux GERD (gastroesophageal reflux disease) Gout Hiatal hernia History of diverticulitis History of IBS History of kidney stones Hypercholesteremia Hypertension IBS (irritable bowel syndrome) Non-smoker Osteoarthritis Wears glasses Home Medications allopurinol 300 mg tablet 300 mg PO DAILY kidney health 11/06/19 [History Last Taken 08/17/23] vit C 250 mg-vit E 90 mg-zinc 40 mg-copper 1 [id number] capsule (PreserVi patrick AREDS-2) 1 tab PO BID eye health 02/02/23 [History Last Taken 08/17/23] acetaminophen 325 mg tablet 650 mg PO Q6H pain/fever 08/17/23 [History Last Taken Unknown] metoprolol tartrate 25 mg tablet 25 mg PO BID blood pressure 08/17/23 [History Last Taken 08/17/23] prochlorperazine maleate 10 mg tablet (Compazine) 10 mg PO Q6H PRN nausea and vomiting 08/17/23 [History Last Taken Unknown] food supplemt, lactose-reduced (Ensure Clear oral liquid) 120 ml PO 4X/DAY #120 BOTTLES 08/24/23 [Rx Last Taken Unknown] pantoprazole 40 mg tablet,delayed release 40 mg PO BID acid reflux #30 tabs 08/24/23 [Rx Last Taken Unknown] gabapentin 100 mg capsule 100 mg PO QHS 01/03/24 [History Last Taken Unknown] prednisone 10 mg tablet 30 mg PO DAILY 01/03/24 [History Last Taken Unknown] Allergy/AdvReac Type Severity Reaction Status Date / Time diltiazem [From Cardizem] Allergy Mild HIVES Verified 01/03/24 00:02 minoxidil Allergy Mild TACHYCARDIA Verified 01/03/24 00:02 prazosin [From Minipress] AdvReac Other Verified 01/03/24 00:02 Family History Brother Melanoma Prostate cancer Brother Liver cancer Mother , at 85. Congestive heart failure Father , at 64. COPD (chronic obstructive pulmonary disease) Surgical History (Updated 09/02/23 @ 00:01 by Annmarie Palmer) History of breast biopsy History of endometrial biopsy History of esophageal dilatation History of extraction of renal calculus Social History household members: spouse Smoking Status: Never smoker alcohol intake: never substance use type: does not use ROS ROS ED Constitutional Constitutional ED: Denies chills or fever(s) ENT ENT ED: Denies rhinorrhea or sore throat Cardiovascular Cardiovascular: Denies chest pain, palpitations or racing heartbeat Respiratory/Chest Respiratory/Chest: Reports cough and dyspnea Gastrointestinal Gastrointestinal: Denies abdominal pain, diarrhea, nausea or vomiting Genitourinary Genitourinary ED: Denies dysuria Musculoskeletal Musculoskeletal: Reports back pain Integumentary Denies rash Neurologic Neurologic: Denies headache(s) Hematologic/Lymphatic Hematologic/Lymphatic: Denies easy bleeding or easy bruising EXAM Physical Exam Const Vital Signs: 01/03/24 00:00 01/03/24 00:00 01/03/24 02:24 Temperature 96.8 F L 96.8 F L 97.4 F L Temperature Source Temporal Temporal Temporal Pulse Rate 91 91 77 Respiratory Rate 18 18 16 Blood Pressure 165/95 H 165/95 H 144/78 H Blood Pressure Mean 118 118 100 Pulse Ox 98 98 94 Oxygen Delivery Method Room Air Room Air Room Air Positive well developed and cachectic General Appearance ED: well developed and cachectic; Negative for pallor Nutritional Appearance: cachectic HEENT Reports moist mucous membranes HEENT Narrative: No tongue or lip swelling no oral lesions no airway edema or compromise No signs of infection noted in the posterior pharynx Eyes PERRL and EOMs intact bilaterally General Eye ED: Negative for pale conjunctiva or scleral icterus Neck supple and no JVD Neck Narrative: No nuchal rigidity or meningeal signs noted Chest Wall Chest Narrative: No bony deformity or crepitance of the anterior chest wall. Patient does have pain on palpation of the posterior chest wall/posterior rib cage just lateral to the left and right of the thoracic spine rib regions 4-6. Resp normal respiratory effort Resp Narrative: Patient has diminished breath sounds in the right lower lobe with rhonchi noted. However no nasal flaring retractions tachypnea or accessory muscle use Cardio regular rate and regular rhythm Rate: other Other Details: Heart is regular rate and rhythm Radial and carotid pulses are equal and symmetric GI normal to inspection, nondistended, normoactive bowel sounds, non-tender, non- distended and no masses GI Narrative: Abdomen is soft nontender and nondistended with normal active bowel sounds. No voluntary guarding or rigidity or pulsatile mass. Auscultation: normoactive bowel sounds Palpation: soft Back/Spine Back/Spine Narrative: No bony deformity or step-off of the thoracic or lumbar spine no midline tenderness to palpation Extremity Extremity Narrative: Patient has +3 pitting edema to the bilateral lower extremities which is chronic per patient and family Negative Homans' sign bilaterally Neuro oriented x3, CN's II-XII intact bilaterally and no sensory deficits noted Sensorium / Orientation: alert Motor Exam: strength 5/5 throughout Psych mental status grossly normal Skin no rashes or lesions noted Skin Narrative: No overlying soft tissue skin changes to suggest trauma or infection General Skin Exam: Negative for jaundice or pallor MDM MDM MDM Narrative Medical decision making narrative: Patient presented to the ER hypertensive but otherwise with stable vitals. She reported sudden onset of bilateral upper back pain but reported that there has been mild spontaneous improvement upon arrival to the ER and she does report that the pain seems to worsen with motion. Based on her history of breast cancer there is concern that patient may have a pulmonary embolus or a pa thologic fracture of her ribs or spine. There is also concern for potential pneumonia versus pneumothorax versus dissection. Secondary to this basic blood work and a CTA were obtained. Labs show chronic anemia at 8.1 which chart review reveals is chronic in nature. However her platelet count is now 27 and chart review reveals that on December 20 her platelet count was normal at 155. Patient is urine sample does show changes consistent with infection as well and her blood glucose is elevated at 477 with calculated serum osmolality of approximately 320. As chart review reveals the patient is having significant derangement to her labs it is felt this could be related to a secondary infection so blood culture was obtained as well as lactic acid procalcitonin value and she was started on vancomycin and Zosyn. The patient CT scan revealed no PE or dissection or bony pathology. However it did show a right-sided pleural effusion with potential pleural air versus bulla versus cavitary lesion. With the patient's laboratory derangements sudden onset of pain and known history of cancer as well as family stating she has had a cough there is concern this could be infectious in nature which is another reason she was started on antibiotics. It was so the patient will need to be admitted to the hospital based on her symptoms and patient and family wish to stay at this facility other than returning to [facility] where she was at for her last admission. Therefore the medicine/hospitalist physician was contacted and he does agree except the patient at this time History & Record Review Discussion w/independent historian: Patient and Family Lab Data Attestation: I reviewed the patient's lab results. Labs: Laboratory Results - last 24 hr 01/03/24 01/03/24 00:42 01:50 WBC 3.9 L RBC 2.64 L Hgb 8.1 L Hct 25.8 L MCV 97.7 MCH 30.7 MCHC 31.4 L RDW Std Deviation 56.3 H RDW Coeff of Shameka 15.9 H Plt Count 27 L* MPV TNP Immature Gran % (Auto) 1.000 H Neut % (Auto) 90.9 H Lymph % (Auto) 3.3 L [place] % (Auto) 4.3 Eos % (Auto) 0.0 Baso % (Auto) 0.5 Absolute Neuts (auto) 3.6 Absolute Lymphs (auto) 0.13 L Nucleated RBC % 0 Differential Comment SCANNED Diff Path Review May foll Platelet Estimate MKD DEC PT 14.6 INR 1.1 APTT 29.3 Sodium 137 Potassium 4.0 Chloride 103 Carbon Dioxide 28.0 Anion Gap 6 BUN 30 H Creatinine 1.49 H Estim Creat Clear Calc 23.71 Est GFR (MDRD) Af Amer 44 L Est GFR (MDRD) Non-Af 36 L BUN/Creatinine Ratio 20.1 H Glucose 477 H* Calcium 7.4 L Urine Color Yellow Urine Clarity Clear Urine pH 6.5 Ur Specific Ward 1.010 Urine Protein 30 H Urine Glucose (UA) 1000 H Urine Ketones 5 H Urine Occult Blood 150 H Urine Nitrite Negative Urine Bilirubin Negative Urine Urobilinogen Normal Ur Leukocyte Esterase 500 H Urine RBC 0-5 SEEN Urine WBC 10-25 SEEN Ur Squamous Epith Cells 0-5 SEEN Urine Bacteria 3+ Urine Mucus 0 SEEN Radiography Diagnostic Testing: Clinical Impression(s) from Imaging Studies Chest CTA 01/03/24 00:20 IMPRESSION: No pulmonary embolism. Moderate right and trace left layering pleural effusion with small amount of pleural air versus adjacent cavitation or bulla at the medial right lower lobe . Associated compressive atelectasis right lower lobe posterior segment. Moderate hiatal hernia. 1.1 cm posterior left lower lobe nodule or atelectasis. 3 month follow-up CT recommended. Electronically Signed: Virgilio Boucher MD at 2:20 EDT Reading Location ID and State: [facility] / [place] Tel , Service support , Management Discussion w/another healthcare provider: Hospitalist Discharge Plan Dx/Rx/DC Orders Clinical Impression: UTI (urinary tract infection), Acute hyperglycemia, Breast cancer, Thrombocytopenia, Pleural effusion on right, Non-insulin dependent diabetes mellitus Disposition Disposition: Acute Care Hospital [facility]
[2024-01-03 03:45] LABS: Lactic Acid 1.1 mmol/L (0.4-1.9)
--- NOTE | 2024-01-03 03:47 | PCM.HP.STD ---
HPI - General General Date of Admission: 01/03/24 HPI Narrative JENNA TERAN, is a 78 F who presents to the hospital with a sudden onset of upper back pain. She says that she no longer feels that pain and is unsure as to what brought it on, she denies any trauma or abnormal movement last evening. On presentation to the ER she was found to have 6 thrombocytopenia up to 25,000 just a few days ago her platelets were around 155,000. She is also found to be leukopenic and hyperglycemic. She does have a history of diabetes but is no longer on any medication secondary to having been on chemotherapy for breast cancer. She was diagnosed with breast cancer last April and they attempted to do chemotherapy however she developed significant side effects from the chemotherapy so that was discontinued. She underwent mastectomy in October and then was going to be placed on Keytruda. The Keytruda led to severe diarrhea, the diarrhea will went on for approximately 4 weeks and she spent about a week in the hospital due to dehydration and electrolyte abnormalities as well as an SKYLA. The only thing that was found to help with the diarrhea was steroids and she is currently on a prednisone taper, she is on the 30 mg daily for a week and starting Sunday she goes down to 20 mg daily. In the ER she was found to have a UTI as well as a pleural effusion with signs of possible infection. She is afebrile but is leukopenic which can occur in infections. She received a dose of vancomycin and Zosyn in the ER with blood and urine cultures pending. [facility] Medical History (Updated 01/03/24 @ 03:[address] Kenneth Blunt, ) Arthritis Diabetes Difficulty swallowing Diverticular disease Esophageal dysphagia Gastric reflux GERD (gastroesophageal reflux disease) Gout Hiatal hernia History of diverticulitis History of IBS History of kidney stones Hypercholesteremia Hypertension IBS (irritable bowel syndrome) Non-smoker Osteoarthritis Wears glasses Home Medications allopurinol 300 mg tablet 300 mg PO DAILY kidney health 11/06/19 [History Last Taken 08/17/23] vit C 250 mg-vit E 90 mg-zinc 40 mg-copper 1 [id number] capsule (PreserVision AREDS-2) 1 tab PO BID eye health 02/02/23 [History Last Taken 08/17/23] acetaminophen 325 mg tablet 650 mg PO Q6H pain/fever 08/17/23 [History Last Taken Unknown] metoprolol tartrate 25 mg tablet 25 mg PO BID blood pressure 08/17/23 [History Last Taken 08/17/23] prochlorperazine maleate 10 mg tablet (Compazine) 10 mg PO Q6H PRN nausea and vomiting 08/17/23 [History Last Taken Unknown] food supplemt, lactose-reduced (Ensure Clear oral liquid) 120 ml PO 4X/DAY #120 BOTTLES 08/24/23 [Rx Last Taken Unknown] pantoprazole 40 mg tablet,delayed release 40 mg PO BID acid reflux #30 tabs 08/24/23 [Rx Last Taken Unknown] gabapentin 100 mg capsule 100 mg PO QHS 01/03/24 [History Last Taken Unknown] prednisone 10 mg tablet 30 mg PO DAILY 01/03/24 [History Last Taken Unknown] Allergy/AdvReac Type Severity Reaction Status Date / Time diltiazem [From Cardizem] Allergy Mild HIVES Verified 01/03/24 00:02 minoxidil Allergy Mild TACHYCARDIA Verified 01/03/24 00:02 prazosin [From Minipress] AdvReac Other Verified 01/03/24 00:02 Family History Brother Melanoma Prostate cancer Brother Liver cancer Mother , at 85. Congestive heart failure Father , at 64. COPD (chronic obstructive pulmonary disease) Surgical History (Updated 09/02/23 @ 00:01 by Annmarie Palmer) History of breast biopsy History of endometrial biopsy History of esophageal dilatation History of extraction of renal calculus Social History household members: spouse Smoking Status: Never smoker alcohol intake: never substance use type: does not use ROS Constitutional Constitutional: Denies chills, fatigue, fever(s) or malaise Eyes Eyes: Denies blurry vision ENT HEENT: Denies headache(s) or nasal discharge Cardiovascular Cardiovascular: Denies chest pain, dyspnea on exertion or syncope Respiratory/Chest Respiratory/Chest: Denies cough, shortness of breath at rest or shortness of breath with exertion Gastrointestinal Gastrointestinal: Denies constipation, diarrhea, nausea or vomiting Genitourinary Genitourinary: Denies dysuria Musculoskeletal Musculoskeletal: Reports back pain Neurologic Neurologic: Denies focal weakness, numbness or tremor(s) Psychiatric Psychiatric: Denies anxiety or depression Vital Signs Vital Signs Vital Signs: 01/03/24 00:00 01/03/24 00:00 01/03/24 02:24 Temperature 96.8 F L 96.8 F L 97.4 F L Temperature Source Temporal Temporal Temporal Pulse Rate 91 91 77 Respiratory Rate 18 18 16 Blood Pressure 165/95 H 165/95 H 144/78 H Blood Pressure Mean 118 118 100 Pulse Ox 98 98 94 Oxygen Delivery Method Room Air Room Air Room Air Weight Weight: 104 lb 11.513 oz Body Mass Index (BMI) 19.1 Physical Exam Narrative General: Alert, Oriented x3, Cooperative, No apparent distress HEENT: Atraumatic, PERRLA, EOMI, Normocephalic Oral: Moist Mucosa Neck: Supple, No JVD Lungs: Diminished right base greater than left, Normal air movement, No rhonchi, No wheeze, No rales Cardiovascular: Regular rate, Regular Rhythm, Normal S1, Normal S2, No murmurs Abdomen: Soft, Non Tender, Non-Distended, No Hepato-splenomegaly Extremities: 2+ pitting edema, Capillary Refill Less than 3 Seconds Skin: No rashes, No breakdown Musculoskeletal: No Tenderness to Palpation of Joints or Extremities Neurological: No focal neurological deficits, Motor Exam 5/5 strength throughout, Sensory exam intact to light touch and pain Psych/Mental Status: Normal Affect, Appropriate Results Lab / Micro Data 01/03/24 00:42 01/03/24 00:42 Labs: Laboratory Results - last 24 hr 01/03/24 00:42: WBC 3.9 L, RBC 2.64 L, Hgb 8.1 L, Hct 25.8 L, MCV 97.7, MCH 30.7, MCHC 31.4 L, RDW Std Deviation 56.3 H, RDW Coeff of Shameka 15.9 H, Plt Count 27 L*, MPV TNP, Immature Gran % (Auto) 1.000 H, Neut % (Auto) 90.9 H, Lymph % (Auto) 3.3 L, [place] % (Auto) 4.3, Eos % (Auto) 0.0, Baso % (Auto) 0.5, Absolute Neuts (auto) 3.6, Absolute Lymphs (auto) 0.13 L, Nucleated RBC % 0, Differential Comment SCANNED, Diff Path Review May foll, Platelet Estimate MKD DEC, PT 14.6, INR 1.1, APTT 29.3, Sodium 137, Potassium 4.0, Chloride 103, Carbon Dioxide 28.0, Anion Gap 6, BUN 30 H, Creatinine 1.49 H, Estim Creat Clear Calc 23.71, Est GFR (MDRD) Af Amer 44 L, Est GFR (MDRD) Non-Af 36 L, BUN/Creatinine Ratio 20.1 H, Glucose 477 H*, Calcium 7.4 L 01/03/24 01:50: Urine Color Yellow, Urine Clarity Clear, Urine pH 6.5, Ur Specific [place] 1.010, Urine Protein 30 H, Urine Glucose (UA) 1000 H, Urine Ketones 5 H, Urine Occult Blood 150 H, Urine Nitrite Negative, Urine Bilirubin Negative, Urine Urobilinogen Normal, Ur Leukocyte Esterase 500 H, Urine RBC 0-5 SEEN, Urine WBC 10-25 SEEN, Ur Squamous Epith Cells 0-5 SEEN, Urine Bacteria 3+, Urine Mucus 0 SEEN 01/03/24 03:15: Lactic Acid 1.1 Imaging Radiology Impression Chest CTA 01/03/24 00:20 IMPRESSION: No pulmonary embolism. Moderate right and trace left layering pleural effusion with small amount of pleural air versus adjacent cavitation or bulla at the medial right lower lobe . Associated compressive atelectasis right lower lobe posterior segment. Moderate hiatal hernia. 1.1 cm posterior left lower lobe nodule or atelectasis. 3 month follow-up CT recommended. Electronically Signed: Virgilio Boucher MD at 2:20 EDT Reading Location ID and State: [facility] / [place] Tel , Service support , Assessment & Plan Assessment/Plan (1) Pleural effusion on right: (2) Thrombocytopenia: (3) UTI (urinary tract infection): (4) Acute hyperglycemia: PLAN: Plan 1. Acute thrombocytopenia and hyperglycemia in the setting of up pleural effusion with possible infection as well as a UTI/SKYLA ? Unfortunate will need to stay on the steroids as she is currently on a taper and this was nothing that helped her Keytruda induced diarrhea ? Urine cultures and blood cultures are pending, will continue with IV vancomycin and Zosyn ? She is not currently hypoxic so hopefully with antibiotic treatment this will not turn into an empyema though I did discuss with him the need for transfer to a higher level of care if that were the case ? Her baseline creatinine is around 0.8 and she is currently 1.49 consistent with an SKYLA therefore we will hold off Lasix for her edema and pleural effusion, I also discussed with him the potential for thoracentesis ? Thrombocytopenia and hyperglycemia are both likely combination of reaction to the infection in the setting of cancer as well as her steroids, will continue sign scale insulin and Accu-Cheks ACHS. Will monitor make adjustments as necessary 2. Essential HTN ? Blood pressures are stable ? Continue with metoprolol ? We will monitor make adjustments as necessary 3. Breast cancer with lymph node metastases ? There is no distant metastases currently however she does not tolerate chemotherapy or Keytruda ? They are going to speak with her oncologist on Sunday if she is discharged from the hospital in terms of next steps including the possibility of radiation therapy ? We did discuss the possibility of palliative care which she is open to 4. Gout ? Stable ? Continue with allopurinol 5. GERD ? Stable To continue with PPI DVT: SCDs 75 minutes was spent on direct patient care, including documentation as well as chart review and collaboration with colleagues Charges/Coding Visit Charges Inpatient E&M: 82478 Init Hosp L3
[2024-01-03] MEDS: Vancomycin HCl 750 MG in 0.9% Normal Saline (250mL Bag) 250 ML 250 MG IV (05:06)
[2024-01-03] MEDS: Acetaminophen 325 MG Tablet 650 MG PO ×3 (05:36→17:04)
--- NOTE | 2024-01-03 05:58 | PCM.RX.CS ---
Consult Antibiotic Management Pharmacy has been consulted to manage selected antibiotic: Vancomycin Type of Intervention Type of Consult: New start Labs Labs: Sodium 137 mmol/L (136-145) 01/03/24 00:42 Potassium 4.0 mmol/L (3.5-5.1) 01/03/24 00:42 Chloride 103 mmol/L (98-107) 01/03/24 00:42 Carbon Dioxide 28.0 mmol/L (21.0-32.0) 01/03/24 00:42 Anion Gap 6 (5-15) 01/03/24 00:42 BUN 30 mg/dL (7-18) H 01/03/24 00:42 Creatinine 1.49 mg/dL (0.55-1.02) H 01/03/24 00:42 Est GFR (MDRD) Af Amer 44 mL/min (>60) L 01/03/24 00:42 Est GFR (MDRD) Non-Af 36 mL/min (>60) L 01/03/24 00:42 BUN/Creatinine Ratio 20.1 RATIO (10-20) H 01/03/24 00:42 Glucose 477 mg/dL (74-106) H* 04 00:42 Dosing Weight Weight used for dosin.5 kg Estimated Creatinine Clearance Estimated Creatinine Clearance: 23.7 Goal Trough Goal Trough: 15-20 mcg/mL Pharmacy Plan for Drug Dosing Pharmacy Plan for Drug Dosing: Pharmacy Service will continue to monitor and adjust dosing as required. 750MG IN ER, 500MG Q24H TROUGH PRIOR TO 3RD DOSE Follow-Up Labs Follow-Up Labs: Trough: Vancomycin Date/Time Labs Ordered Labs to be done on [date and time ordered]: 01/04 @ 93819
[2024-01-03 06:28] LABS: Procalcitonin 0.94 ng/mL (0.00-0.09)
[2024-01-03] MEDS: Insulin Lispro 100 UNIT/ML INSULN.PEN SC ×3 (06:36→22:00)
[2024-01-03 08:53] LABS: Absolute Neutrophil Count 4.2 X10^3/uL (2.0-7.7); Eosinophil# 0.01 X10^3/uL; Eosinophils% 0.2 % (0-5); Hematocrit 22.6 % (37-47); Hemoglobin 7.3 g/dL (12.0-15.0); Lymphocyte % 2.3 % (19-41); Mean Corp Hgb Conc 32.3 g/dL (32-36); Mean Corpuscular Hgb 31.7 pg (27.0-32.0); Mean Corpuscular Volume 98.3 fL (81-99); Monocyte# 0.09 X10^3/uL; Monocyte% 2.1 % (0-10); NRBC Flagged by Analyzer 0 % (0-5); Neutrophil # 4.16 X10^3/uL (2.7-7.7); Neutrophil % 95.2 % (47-70); POSITIVE COUNT YES; POSITIVE DIFFERENTIAL YES; POSITIVE MORPHOLOGY YES; RBC Distribution Width CV 15.9 % (11.6-14.6); RBC Distribution Width SD 56.5 fl (35.1-43.9); White Blood Count 4.4 K/mm3 (4.4-11.0)
[2024-01-03 08:57] LABS: Differential Indicated SCAN CRITERIA MET; Platelet Count 29 K/mm3 (150-450)
[2024-01-03] MEDS: Metoprolol Tartrate 25 MG Tablet PO ×2 (09:00→21:55)
[2024-01-03] MEDS: predniSONE 10 MG Tablet 30 MG PO (09:00)
[2024-01-03] MEDS: Pantoprazole Sodium 40 MG Tablet PO ×2 (09:01→21:56)
[2024-01-03] MEDS: Allopurinol 100 MG Tablet PO (09:18)
[2024-01-03 09:39] LABS: Differential Comment SCANNED; Platelet Estimate MKD DEC (ADEQ)
[2024-01-03 09:47] LABS: ALB/GLOB Ratio 0.6 RATIO (0.9-2.4); AST(SGOT) 4 U/L (15-37); Alanine Aminotransfer ALT/SGPT 8 U/L (13-56); Albumin, Serum 1.6 g/dL (3.2-5.0); Alkaline Phosphatase 76 U/L (45-117); Anion Gap 4 (5-15); BUN 27 mg/dL (7-18); BUN/Creat Ratio 19.4 RATIO (10-20); Calcium,Total 7.3 mg/dL (8.5-10.1); Chloride 107 mmol/L (98-107); Creatinine, Serum 1.39 mg/dL (0.55-1.02); EST Glomerular Filtration Rate 39 mL/min (>60); Est Glom Filt Rate - Afr Amer 47 mL/min (>60); Estimated Creatinine Clearance 24.88 ml/min; Globulin 2.9 g/dL (2.2-4.2); Glucose 248 mg/dL (74-106); Potassium 3.8 mmol/L (3.5-5.1); Protein, Total 4.5 g/dL (6.4-8.2); Sodium Level 140 mmol/L (136-145)
[2024-01-03 09:56] LABS: Pathologist Review Reviewed
--- NOTE | 2024-01-03 11:56 | EX.PCM.CONCC ---
Assessment & Plan Assessment/Plan (1) Pleural effusion on right: PLAN: Plan RECOMMENDATIONS: 1. Proceed with ultrasound-guided thoracentesis. 2. Pleural fluid orders have been placed. 3. Continue empiric antibiotics for now. 4. Encourage incentive spirometer use while in bed. 5. Send type and screen. Transfuse if hemoglobin drops below 7 g/dL. IMPRESSIONS: 1. Right-sided pleural effusion CT imaging of the chest demonstrated a moderate right-sided pleural effusion with compressive atelectasis. Given the undifferentiated nature of the pleural effusion, the patient was placed empirically on antimicrobials. While Keytruda can cause a pleural effusion, the patient was only on the medication for a very short period of time. The patient is clinically stable on room air. At this particular time, I recommend proceeding with an ultrasound-guided thoracentesis, which can normally be safely accomplished with platelet counts greater than 25,000. Currently, a repeat CBC is pending. Pleural fluid should be sent for LDH, total protein, cell count, culture, glucose and cytology. Orders have been placed accordingly. 2. Acute kidney injury Potentially prerenal in etiology. Consider obtaining renal ultrasound if no improvement. 3. History of breast CA with pancytopenia/history of gout/GERD/hypertension Complicates care, management, recovery and prognosis. Continue supportive measures as noted above. Recommend transfusing blood products if hemoglobin drops below 7 g/dL. This note was generated with [employer] dictation software. It may contain incorrect words, spelling, and punctuation that were not noted in checking the note before signing. HPI Consult Data Date of Consult: 01/03/24 HPI Narrative Reason for Consultation: Pleural effusion HPI Narrative: The patient is a 78-year-old female, with a history as outlined below, who presented to the emergency department on January 02 with back pain. The patient has a history of breast CA, for which she underwent mastectomy in October, which was then followed by Keytruda initiation. However, the patient developed colitis from the Keytruda and was subsequently placed on a prednisone taper as an outpatient. She has apparently been on corticosteroids now for approximately 1 month. On presentation to the emergency department, the patient was documented to have a temperature of 96.8 ?F. She was otherwise hemodynamically stable and maintaining appropriate oxygen saturations on room air. Laboratory evaluation revealed evidence of pancytopenia with a hemoglobin of 8.1 g/dL and platelet count of 27,000. Coagulation profile was within normal limits. Creatinine was increased at 1.49. Lactate was normal. Urine analysis was notable for leukocyte esterase and 3+ urine bacteria. CTA chest showed no evidence for pulmonary embolism. However, there was a moderate right-sided pleural effusion with compressive atelectasis. The patient did receive IV fluid resuscitation and was placed on empiric antibiotics. She was subsequently admitted to the progressive care unit for further management. Currently, the patient is maintaining appropriate oxygen saturations on room air. She currently denies any shortness of breath. Her repeat hemoglobin was noted to be 7.3 g/dL. Platelet count from this morning was 29,000. [facility] Medical History (Updated 01/03/24 @ 03:[address] Kenneth Blunt, DO) Arthritis Diabetes Difficulty swallowing Diverticular disease Esophageal dysphagia Gastric reflux GERD (gastroesophageal reflux disease) Gout Hiatal hernia History of diverticulitis History of IBS History of kidney stones Hypercholesteremia Hypertension IBS (irritable bowel syndrome) Non-smoker Osteoarthritis Wears glasses Home Medications allopurinol 300 mg tablet 300 mg PO DAILY kidney health 11/06/19 [History Last Taken 08/17/23] vit C 250 mg-vit E 90 mg-zinc 40 mg-copper 1 [id number] capsule (PreserVision AREDS-2) 1 tab PO BID eye health 02/02/23 [History Last Taken 08/17/23] acetaminophen 325 mg tablet 650 mg PO Q6H pain/fever 08/17/23 [History Last Taken Unknown] metoprolol tartrate 25 mg tablet 25 mg PO BID blood pressure 08/17/23 [History Last Taken 08/17/23] prochlorperazine maleate 10 mg tablet (Compazine) 10 mg PO Q6H PRN nausea and vomiting 08/17/23 [History Last Taken Unknown] food supplemt, lactose-reduced (Ensure Clear oral liquid) 120 ml PO 4X/DAY #120 BOTTLES 08/24/23 [Rx Last Taken Unknown] pantoprazole 40 mg tablet,delayed release 40 mg PO BID acid reflux #30 tabs 08/24/23 [Rx Last Taken Unknown] gabapentin 100 mg capsule 100 mg PO QHS 01/03/24 [History Last Taken Unknown] prednisone 10 mg tablet 30 mg PO DAILY 01/03/24 [History Last Taken Unknown] Allergy/AdvReac Type Severity Reaction Status Date / Time diltiazem [From Cardizem] Allergy Mild HIVES Verified 01/03/24 00:02 minoxidil Allergy Mild TACHYCARDIA Verified 01/03/24 00:02 prazosin [From Minipress] AdvReac Other Verified 01/03/24 00:02 Family History Brother Melanoma Prostate cancer Brother Liver cancer Mother , at 85. Congestive heart failure Father , at 64. COPD (chronic obstructive pulmonary disease) Surgical History (Updated 09/02/23 @ 00:01 by Annmarie Palmer) History of breast biopsy History of endometrial biopsy History of esophageal dilatation History of extraction of renal calculus Social History household members: spouse Smoking Status: Never smoker alcohol intake: never substance use type: does not use ROS ROS Narrative 10 systems were reviewed with pertinent positives as noted in the HPI above. Physical Exam Const alert and no apparent distress Constitutional Narrative: Frail, elderly female in no acute distress. General Appearance: cooperative HEENT normocephalic and head/scalp atraumatic Eyes PERRL, EOMs intact bilaterally and conjunctivae normal Neck supple General: trachea midline Chest inspection of chest normal Resp Resp Narrative: Diminished air movement in the right mid and lower lung landry. Dullness to percussion in the right lung base. Cardio regular rate and regular rhythm GI normal to inspection, nondistended, normoactive bowel sounds Extremity no clubbing, cyanosis or edema Skin no rashes or lesions noted Neuro CN's II-XII intact bilaterally and no focal motor deficits Psych cooperative and affect normal Lab / Micro Data 01/03/24 08:35 01/03/24 08:35 Labs: Laboratory Results - last 24 hr 01/03/24 00:42: WBC 3.9 L, RBC 2.64 L, Hgb 8.1 L, Hct 25.8 L, MCV 97.7, MCH 30.7, MCHC 31.4 L, RDW Std Deviation 56.3 H, RDW Coeff of Shameka 15.9 H, Plt Count 27 L*, MPV TNP, Immature Gran % (Auto) 1.000 H, Neut % (Auto) 90.9 H, Lymph % (Auto) 3.3 L, [place] % (Auto) 4.3, Eos % (Auto) 0.0, Baso % (Auto) 0.5, Absolute Neuts (auto) 3.6, Absolute Lymphs (auto) 0.13 L, Nucleated RBC % 0, Differential Comment SCANNED, Diff Path Review Reviewed, Platelet Estimate MKD DEC, PT 14.6, INR 1.1, APTT 29.3, Sodium 137, Potassium 4.0, Chloride 103, Carbon Dioxide 28.0, Anion Gap 6, BUN 30 H, Creatinine 1.49 H, Estim Creat Clear Calc 23.71, Est GFR (MDRD) Af Amer 44 L, Est GFR (MDRD) Non-Af 36 L, BUN/Creatinine Ratio 20.1 H, Glucose 477 H*, Calcium 7.4 L 01/03/24 01:50: Urine Color Yellow, Urine Clarity Clear, Urine pH 6.5, Ur Specific [place] 1.010, Urine Protein 30 H, Urine Glucose (UA) 1000 H, Urine Ketones 5 H, Urine Occult Blood 150 H, Urine Nitrite Negative, Urine Bilirubin Negative, Urine Urobilinogen Normal, Ur Leukocyte Esterase 500 H, Urine RBC 0-5 SEEN, Urine WBC 10-25 SEEN, Ur Squamous Epith Cells 0-5 SEEN, Urine Bacteria 3+, Urine Mucus 0 SEEN 01/03/24 03:15: Lactic Acid 1.1, Procalcitonin 0.94 H 01/03/24 08:35: WBC 4.4, RBC 2.30 L, Hgb 7.3 L, Hct 22.6 L, MCV 98.3, MCH 31.7, MCHC 32.3, RDW Std Deviation 56.5 H, RDW Coeff of Shameka 15.9 H, Plt Count 29 L*, Immature Gran % (Auto) 0.200, Neut % (Auto) 95.2 H, Lymph % (Auto) 2.3 L, [place] % (Auto) 2.1, Eos % (Auto) 0.2, Baso % (Auto) 0.0, Absolute Neuts (auto) 4.2, Absolute Lymphs (auto) 0.10 L, Nucleated RBC % 0, Differential Comment SCANNED, Diff Path Review May , Platelet Estimate MKD DEC, Sodium 140, Potassium 3.8, Chloride 107, Carbon Dioxide 29.0, Anion Gap 4 L, BUN 27 H, Creatinine 1.39 H, Estim Creat Clear Calc 24.88, Est GFR (MDRD) Af Amer 47 L, Est GFR (MDRD) Non-Af 39 L, BUN/Creatinine Ratio 19.4, Glucose 248 H, Calcium 7.3 L, Total Bilirubin 0.80, AST 4 L, ALT 8 L, Alkaline Phosphatase 76, Total Protein 4.5 L, Albumin 1.6 L, Globulin 2.9, Albumin/Globulin Ratio 0.6 L Imaging Radiology Impression Chest CTA 01/03/24 00:20 IMPRESSION: No pulmonary embolism. Moderate right and trace left layering pleural effusion with small amount of pleural air versus adjacent cavitation or bulla at the medial right lower lobe . Associated compressive atelectasis right lower lobe posterior segment. Moderate hiatal hernia. 1.1 cm posterior left lower lobe nodule or atelectasis. 3 month follow-up CT recommended. Electronically Signed: Virgilio Boucher MD at 2:20 EDT , Charges/Coding Visit Charges Inpatient E&M: 64116 Init Hosp L3
[2024-01-03 13:00] LABS: ALB/GLOB Ratio 0.6 RATIO (0.9-2.4); Globulin 2.9 g/dL (2.2-4.2); LDH 149 U/L (84-246); Protein, Total 4.5 g/dL (6.4-8.2)
[2024-01-03 13:02] LABS: Hemoglobin 7.3 g/dL (12.0-15.0); Mean Corp Hgb Conc 31.7 g/dL (32-36); Mean Corpuscular Hgb 31.3 pg (27.0-32.0); Mean Corpuscular Volume 98.7 fL (81-99); POSITIVE COUNT YES; RBC Distribution Width SD 58.3 fl (35.1-43.9); Red Blood Count 2.33 M/mm3 (4.2-5.4); White Blood Count 5.2 K/mm3 (4.4-11.0)
[2024-01-03 13:06] LABS: Platelet Count 29 K/mm3 (150-450); Scan Indicated on CBC? Y/N YES- FLAGS NOTED
[2024-01-03 13:27] LABS: Differential Comment SCANNED
[2024-01-03] MEDS: Lidocaine 2% (20 ml mdv) 20 ML Vial INFILT (13:29)
--- NOTE | 2024-01-03 13:35 | RAD_ITS ---
STUDY: X-RAY CHEST REASON FOR EXAM: Female, 78 years old. Post thoracentesis TECHNIQUE: AP inspiration and expiration views. COMPARISON: Comparison is made with prior study dated November 11, 2019. FINDINGS: A right-sided portacatheter is seen with the tip in the right atrium. The patient is status post right thoracentesis. No evidence of pneumothorax. Residual right pleural-parenchymal changes persist. RAD/Chest Insp/Exp 2 View IMPRESSION: No evidence of pneumothorax on the immediate post right thoracentesis. Residual right pleural-parenchymal changes persist. Electronically Signed: Tim Tavera MD at 14:11 EDT ,
--- NOTE | 2024-01-03 13:46 | PRO.PCM_ITS ---
Procedure Report Date of Procedure: 01/03/24 Assessment & Plan Assessment/Plan (1) Pleural effusion on right: PLAN: PROCEDURE: Ultrasound Guided Thoracentesis ORDERING PROVIDER: Dr. Shaquille Daily INDICATION: Female, 78 years old. Right pleural effusion. PROVIDER: LISANDRA Gore PROCEDURE: The risks, benefits, and alternatives to the procedure were explained to the patient. The specific risks of bleeding, infection, and pneumothorax requiring chest tube insertion were discussed and accepted. Written informed consent was obtained. The patient was placed in the sitting, upright position. Ultrasonographic evaluation of the bilateral lower pleural spaces was carried out. Despite significant loculation of the effusion, an adequate pocket was identified in the right lower pleural space.The overlying skin was prepped and draped in sterile fashion. 2% lidocaine was administered subcutaneously for local anesthesia. Under ultrasound guidance, a 5-Irish thoracentesis needle/catheter system was advanced into the right posterior lower pleural fluid collection. 260 ml of cloudy yellow colored fluid was drained. 100 mL of this fluid was collected and sent to the laboratory for analysis. The catheter was removed, and a sterile dressing was applied. The patient tolerated the procedure well. A chest x-ray was ordered. IMPRESSION: Successful ultrasound-guided thoracentesis of right pleural effusion. Procedures Radiology Radiology US Procedures: 80372 Thoracentesis
[2024-01-03 13:49] LABS: Cytology, Body Fluid / CSF SEE PATHOLOGY REPORT
[2024-01-03 13:51] LABS: Bedside Glucose 331 mg/dL (74-106)
[2024-01-03 13:51] LABS: Bedside Glucose 309 mg/dL (74-106)
[2024-01-03 13:51] LABS: Bedside Glucose 273 mg/dL (74-106)
[2024-01-03] MEDS: oxyCODONE 5 MG Tablet PO ×2 (13:58→18:23)
[2024-01-03 14:03] LABS: Body Fluid Mononuclear WBC # 1.454 10^3/uL; Body Fluid Mononuclear WBC % 7.4 %; Body Fluid Polynuclear WBC # 18.062 10^3/uL; Body Fluid Polynuclear WBC % 92.6 %
[2024-01-03 14:32] LABS: Glucose, Body Fluid 230 mg/dL (40-70); LDH,Body Fluid 239 Units/L (Not Establ.); Protein, Body Fluid 2.1 g/dL (Not Establ.)
--- NOTE | 2024-01-03 14:40 | CASEMGMT ---
RN?CM?PROCEDURES RN?CM?to room to meet with patient for initial transition planning/care coordination?assessment.?RN?CM?introduced self and role at [facility].? Pt voices understanding and consents to?assessment?at this time.? Pt resting in bed in no distress at this time.? @ bedside. Pt awake initially and able to answer most questions but she did fall asleep while RN CM in room. provided most of the following info.? Care providers, pharmacy, and demographics verified/updated at this time. PCP: Dr Menezes Specialists: Dr Degroot--oncologist @ [facility]/[place]. Dr Lowe-surgeon/[facility] Preferred Pharmacy: [facility] Insurance: [employer], [employer] Prescription Benefit:?yes Living Will/HPOA:?Per , pt has completed both LW and HCPOA, which is her . He states son, Ted, and dtr, Becky, listed as alternatives. LNOK: , Toy. SonTed. Dtr, Becky Living Arrangements: Lives w/her in one-story home w/4 steps w/railing to enter. states pt was doing okay with the stairs, until yesterday, stating someone needed to carry her down the stairs. When pt @ her baseline, she is able to dress herself mostly, except he does assist her w/compression socks. assists w/showering, prepares meals, and does home mgnt tasks. Transportation:?Pt has not driven for about a year. provides transportation. DME: has the following DME: shower chair, BSC that is used over the commode for use of siderails, grab bars, rollator, pulse ox, BP machine. ? states no need for further DME at this time.? HHC/SNF: Pt was @ [facility] RU 08/2023. She is currently active w/[facility] for SN and therapy, per . states they wish for pt to return home @ discharge. Inquired if they would like to resume /[facility] or if they would like list of other HHC options. He asked FELECIA HEWITT to talk w/Becky zamora, and for her to make that decision. Call placed to Becky and she states to do JENNA w/[facility] HHC at this time and declines wanting list of other HHC options. ROBERTO Moon RN CM, made aware. Palliative care: Noted in Dr Hutson note that he spoke w/pt and and they are open to Palliative referral. RN CM spoke w/both and pt and questions answered. They are both agreeable to a referral. ROEBRTO Moon RN, CM, made aware. Pt and wish for pt to return home and state no further discharge planning/needs/concerns at this time? Advised them to ask for?CM?if any further questions/concerns/needs arise.? They voice understanding. PLAN:??Home w/JENNA w/[facility] Pallative referral. Roxi MARTEN?RN?CM
[2024-01-03 14:48] LABS: Appearance/Body Fluid CLOUDY; Auto B Fluid Analyzer BKGD Ct COUNTS W/IN LIMITS (W/IN LIMITS); Color/Body Fluid YELLOW; Source- Body Fluid THORACENTESIS
[2024-01-03 14:56] LABS: Red Cell Count/Body Fluid 256 /mm3
[2024-01-03 15:11] LABS: Monocytes 10 %; Neutrophil (Segs) 81 %
[2024-01-03 15:12] LABS: Body Fluid QC Type(s) BF1Q; Mesothelial Cells 9 %
--- NOTE | 2024-01-03 16:16 | PCM.HOSP.N ---
Hospitalist Note Patient admitted early this morning with sudden onset of upper back pain. CTA chest done in the ED showed a moderate right pleural effusion with suspected pneumonia concerning for pneumonia with parapneumonic effusion. UA was also consistent with a UTI. Saw patient at the bedside later this morning. At that time, she was sitting up fairly comfortably in bed, conversing normally and in no acute distress. She did report mild upper back pain currently, improved at rest. She had not been out of bed since coming over to the floor. She denied any fevers or chills. Denied any other pain or discomfort. She was breathing comfortably on room air and was hemodynamically stable. Dr. Daily with Pulmonology evaluated the patient later this morning and recommended that patient have a thoracentesis done for further evaluation of the pleural effusion. Had thoracentesis done with IR this afternoon, with 260 cc of fluid removed. Fluid studies consistent with an exudative effusion that seems most likely to be a parapneumonic effusion. The lab also called to note that the blood culture taken from patient's chemotherapy port is preliminarily positive for gram-negative rods. Would suspect either a urinary or possible pneumonia source for the bacteremia. Will continue IV vancomycin and Zosyn for now, follow-up blood culture speciation and sensitivities as well as body fluid cultures from the thoracentesis. Patient notably has a persistent thrombocytopenia with platelet count 27-29 on 3 checks today. Has no previous history of thrombocytopenia when looking back at labs from [facility] that are in [facility]. Seems most likely that this thrombocytopenia is secondary to sepsis. Notably patient's hemoglobin is stable around 7.3-8.1, which is close to her baseline. No active signs of bleeding. Will follow-up a.m. CBC and if platelet count continues to be very low, will consider Hematology consult. Full progress note to follow tomorrow.
[2024-01-03 17:32] LABS: Bedside Glucose 146 mg/dL (74-106)
[2024-01-03] MEDS: Menthol/Lanolin/Calamine/Znox 113 GM Tube 1 APPLIC TOPICAL (21:54)
[2024-01-03] MEDS: Gabapentin 100 MG Capsule PO (22:07)
[2024-01-03 22:42] LABS: Bedside Glucose 193 mg/dL (74-106)
[2024-01-04] VITALS (28 sets, daily range): BP systolic 68–132; BP diastolic 22–69; PULSE 68–96; RESP 13–22; TEMP 36.2–36.8; O2SAT 80–98
[2024-01-04] MEDS: oxyCODONE 5 MG Tablet PO ×2 (02:54→07:50)
[2024-01-04] MEDS: Vancomycin IV 500 MG/100 ML BAG 100 MG IV (04:50)
[2024-01-04 06:18] LABS: Hematocrit 25.6 % (37-47); Mean Corp Hgb Conc 31.3 g/dL (32-36); Mean Corpuscular Volume 99.2 fL (81-99); POSITIVE COUNT YES; RBC Distribution Width CV 16.1 % (11.6-14.6); RBC Distribution Width SD 58.6 fl (35.1-43.9); Red Blood Count 2.58 M/mm3 (4.2-5.4); White Blood Count 2.6 K/mm3 (4.4-11.0)
[2024-01-04 06:21] LABS: Platelet Count 29 K/mm3 (150-450); Scan Indicated on CBC? Y/N YES- FLAGS NOTED
[2024-01-04] MEDS: Acetaminophen 325 MG Tablet 650 MG PO (06:30)
[2024-01-04] MEDS: Piperacil/Tazobactam 3.375 GM in 0.9% Normal Saline (50mL MB+) 50 ML IV ×3 (06:31→21:58)
[2024-01-04] MEDS: Menthol/Lanolin/Calamine/Znox 113 GM Tube 1 APPLIC TOPICAL ×3 (06:31→21:26)
[2024-01-04] MEDS: Insulin Lispro 100 UNIT/ML INSULN.PEN SC ×3 (06:40→16:02)
[2024-01-04 06:52] LABS: Anion Gap 8 (5-15); BUN 34 mg/dL (7-18); BUN/Creat Ratio 19.3 RATIO (10-20); Calcium,Total 7.7 mg/dL (8.5-10.1); Chloride 104 mmol/L (98-107); Creatinine, Serum 1.76 mg/dL (0.55-1.02); EST Glomerular Filtration Rate 30 mL/min (>60); Est Glom Filt Rate - Afr Amer 36 mL/min (>60); Estimated Creatinine Clearance 19.65 ml/min; Glucose 223 mg/dL (74-106); Potassium 4.5 mmol/L (3.5-5.1); Sodium Level 139 mmol/L (136-145)
[2024-01-04 07:12] LABS: Bedside Glucose 186 mg/dL (74-106)
--- NOTE | 2024-01-04 07:44 | US_ITS ---
STUDY: RENAL ULTRASOUND - COMPLETE REASON FOR EXAM: Female, 78 years old. Worsening SKYLA, r/o urinary retention TECHNIQUE: Ultrasound evaluation of the kidneys was performed with real-time and static fang-scale imaging. COMPARISON: None. FINDINGS: RIGHT KIDNEY: Normal location of the right kidney, which is normal in size. The right kidney measures 9 cm x 4.8 cm x 4.1 cm. There is a normal cortex of the right kidney. The renal cortex measures 1 cm. There is no right renal mass or cyst. There are no right renal calculi. There is mild hydronephrosis of the right kidney. DISTAL RIGHT URETER: There is non-visualization of the distal right ureter. There is no demonstrated right ureterovesical junction calculus. There is no demonstrated right ureteral jet. LEFT KIDNEY: Normal location of the left kidney, which is normal in size. The left kidney measures 9.8 cm x 4.4 cm x 3.9 cm. There is a normal cortex of the left kidney. The renal cortex measures 1.0 cm. There is no left renal mass or cyst. There are no left renal calculi. There is no left hydronephrosis. DISTAL LEFT URETER: There is non-visualization of the distal left ureter. There is no demonstrated left ureterovesical junction calculus. There is a visualized left ureteral jet. BLADDER: The distended urinary bladder has a volume of 54.6 ml. The empty urinary bladder has a volume of 70.3 ml. There is a normal wall thickness of the distended urinary bladder. There is no demonstrated mass within the urinary bladder. There are no demonstrated bladder calculi. US/Kidney and Bladder IMPRESSION: Mild right hydronephrosis. Patient is unable to empty the bladder. Electronically Signed: Tim Tavera MD at 9:48 EDT ,
[2024-01-04] MEDS: Pantoprazole Sodium 40 MG Tablet PO (07:50)
[2024-01-04] MEDS: Allopurinol 100 MG Tablet PO (07:51)
[2024-01-04] MEDS: predniSONE 10 MG Tablet 30 MG PO (07:51)
[2024-01-04] MEDS: Lactated Ringers 1,000 ML 200 ML IV ×3 (09:19→16:01)
--- NOTE | 2024-01-04 11:30 | PCM.PN.HOSP ---
Reason for Visit Reason for Visit: Diagnoses Thrombocytopenia, unspecified (01/03/24) Pleural effusion, not elsewhere classified (01/03/24) Urinary tract infection, site not specified (01/03/24) Hyperglycemia, unspecified (01/03/24) Subjective Subjective No acute events overnight. Patient seen at bedside this morning, present. Patient did appear more fatigued this morning yesterday. Was laying back in bed, making appropriate eye contact but only providing short responses to questions. She denied any chest pain or shortness of breath at this time, though she was noted to have somewhat shallow breathing during my encounter. She denied any significant back pain. She did note that she had not been peeing much at all since she got here. She otherwise denied any fevers or chills. Denied any cough or sputum production. No other acute concerns. Objective Data Objective Data Vital Signs: Vital Signs Temp Pulse Resp BP Pulse Ox O2 Del Method O2 Flow Rate 97.8 F 88 20 H 94/63 94 Nasal Cannula 2 01/04/24 08:16 01/04/24 08:16 01/04/24 08:16 01/04/24 08:24 01/04/24 08:16 01/04/24 08:18 01/04/24 08:18 Oxygen Flow Rate (L/min) 2 Oxygen Delivery Method Nasal Cannula Weight: 46.5 kg Body Mass Index (BMI) 18.1 Intake & Output: Intake and Output for Last 24 Hours 01/02/24 01/03/24 01/04/24 23:59 23:59 23:59 Intake Total 1255 / 1355 540 / 540 Output Total 260 / 260 300 / 300 Balance 995 / 1095 240 / 240 Lab / Micro Data 01/04/24 06:10 01/04/24 06:10 Labs: Laboratory Results - last 24 hr 01/03/24 06:31: POC Glucose 331 H 01/03/24 08:35: Lactate Dehydrogenase 149, Total Protein 4.5 L, Globulin 2.9, Albumin/Globulin Ratio 0.6 L 01/03/24 09:10: POC Glucose 273 H 01/03/24 11:46: POC Glucose 309 H 01/03/24 12:45: WBC 5.2, RBC 2.33 L, Hgb 7.3 L, Hct 23.0 L, MCV 98.7, MCH 31.3, MCHC 31.7 L, RDW Std Deviation 58.3 H, RDW Coeff of Shameka 16.0 H, Plt Count 29 L*, MPV TNP, Differential Comment SCANNED, Diff Path Review January enrique, Blood Type A POSITIVE, Antibody Screen NEGATIVE 01/03/24 13:44: Fluid Source THORACENTESIS, Fluid Color YELLOW, Fluid Appearance CLOUDY, Fluid WBC 18.450, Fluid RBC 256, Fluid Tot Cell Count 18.470 H, Fld Polynuclear WBCs # 18.062, Fld Polynuclear WBCs % 92.6, Fluid Mononuclear WBCs 1.454, Fld Mononuclear WBCs % 7.4, Fluid Neutrophils 81, Fluid Monocytes 10, Fld Mesothelial Cells 9, Fl Pathologist Comment May follow, Fluid Comment 2 SEE COMMENT 01/03/24 13:47: Fluid Glucose 230 H, Fluid Total Protein 2.1, Fluid LDH 239 01/03/24 17:01: POC Glucose 146 H 01/03/24 21:59: POC Glucose 193 H 01/04/24 06:10: WBC 2.6 L, RBC 2.58 L, Hgb 8.0 L, Hct 25.6 L, MCV 99.2 H, MCH 31.0, MCHC 31.3 L, RDW Std Deviation 58.6 H, RDW Coeff of Shameka 16.1 H, Plt Count 29 L*, MPV TNP, Differential Comment , Diff Path Review May enrique, Sodium 139, Potassium 4.5, Chloride 104, Carbon Dioxide 27.0, Anion Gap 8, BUN 34 H, Creatinine 1.76 H, Estim Creat Clear Calc 19.65, Est GFR (MDRD) Af Amer 36 L, Est GFR (MDRD) Non-Af 30 L, BUN/Creatinine Ratio 19.3, Glucose 223 H, Calcium 7.7 L 01/04/24 06:40: POC Glucose 186 H Micro: Microbiology 01/03/24 13:45 Fluid - Thoracentesis Fluid Gram Stain - Final 01/03/24 13:45 Fluid - Thoracentesis Fluid Body Fluid Culture - Preliminary No growth-Final to follow 01/03/24 01:50 Urine, Clean Catch Urine Culture - Preliminary Gram negative deni 01/03/24 03:15 Blood Culture (Wb) - Port Blood Culture - Preliminary Gram negative deni Radiography Diagnostic Testing: Radiology Impression Chest X-Ray 01/03/24 13:35 IMPRESSION: No evidence of pneumothorax on the immediate post right thoracentesis. Residual right pleural-parenchymal changes persist. Electronically Signed: Tim Tavera MD at 14:11 EDT , Renal Ultrasound 01/04/24 07:44 IMPRESSION: Mild right hydronephrosis. Patient is unable to empty the bladder. Electronically Signed: Tim Tavera MD at 9:48 EDT , Physical Exam Const alert and no apparent distress Constitutional Narrative: Pleasant elderly female, thin appearing, moderately fatigued, laying back in bed fairly comfortably, making appropriate eye contact but answering with only short appropriate responses. No acute distress. General Appearance: cooperative and comfortable HEENT normocephalic, head/scalp atraumatic, hearing grossly normal bilaterally and nasal mucous membranes and turbinates normal Eyes PERRL, EOMs intact bilaterally and conjunctivae normal Neck full ROM Chest inspection of chest normal Resp Resp Narrative: Shallow breaths noted. Otherwise good air movement bilaterally in upper airways, mild decreased breath sounds in right base noted. No wheezing or crackles noted. Cardio regular rate, regular rhythm, no murmurs and peripheral pulses 2+ throughout GI normal to inspection, nondistended, normoactive bowel sounds, soft to palpation, non-tender and non-distended Back/Spine normal ROM Extremity normal to inspection, full ROM and no pedal edema Skin no rashes or lesions noted Neuro no focal motor deficits and no sensory deficits noted Speech: speech normal Psych mental status grossly normal Assessment & Plan Assessment/Plan (1) Thrombocytopenia: (2) Parapneumonic effusion: (3) Bacteremia due to Gram-negative bacteria: (4) Breast cancer: QUALIFIERS: Breast location: unspecified site of breast Estrogen receptor status: negative Patient sex: female Laterality: left Qualified Code(s): C50.912 - Malignant neoplasm of unspecified site of left female breast; Z17.1 - Estrogen receptor negative status [ER-] (5) UTI (urinary tract infection): (6) Sepsis without septic shock: PLAN: Plan Patient is a 78-year-old female who presented to [facility] ED on 01/03/2024 with sudden onset of upper back pain. 1. Sepsis without shock suspected secondary to gram-negative bacteremia due to UTI ? Infectious disease following. Blood culture from chemotherapy port from 01/02 positive for gram-negative rods, urine culture also positive for gram-negative rods. Follow-up speciation and sensitivities. Per ID, can continue treatment with IV vancomycin and Zosyn for now. Patient with hypotension and worsening SKYLA on 01/03 concerning for sepsis due to bacteremia. Gave 1400 ml of LR on 01/03, essentially 30 cc/kg as patient has a fairly low BMI. Remains mildly hypotensive in the 90s over 50s but suspect patient also runs somewhat low at baseline. Repeat blood cultures ordered per ID. Can consider giving gentle IV fluids as needed going forward. 2. Right sided pneumonia with suspected parapneumonic effusion, mild hypoxia ? Pulmonology and ID following. CTA chest on admit showed moderate right pleural effusion with concern for right lower lobe pneumonia. S/p thoracentesis done by radiology on 01/02 with 260 cc of fluid removed, fluid studies consistent with parapneumonic effusion. MRSA probe pending. Per ID, okay to continue treatment with vancomycin and Zosyn for now. 3. SKYLA ? Nephrology following. Creatinine 1.49 on admit, baseline creatinine appears to be around 0.8-0.9. Initially with mild proven to 1.39 but then worsened on hospital day 2 to 1.76. Renal ultrasound without hydronephrosis. Has had decreased urine output. Nephrology suspects multifactorial with component of SKYLA due to volume dilution, possible ATN from sepsis and also possible nephritis from recent immunotherapy that caused colitis as noted below. Trend BMP and urine output daily. Okay to continue prednisone at current dose, unfortunately ongoing bacteremia precludes aggressive steroid regimen. Treating sepsis as noted above. 4. New onset thrombocytopenia; worsening leukopenia; stable anemia ? Hematology/oncology following. Platelet count 27 on admit, has remained stable around 30 during hospitalization. This is a new thrombocytopenia, platelet count has always been above 150 on review of previous records. Per Heme/Onc, most likely cause seems to be sepsis. WBC count 3.9 on admit, improved to 5.2 but dropped again to 2.6 on 01/03. Hemoglobin has remained stable around 7-8, which is at the patient's baseline. Per Heme/Onc, continue treatment of sepsis as noted above. Can transfuse PRBCs for hemoglobin less than 7, and could consider platelet transfusion if platelet count was to drop to less than 10,000. Monitor daily CBC. 5. 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 Diagnosed in mid 2022, has been following with [facility]. Dr. Brady with Hematology/Oncology following here, see his note from 01/03 for further details. In short, she received neoadjuvant therapy with Keytruda, Taxol carboplatin followed by Adriamycin, Cytoxan and Keytruda. She then underwent left mastectomy and axillary dissection on 11/05/2023, tolerated this without issue. 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 Was on high-dose steroids and now on steroid taper. Okay to continue prednisone 30 mg daily for now. 6. Suspected malnutrition ? BMI 18.2 on admit. Nutrition following. 7. Debility ? PT/OT/case management following. 8. Hyperglycemia ? No diagnosis today of diabetes, presume that hypoglycemia is secondary to recent steroids and worsened by active infection. Continue sliding scale insulin with meals as needed for now. 9. Upper back pain, improving ? Suspected secondary to pneumonia with parapneumonic effusion. CTA chest on admit showed no osseous abnormalities. Continue with Tylenol, oxycodone and Dilaudid as needed for pain control. Chronic medical conditions: ? GERD: Stable. Continue home PPI. ? Neuropathy: Continue home gabapentin. ? History of gout: Continue home allopurinol at reduced dose due to SKYLA. DVT prophylaxis: SCDs CODE STATUS: DNR CCA, DNI Expected disposition: TBD Total clinical time spent by myself addressing the patient's medical issues, reviewing all the data, and collaborating with patient's care team: 50 minutes. Charges/Coding Visit Charges Inpatient E&M: 47468 Subs Hosp L3
[2024-01-04 11:57] LABS: Bedside Glucose 174 mg/dL (74-106)
--- NOTE | 2024-01-04 12:00 | CON.PCM.ID_ITS ---
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 Ucx also with GNR. Treating as well for parapneumonic effusion. Tap done 01/02. Cont vanc/zosyn. UAgs neg. Will check MRSA nares screen, repeat bcx x2, and sputum cx if she's able to produce anything. Will follow, thank you (3) Parapneumonic effusion: HPI Consult Data Date of Consult: 01/04/24 HPI Narrative Reason for Consultation: bacteremia HPI Narrative: JENNA TERAN, is a 78 F with port in place, on keytruda for breast cancer, recent admit with dehydration and SKYLA due to diarrhea. Came to ED 01/02 with acute onset back pain, found to have uti and pleural effusion. Admitted on van c/zosyn. Seen by pulm, had thora done 01/02. Feeling a little better. No further pain. reports she had cough with sputum last week. No fever or chills. No issues with port. Denies abd pain or dysuria. Full ROS performed and neg except as noted above. [facility] Medical History Arthritis Diabetes Difficulty swallowing Diverticular disease Esophageal dysphagia Gastric reflux GERD (gastroesophageal reflux disease) Gout Hiatal hernia History of diverticulitis History of IBS History of kidney stones Hypercholesteremia Hypertension IBS (irritable bowel syndrome) Non-smoker Osteoarthritis Wears glasses Home Medications allopurinol 300 mg tablet 300 mg PO DAILY kidney health 11/06/19 [History Last Taken 08/17/23] vit C 250 mg-vit E 90 mg-zinc 40 mg-copper 1 [id number] capsule (PreserVision AREDS-2) 1 tab PO BID eye health 02/02/23 [History Last Taken 08/17/23] acetaminophen 325 mg tablet 650 mg PO Q6H PRN pain/fever 08/17/23 [History Last Taken Unknown] metoprolol tartrate 25 mg tablet 25 mg PO BID blood pressure 08/17/23 [History Last Taken 08/17/23] prochlorperazine maleate 10 mg tablet (Compazine) 10 mg PO Q6H PRN nausea and vomiting 08/17/23 [History Last Taken Unknown] food supplemt, lactose-reduced (Ensure Clear oral liquid) 120 ml PO 4X/DAY #120 BOTTLES 08/24/23 [Rx Last Taken Unknown] pantoprazole 40 mg tablet,delayed release 40 mg PO BID acid reflux #30 tabs 08/24/23 [Rx Last Taken Unknown] gabapentin 100 mg capsule 100 mg PO QHS 01/03/24 [History Last Taken Unknown] prednisone 10 mg tablet 30 mg PO DAILY as directed 01/03/24 [History Last Taken Unknown] Allergy/AdvReac Type Severity Reaction Status Date / Time diltiazem [From Cardizem] Allergy Mild HIVES Verified 01/03/24 00:02 minoxidil Allergy Mild TACHYCARDIA Verified 01/03/24 00:02 prazosin [From Minipress] AdvReac Other Verified 01/03/24 00:02 Family History Brother Melanoma Prostate cancer Brother Liver cancer Mother , at 85. Congestive heart failure Father , at 64. COPD (chronic obstructive pulmonary disease) Surgical History (Updated 09/02/23 @ 00:01 by Annmarie Palmer) History of breast biopsy History of endometrial biopsy History of esophageal dilatation History of extraction of renal calculus Social History household members: spouse Smoking Status: Never smoker alcohol intake: never substance use type: does not use Physical Exam Const alert and no apparent distress General Appearance: cooperative HEENT normocephalic and head/scalp atraumatic Eyes PERRL and EOMs intact bilaterally Neck supple and No nodes Resp clear to auscultation bilaterally Auscultation: diminished lung sounds Cardio regular rate and regular rhythm GI soft to palpation, non-tender and non-distended Skin no rashes or lesions noted Neuro CN's II-XII intact bilaterally Lab / Micro Data Attestation: I reviewed the patient's lab results. 01/04/24 06:10 01/04/24 06:10 Labs: Laboratory Results - last 24 hr 01/03/24 06:31: POC Glucose 331 H 01/03/24 08:35: Lactate Dehydrogenase 149, Total Protein 4.5 L, Globulin 2.9, Albumin/Globulin Ratio 0.6 L 01/03/24 09:10: POC Glucose 273 H 01/03/24 11:46: POC Glucose 309 H 01/03/24 12:45: WBC 5.2, RBC 2.33 L, Hgb 7.3 L, Hct 23.0 L, MCV 98.7, MCH 31.3, MCHC 31.7 L, RDW Std Deviation 58.3 H, RDW Coeff of Shameka 16.0 H, Plt Count 29 L*, MPV TNP, Differential Comment SCANNED, Diff Path Review May enrique, Blood Type A POSITIVE, Antibody Screen NEGATIVE 01/03/24 13:44: Fluid Source THORACENTESIS, Fluid Color YELLOW, Fluid Appearance CLOUDY, Fluid WBC 18.450, Fluid RBC 256, Fluid Tot Cell Count 18.470 H, Fld Polynuclear WBCs # 18.062, Fld Polynuclear WBCs % 92.6, Fluid Mononuclear WBCs 1.454, Fld Mononuclear WBCs % 7.4, Fluid Neutrophils 81, Fluid Monocytes 10, Fld Mesothelial Cells 9, Fl Pathologist Comment May follow, Fluid Comment 2 SEE COMMENT 01/03/24 13:47: Fluid Glucose 230 H, Fluid Total Protein 2.1, Fluid LDH 239 01/03/24 17:01: POC Glucose 146 H 01/03/24 21:59: POC Glucose 193 H 01/04/24 06:10: WBC 2.6 L, RBC 2.58 L, Hgb 8.0 L, Hct 25.6 L, MCV 99.2 H, MCH 31.0, MCHC 31.3 L, RDW Std Deviation 58.6 H, RDW Coeff of Shameka 16.1 H, Plt Count 29 L*, MPV TNP, Differential Comment , Diff Path Review May enrique, Sodium 139, Potassium 4.5, Chloride 104, Carbon Dioxide 27.0, Anion Gap 8, BUN 34 H, Creat inine 1.76 H, Estim Creat Clear Calc 19.65, Est GFR (MDRD) Af Amer 36 L, Est GFR (MDRD) Non-Af 30 L, BUN/Creatinine Ratio 19.3, Glucose 223 H, Calcium 7.7 L 01/04/24 06:40: POC Glucose 186 H 01/04/24 11:33: POC Glucose 174 H Micro: Microbiology 01/03/24 13:45 Fluid - Thoracentesis Fluid Gram Stain - Final 01/03/24 13:45 Fluid - Thoracentesis Fluid Body Fluid Culture - Preliminary No growth-Final to follow 01/03/24 01:50 Urine, Clean Catch Urine Culture - Preliminary Gram negative deni 01/03/24 03:15 Blood Culture (Wb) - Port Blood Culture - Preliminary Gram negative deni Imaging Radiology Impression Chest X-Ray 01/03/24 13:35 IMPRESSION: No evidence of pneumothorax on the immediate post right thoracentesis. Residual right pleural-parenchymal changes persist. Electronically Signed: Tim Tavera MD at 14:11 EDT , Renal Ultrasound 01/04/24 07:44 IMPRESSION: Mild right hydronephrosis. Patient is unable to empty the bladder. Electronically Signed: Tim Tavera MD at 9:48 EDT ,
--- NOTE | 2024-01-04 13:42 | ONC.CONSULT ---
Assessment & Plan Assessment/Plan (1) Thrombocytopenia: Status: Acute Code(s): D69.6 - Thrombocytopenia, unspecified Plan: May be related to the Gram negative sepsis. Suggest management of sepsis, PLT will improve with management of sepsis. If PLT drops below 10K, she can be transfused. Will not follow further on this admission. (2) Breast cancer: Status: Acute Code(s): C50.919 - Malignant neoplasm of unspecified site of unspecified female breast Qualifiers: Breast location: unspecified site of breast Estrogen receptor status: negative Patient sex: female Laterality: left Qualified Code(s): C50.912 - Malignant neoplasm of unspecified site of left female breast; Z17.1 - Estrogen receptor negative status [ER-] Plan: There is no clinical evidence of disease. To do observation while on admission. She should follow up with Primary Oncologist on discharge. HPI Consult Data Date of Service:: 01/04/24 PCP / Referring Provider: Dr. Edgar Menezes DO Attending: Dr. Bruce Fuller DO Chief Complaint Chief Complaint: Asked to see Pt for thrombocytopenia History of Present Illness History of Present Illness: 78-year-old woman was admitted on 01/03/2024 with UTI, right pleural effusion, SKYLA and thrombocytopenia. She has a history of stage III left breast lobular carcinoma, ER/ IL/ HER2 negative diagnosed on 03/14/2023 at [facility]. She received neoadjuvant therapy with Keytruda, Taxol and carboplatin followed by Adriamycin, Cytoxan and Keytruda. She underwent left mastectomy and axillary dissection on 11/05/2023. She was started on adjuvant Keytruda, first dose was on 11/26/2023. 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 She developed general weakness and was brought to the ER where she was found to have a platelet count of 27 K, thought to have UTI and started on broad-spectrum antibiotics vancomycin and Zosyn. Advanced Directives Power of Corporate Director Of Human Resources: Yes Living Will: Yes [facility] Medical History (Updated 01/04/24 @ 14:[address] Nickolas Brady MD) Arthritis Diabetes Difficulty swallowing Diverticular disease Esophageal dysphagia Gastric reflux GERD (gastroesophageal reflux disease) Gout Hiatal hernia History of diverticulitis History of IBS History of kidney stones Hypercholesteremia Hypertension IBS (irritable bowel syndrome) Non-smoker Osteoarthritis Thrombocytopenia Wears glasses Home Medications allopurinol 300 mg tablet 300 mg PO DAILY kidney health 11/06/19 [History Last Taken 08/17/23] vit C 250 mg-vit E 90 mg-zinc 40 mg-copper 1 [id number] capsule (PreserVision AREDS-2) 1 tab PO BID eye health 02/02/23 [History Last Taken 08/17/23] acetaminophen 325 mg tablet 650 mg PO Q6H PRN pain/fever 08/17/23 [History Last Taken Unknown] metoprolol tartrate 25 mg tablet 25 mg PO BID blood pressure 08/17/23 [History Last Taken 08/17/23] prochlorperazine maleate 10 mg tablet (Compazine) 10 mg PO Q6H PRN nausea and vomiting 08/17/23 [History Last Taken Unknown] food supplemt, lactose-reduced (Ensure Clear oral liquid) 120 ml PO 4X/DAY #120 BOTTLES 08/24/23 [Rx Last Taken Unknown] pantoprazole 40 mg tablet,delayed release 40 mg PO BID acid reflux #30 tabs 08/24/23 [Rx Last Taken Unknown] gabapentin 100 mg capsule 100 mg PO QHS 01/03/24 [History Last Taken Unknown] prednisone 10 mg tablet 30 mg PO DAILY as directed 01/03/24 [History Last Taken Unknown] Allergy/AdvReac Type Severity Reaction Status Date / Time diltiazem [From Cardizem] Allergy Mild HIVES Verified 01/03/24 00:02 minoxidil Allergy Mild TACHYCARDIA Verified 01/03/24 00:02 prazosin [From Minipress] AdvReac Other Verified 01/03/24 00:02 Family History Brother Melanoma Prostate cancer Brother Liver cancer Mother , at 85. Congestive heart failure Father , at 64. COPD (chronic obstructive pulmonary disease) Surgical History (Updated 09/02/23 @ 00:01 by Annmarie Palmer) History of breast biopsy History of endometrial biopsy History of esophageal dilatation History of extraction of renal calculus Social History household members: spouse Smoking Status: Never smoker alcohol intake: never substance use type: does not use Physical Exam Narrative Lying in bed Const alert and oriented x3 HEENT normocephalic Eyes conjunctivae normal and no scleral icterus Neck supple Lymph Lymphatic: no lymphadenopathy noted Chest Chest Narrative: L mastectomy scar Resp normal respiratory effort and clear to auscultation bilaterally Cardio regular rate, regular rhythm, S1 normal heart sound and S2 normal heart sound GI normal to inspection, nondistended, normoactive bowel sounds and non-tender Extremity Extremity Narrative: +pedal edema Skin no rashes or lesions noted Neuro CN's II-XII intact bilaterally and moves all extremities Psych cooperative Vital Signs Temperature 97.9 F 01/04/24 12:00 Temperature Source Oral 01/04/24 12:00 Pulse Rate 84 01/04/24 12:00 Pulse Strength Normal (2+) 01/04/24 08:22 Respiratory Rate 20 H 01/04/24 12:00 Respiratory Effort Normal, Non-Labored 01/04/24 08:18 Respiratory Depth Shallow 01/04/24 08:18 Respiratory Pattern Irregular 01/04/24 08:18 Blood Pressure 93/61 01/04/24 12:00 Blood Pressure Mean 71 01/04/24 12:00 Blood Pressure Source Monitor 01/04/24 12:00 Blood Pressure Position Semi-Fowlers 01/04/24 12:00 Blood Pressure Location Right Arm 01/04/24 12:00 Pulse Ox 93 01/04/24 12:00 Oxygen Delivery Method Nasal Cannula 01/04/24 12:00 Oxygen Flow Rate (L/min) 2 01/04/24 12:00 Laboratory Results - last 24 hr 01/03/24 06:31: POC Glucose 331 H 01/03/24 09:10: POC Glucose 273 H 01/03/24 11:46: POC Glucose 309 H 01/03/24 12:45: Blood Type A POSITIVE, Antibody Screen NEGATIVE 01/03/24 13:44: Fluid Source THORACENTESIS, Fluid Color YELLOW, Fluid Appearance CLOUDY, Fluid WBC 18.450, Fluid RBC 256, Fluid Tot Cell Count 18.470 H, Fld Polynuclear WBCs # 18.062, Fld Polynuclear WBCs % 92.6, Fluid Mononuclear WBCs 1.454, Fld Mononuclear WBCs % 7.4, Fluid Neutrophils 81, Fluid Monocytes 10, Fld Mesothelial Cells 9, Fl Pathologist Comment May follow, Fluid Comment 2 SEE COMMENT 01/03/24 13:47: Fluid Glucose 230 H, Fluid Total Protein 2.1, Fluid LDH 239 01/03/24 17:01: POC Glucose 146 H 01/03/24 21:59: POC Glucose 193 H 01/04/24 06:10: WBC 2.6 L, RBC 2.58 L, Hgb 8.0 L, Hct 25.6 L, MCV 99.2 H, MCH 31.0, MCHC 31.3 L, RDW Std Deviation 58.6 H, RDW Coeff of Shameka 16.1 H, Plt Count 29 L*, MPV TNP, Differential Comment , Diff Path Review January foll, Sodium 139, Potassium 4.5, Chloride 104, Carbon Dioxide 27.0, Anion Gap 8, BUN 34 H, Creatinine 1.76 H, Estim Creat Clear Calc 19.65, Est GFR (MDRD) Af Amer 36 L, Est GFR (MDRD) Non-Af 30 L, BUN/Creatinine Ratio 19.3, Glucose 223 H, Calcium 7.7 L 01/04/24 06:40: POC Glucose 186 H 01/04/24 11:33: POC Glucose 174 H Microbiology 01/03/24 13:45 Fluid - Thoracentesis Fluid Gram Stain - Final 01/03/24 13:45 Fluid - Thoracentesis Fluid Body Fluid Culture - Preliminary No growth-Final to follow 01/03/24 01:50 Urine, Clean Catch Urine Culture - Preliminary Gram negative deni 01/03/24 03:15 Blood Culture (Wb) - Port Blood Culture - Preliminary Gram negative deni Diagnostic Data Chest CTA 01/03/24 00:20 IMPRESSION: No pulmonary embolism. Moderate right and trace left layering pleural effusion with small amount of pleural air versus adjacent cavitation or bulla at the medial right lower lobe . Associated compressive atelectasis right lower lobe posterior segment. Moderate hiatal hernia. 1.1 cm posterior left lower lobe nodule or atelectasis. 3 month follow-up CT recommended. Electronically Signed: Virgilio Boucher MD at 2:20 EDT , Chest X-Ray 01/03/24 13:35 IMPRESSION: No evidence of pneumothorax on the immediate post right thoracentesis. Residual right pleural-parenchymal changes persist. Electronically Signed: Tim Tavera MD at 14:11 EDT , Renal Ultrasound 01/04/24 07:44 IMPRESSION: Mild right hydronephrosis. Patient is unable to empty the bladder. Electronically Signed: Tim Tavera MD at 9:48 EDT , Charges/Coding Visit Charges Office Visits / Consults: 70039 IP Consult L3
--- NOTE | 2024-01-04 14:08 | CON.PCM.RE_ITS ---
Assessment & Plan Assessment/Plan (1) Acute kidney injury: PLAN: baseline cr normal. renal US without hydronephrosis. cr was normal at 0.9 to 1 on 12/21/23. 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 new onset. hematology following HPI Consult Data Date of Consult: 01/04/24 HPI Narrative Reason for Consultation: skyla HPI Narrative: JENNA TERAN, is a 78 F who presents to the hospital with severe back pain. she has known history of breast ca, s/p surgery. recently started adjuvant treatment with keytruda. she was admitted at [facility] with diarrhea and discharged on 12/21/23. reviewed records. presumably ICPI colitis. was started on solumedrol with pred taper. nephrology consulted in view of SKYLA. cr 1.4 to 1.7. normal baseline 0.9. denies any urinary complaints. no voiding issues. breathing is ok. [facility] Medical History (Updated 01/04/24 @ 14:[address] Nickolas Brady MD) Arthritis Diabetes Difficulty swallowing Diverticular disease Esophageal dysphagia Gastric reflux GERD (gastroesophageal reflux disease) Gout Hiatal hernia History of diverticulitis History of IBS History of kidney stones Hypercholesteremia Hypertension IBS (irritable bowel syndrome) Non-smoker Osteoarthritis Thrombocytopenia Wears glasses Home Medications allopurinol 300 mg tablet 300 mg PO DAILY kidney health 11/06/19 [History Last Taken 08/17/23] vit C 250 mg-vit E 90 mg-zinc 40 mg-copper 1 [id number] capsule (PreserVision AREDS-2) 1 tab PO BID eye health 02/02/23 [History Last Taken 08/17/23] acetaminophen 325 mg tablet 650 mg PO Q6H PRN pain/fever 08/17/23 [History Last Taken Unknown] metoprolol tartrate 25 mg tablet 25 mg PO BID blood pressure 08/17/23 [History Last Taken 08/17/23] prochlorperazine maleate 10 mg tablet (Compazine) 10 mg PO Q6H PRN nausea and vomiting 08/17/23 [History Last Taken Unknown] food supplemt, lactose-reduced (Ensure Clear oral liquid) 120 ml PO 4X/DAY #120 BOTTLES 08/24/23 [Rx Last Taken Unknown] pantoprazole 40 mg tablet,delayed release 40 mg PO BID acid reflux #30 tabs 08/24/23 [Rx Last Taken Unknown] gabapentin 100 mg capsule 100 mg PO QHS 01/03/24 [History Last Taken Unknown] prednisone 10 mg tablet 30 mg PO DAILY as directed 01/03/24 [History Last Taken Unknown] Allergy/AdvReac Type Severity Reaction Status Date / Time diltiazem [From Cardizem] Allergy Mild HIVES Verified 01/03/24 00:02 minoxidil Allergy Mild TACHYCARDIA Verified 01/03/24 00:02 prazosin [From Minipress] AdvReac Other Verified 01/03/24 00:02 Family History Brother Melanoma Prostate cancer Brother Liver cancer Mother , at 85. Congestive heart failure Father , at 64. COPD (chronic obstructive pulmonary disease) Surgical History (Updated 09/02/23 @ 00:01 by Annmarie Palmer) History of breast biopsy History of endometrial biopsy History of esophageal dilatation History of extraction of renal calculus Social History household members: spouse Smoking Status: Never smoker alcohol intake: never substance use type: does not use Physical Exam Narrative Alert awake oriented x 3 no obvious distress no pallor no icterus no JVD s1s2 no murmurs lungs clear abdomen soft no organomegaly no edema no cyanosis Lab / Micro Data 01/04/24 06:10 01/04/24 06:10 Labs: Laboratory Results - last 24 hr 01/03/24 13:44: Fluid Source THORACENTESIS, Fluid Color YELLOW, Fluid Appearance CLOUDY, Fluid WBC 18.450, Fluid RBC 256, Fluid Tot Cell Count 18.470 H, Fld Polynuclear WBCs # 18.062, Fld Polynuclear WBCs % 92.6, Fluid Mononuclear WBCs 1.454, Fld Mononuclear WBCs % 7.4, Fluid Neutrophils 81, Fluid Monocytes 10, Fld Mesothelial Cells 9, Fl Pathologist Comment May follow, Fluid Comment 2 SEE COMMENT 01/03/24 13:47: Fluid Glucose 230 H, Fluid Total Protein 2.1, Fluid LDH 239 01/03/24 17:01: POC Glucose 146 H 01/03/24 21:59: POC Glucose 193 H 01/04/24 06:10: WBC 2.6 L, RBC 2.58 L, Hgb 8.0 L, Hct 25.6 L, MCV 99.2 H, MCH 31.0, MCHC 31.3 L, RDW Std Deviation 58.6 H, RDW Coeff of Shameka 16.1 H, Plt Count 29 L*, MPV TNP, Differential Comment , Diff Path Review January foll, Sodium 139, Potassium 4.5, Chloride 104, Carbon Dioxide 27.0, Anion Gap 8, BUN 34 H, Creatinine 1.76 H, Estim Creat Clear Calc 19.65, Est GFR (MDRD) Af Amer 36 L, Est GFR (MDRD) Non-Af 30 L, BUN/Creatinine Ratio 19.3, Glucose 223 H, Calcium 7.7 L 01/04/24 06:40: POC Glucose 186 H 01/04/24 11:33: POC Glucose 174 H Micro: Microbiology 01/03/24 13:45 Fluid - Thoracentesis Fluid Gram Stain - Final 01/03/24 13:45 Fluid - Thoracentesis Fluid Body Fluid Culture - Preliminary No growth-Final to follow 01/03/24 01:50 Urine, Clean Catch Urine Culture - Preliminary Gram negative deni 01/03/24 03:15 Blood Culture (Wb) - Port Blood Culture - Preliminary Gram negative deni Imaging Radiology Impression Chest X-Ray 01/03/24 13:35 IMPRESSION: No evidence of pneumothorax on the immediate post right thoracentesis. Residual right pleural-parenchymal changes persist. Electronically Signed: Tim Tavera MD at 14:11 EDT , Renal Ultrasound 01/04/24 07:44 IMPRESSION: Mild right hydronephrosis. Patient is unable to empty the bladder. Electronically Signed: Tim Tavera MD at 9:48 EDT ,
--- NOTE | 2024-01-04 15:55 | PCM.HOSP.N ---
Hospitalist Note Notified by nursing staff that patient remains hypotensive at 80s over 50s despite receiving about 30 cc/kg of IV fluids. Has known gram-negative bacteremia with worsening SKYLA, so I have concern for developing septic shock. Will give IV fluids up to 2 L total, but as patient is DNR CCA DNI would hold on further IV fluids to avoid respiratory decompensation given patient has pneumonia and has had minimal urine output due to SKYLA. Will transfer patient to the ICU for suspected need for pressors for septic shock.
[2024-01-04 15:58] LABS: Pathologist Comment/Body Fluid Reviewed
[2024-01-04 15:59] LABS: Pathologist Review Reviewed
[2024-01-04 16:02] LABS: Pathologist Review Reviewed
[2024-01-04 16:23] LABS: Bedside Glucose 176 mg/dL (74-106)
[2024-01-04] MEDS: Norepinephrine 8 MG in 0.9% Normal Saline (250mL Bag) 242 ML 9.4 MG CONT INF (17:30)
--- NOTE | 2024-01-04 17:34 | PCM.PN.TICU ---
Objective Data Objective Data Vital Signs: Vital Signs Last response Temperature 36.7 C 01/04/24 15:45 Temperature Source Oral 01/04/24 15:45 Pulse Rate 91 01/04/24 17:30 Pulse Strength Normal (2+) 01/04/24 08:22 Respiratory Rate 18 01/04/24 17:06 Respiratory Effort Non-Labored 01/04/24 16:54 Respiratory Depth Normal 01/04/24 16:54 Respiratory Pattern Normal 01/04/24 16:54 Blood Pressure 73/39 L 01/04/24 17:30 Blood Pressure Mean 50 01/04/24 17:30 Blood Pressure Source Monitor 01/04/24 17:30 Blood Pressure Position Semi-Fowlers 01/04/24 17:06 Blood Pressure Location Right Arm 01/04/24 17:06 Pulse Ox 96 01/04/24 17:06 Oxygen Delivery Method Room Air 01/04/24 17:06 Oxygen Flow Rate (L/min) 2 01/04/24 15:45 I&O: I&O Last 24 Hours 01/03/24 01/04/24 01/04/24 23:59 11:59 23:59 Intake Total 100 / 1355 540 / 1256.67 716.67 / 1256.67 Output Total 260 / 260 300 / 360 60 / 360 Balance -160 / 1095 240 / 896.67 656.67 / 896.67 I&O: Total Stay 01/02/24 23:59 thru 01/04/24 15:55 Intake Total 2511.67 Output Total 620 Balance 1891.67 Current Meds Ordered / Administered: Current meds ordered / Administered Generic Name Dose Route Start Last Admin Trade Name Freq PRN Reason Stop Dose Admin Acetaminophen 650 mg 01/04/24 03:41 01/04/24 06:30 Acetaminophen 325 Mg Tablet PO 650 mg Q6H PRN PRN Administration Pain 1-10 or Fever Allopurinol 100 mg 01/03/24 10:00 01/04/24 07:51 Allopurinol 100 Mg Tablet PO 100 mg DAILY SATISH Administration Calamine/Phenol 1 applic 01/03/24 22:00 01/04/24 12:39 Menthol/Lanolin/Calamine/Znox 113 Gm Tube TOPICAL 1 applic TID SATISH Administration Protocol Dextrose 0 gm 01/03/24 04:32 Dextrose 50%-Water 25 Gm/50 Ml Disp.Syrin IV X1 PRN HYPOGLYCEMIA Protocol Gabapentin 100 mg 01/03/24 22:00 01/03/24 22:07 Gabapentin 100 Mg Capsule PO 100 mg QHS SATISH Administration Glucagon 1 mg 01/03/24 04:32 Glucagon 1 Mg/Ml Syringe IM X1 PRN HYPOGLYCEMIA Heparin Sodium (Beef Lung) 50 units 01/03/24 00:52 Heparin Pf Lock 10 Units/Ml 50 Units/5 Ml Syringe IV UD PRN Port-a-Cath (VAD)Heparin Flush Hydromorphone HCl 0.5 mg 01/03/24 09:28 Hydromorphone 0.5 Mg/0.5 Ml Syringe IV Q4H PRN PRN Pain Score 6-10 Piperacillin Sod/Tazobactam 50 mls @ 12.5 mls/hr 01/03/24 14:00 01/04/24 15:55 Sod 3.375 gm/ Sodium Chloride IV Infused Q8 SATISH Infusion Vancomycin IV-PHARMACY TO DOSE 500 mls @ 250 mls/hr 01/03/24 04:32 1 each/ Sodium Chloride IV X1 PRN Rx to Dose Protocol Sodium Chloride 250 mls @ 15 mls/hr 01/03/24 04:36 IV .[id number] PRN Additional IVPB Infusion Sodium Chloride 250 mls @ 15 mls/hr 01/03/24 04:36 IV .[id number] PRN Saline Flush Vancomycin HCl 500 mg in 100 mls @ 100 mls/hr 01/04/24 05:00 01/04/24 07:06 IV Infused Q24H SATISH Infusion Lactated Ringer's 1,000 mls @ 200 mls/hr 01/04/24 16:00 01/04/24 16:01 IV 01/04/24 19:01 200 mls/hr .Q5H SATISH Administration Norepinephrine Bitartrate 8 mg 250 mls @ 9.375 mls/hr 01/04/24 17:05 01/04/24 17:30 / Sodium Chloride CONT INF 5 mcg/min .[id number] SATISH 9.4 mls/hr Administration Protocol 5 MCG/MIN Insulin Human Lispro 0 unit 01/03/24 07:00 01/04/24 16:02 Insulin Lispro 100 Unit/Ml Insuln.Pen SC 3 units ACHS SATISH Administration Protocol Nutritional Formula (Lactose Free) 120 ml 01/04/24 18:00 Ensure Clear 120 Ml Liquid PO 4X/DAY [facility] Oxycodone HCl 5 mg 01/03/24 09:28 01/04/24 07:50 Oxycodone 5 Mg Tablet PO 5 mg Q4H PRN PRN Administration Pain Score 4-10 Pantoprazole Sodium 40 mg 01/03/24 10:00 01/04/24 07:50 Pantoprazole Sodium 40 Mg Tablet PO 40 mg BID SATISH Administration Prednisone 30 mg 01/03/24 08:00 01/04/24 07:51 Prednisone 10 Mg Tablet PO 30 mg DAILYCM SATISH Administration Sodium Chloride 10 - 40 ml 01/03/24 00:52 0.9 % Nacl (Sterile) Posiflush 10 Ml IV UD PRN Port access or dressing change Sodium Chloride 10 - 40 ml 01/03/24 00:52 0.9% Saline Lock 10 Ml Syringe IV UD PRN Port-a-Cath (VAD) Flush Sodium Chloride 10 - 40 ml 01/03/24 04:36 0.9% Saline Lock 10 Ml Syringe IV UD PRN SALINE FLUSH Vancomycin Protocol 1 lab 01/05/24 02:30 Vancomycin Trough/Random Due MC 01/05/24 06:30 DAILY SATISH Lab / Micro Data 01/04/24 18:07 01/04/24 06:10 Labs: Laboratory Results - last 24 hr 01/03/24 13:44: Fl Pathologist Comment Reviewed 01/03/24 21:59: POC Glucose 193 H 01/04/24 06:10: WBC 2.6 L, RBC 2.58 L, Hgb 8.0 L, Hct 25.6 L, MCV 99.2 H, MCH 31.0, MCHC 31.3 L, RDW Std Deviation 58.6 H, RDW Coeff of Shameka 16.1 H, Plt Count 29 L*, MPV TNP, Differential Comment , Diff Path Review January, Sodium 139, Potassium 4.5, Chloride 104, Carbon Dioxide 27.0, Anion Gap 8, BUN 34 H, Creatinine 1.76 H, Estim Creat Clear Calc 19.65, Est GFR (MDRD) Af Amer 36 L, Est GFR (MDRD) Non-Af 30 L, BUN/Creatinine Ratio 19.3, Glucose 223 H, Calcium 7.7 L 01/04/24 06:40: POC Glucose 186 H 01/04/24 11:33: POC Glucose 174 H 01/04/24 16:00: POC Glucose 176 H Micro: Microbiology 01/04/24 12:15 Nasal Secretion MRSA (PCR) - Final 01/03/24 13:45 Fluid - Thoracentesis Fluid Gram Stain - Final 01/03/24 13:45 Fluid - Thoracentesis Fluid Body Fluid Culture - Preliminary No growth-Final to follow 01/03/24 01:50 Urine, Clean Catch Urine Culture - Preliminary Gram negative deni 01/03/24 03:15 Blood Culture (Wb) - Port Blood Culture - Preliminary Gram negative deni Imaging Radiology Impression Renal Ultrasound 01/04/24 07:44 IMPRESSION: Mild right hydronephrosis. Patient is unable to empty the bladder. Electronically Signed: Tim Tavera MD at 9:48 EDT , Assessment and Plan . Assessment and plan: Subjective: Developed worsening hypotension this afternoon despite IVF boluses, then transferred to ICU and started on pressors. No bleeding noted. Physical Exam: Gen - NAD, drowsy, frail-appearing HEENT - MMMdry. Sclera anicteric Resp - CTAB. Breathing nonlabored CV - RRR. No m/g/r Abd - Soft, NT, ND Ext - No c/c. ++edema Skin - No rashes? Neuro - Drowsy but arousable, can answer some simple questions and falls back asleep I have reviewed the pertinent vital sign, laboratory, and imaging data. ASSESSMENT: # Septic shock # GNR bacteremia # PNA # UTI # Pleural effusion - s/p thoracentesis # h/o breast Ca - recently on keytruda # Colitis - felt 2/2 immunotherapy, on steroid taper for his # Pancytopenia # SKYLA # GERD # Gout # Severe hypoalbuminemia PLAN: -Started on levophed, wean to keep MAP > 65. Will need CVL if unable to wean off -Cont IVF. Add scheduled albumin. Switch pred to stress dose hydrocortisone -Empiric abx as per ID service. f/u GNR speciation -Monitor Cr, UOP. Nephrology following -f/u pleural fluid Cx, initial studies suggestive of parapneumonic effusion -Check trop, lactate -Obtain echo -Follow CBC. No further workup needing for thrombocytopenia per oncology. Monitor for bleeding FEN/GI: NPO Proph DVT/GI: SCDs Code status: DNR/DNI Updated family at bedside Critical Care Time: 50 mins The entirety of this encounter was completed via telemedicine
--- NOTE | 2024-01-04 17:56 | ECHOD_ITS ---
Reason For Study: Edema, Hypotension Procedure This was a 2D Doppler, Color Flow transthoracic echocardiogram. Exam performed portable in ICU/CCU. Left Ventricle Normal left ventricle. The estimated ejection fraction is 55-60 %. Right Ventricle Normal right ventricle. Normal systolic function. Atria Normal left atrium. Normal right atrium. Mitral Valve The mitral valve is structurally normal. No prolapse or stenosis seen. Mild (1+) mitral valve insufficiency. Tricuspid Valve Normal tricuspid valve. Mild tricuspid valve insufficiency. Aortic Valve Trisinus/trileaflet aortic valve. Pulmonic Valve The pulmonic valve is not well visualized. Great Vessels Normal aortic root. Pericardium/Pleural There is no pericardial constriction. MMode/2D Measurements & Calculations LVIDd: 4.2 cm IVSd: 0.72 cm Ao root diam: 2.8 cm LVIDs: 2.0 cm LVPWd: 0.70 cm RVDd: 3.7 cm FS: 53.4 % LAV(MOD-bp): 25.0 ml LVAd ap4: 22.2 cm2 SV(MOD-sp4): 38.3 ml LAV(MOD-bp) Indexed: 17.1 ml/m2 LVLd ap4: 7.5 cm LAV(MOD-sp2): 28.7 ml EDV(MOD-sp4): 53.0 ml LAV(MOD-sp4): 21.6 ml EDV(sp4-el): 56.1 ml LVAs ap4: 10.0 cm2 LVLs ap4: 5.9 cm ESV(MOD-sp4): 14.7 ml ESV(sp4-el): 14.6 ml EF(MOD-sp4): 72.2 % EF(sp4-el): 74.0 % SV(sp4-el): 41.5 ml LA A4 area: 10.5 cm2 LA dimension(2D): 2.9 cm RA A4 area: 11.1 cm2 TAPSE: 2.2 cm Time Measurements MV dec time: 0.19 sec Doppler Measurements & Calculations MV E max tutu: 111.1 cm/sec Lat Peak E' Tutu: 17.8 cm/sec Med Peak E' Tutu: 9.4 cm/sec MV A max tutu: 82.3 cm/sec E/E' lat: 6.2 E/E' med: 11.8 MV E/A: 1.3 Ao V2 max: 182.5 cm/sec LV V1 max: 143.1 cm/sec MV dec slope: 589.0 cm/sec2 Ao max P.3 mmHg LV V1 max P.2 mmHg Ao V2 mean: 129.7 cm/sec Ao mean P.4 mmHg Ao V2 VTI: 33.1 cm PA V2 max: 102.4 cm/sec TR max tutu: 460.6 cm/sec TR max P.8 mmHg ECHO/Echo Complete Interpretation Summary The estimated ejection fraction is 55-60 %. Normal LV systolic function Mild MR No previous study to compare Ordering Physician: Mitchel Landaverde Referring Physician: Edgar Menezes Performed By: Christina Hall, BARRETT, RVT
[2024-01-04 18:19] LABS: Hemoglobin 7.7 g/dL (12.0-15.0)
[2024-01-04 18:40] LABS: Magnesium 1.4 mg/dL (1.6-2.6); Phosphorus 4.5 mg/dL (2.5-4.9); Troponin-I HS 27 pg/mL (3.0-54.0)
[2024-01-04 18:42] LABS: Lactic Acid 2.9 mmol/L (0.4-1.9)
[2024-01-04] MEDS: Hydrocortisone Sod Succinate 100 MG/2 ML Vial IV ×2 (18:51→22:39)
[2024-01-04] MEDS: Albumin Human 25% (100 mL) 25 GM/100 ML BAG IV (18:52)
[2024-01-04] MEDS: Magnesium Sulfate 4gm/100mL 4 GM/100 ML IV.SOLN. IV (21:04)
[2024-01-04 21:10] LABS: Bedside Glucose 145 mg/dL (74-106)
[2024-01-04 22:14] LABS: Reflex Lactate? Y
[2024-01-04 23:17] LABS: Lactic Acid 1.6 mmol/L (0.4-1.9)
[2024-01-05] VITALS (51 sets, daily range): BP systolic 91–150; BP diastolic 36–111; PULSE 64–106; RESP 12–23; TEMP 36.3–37.3; O2SAT 85–99; BMI 19.9; BMI 19.8
[2024-01-05] MEDS: Norepinephrine 8 MG in 0.9% Normal Saline (250mL Bag) 242 ML 37.5 MG CONT INF (00:23)
[2024-01-05] MEDS: Albumin Human 25% (100 mL) 25 GM/100 ML BAG IV ×2 (00:42→05:28)
[2024-01-05] MEDS: Vancomycin Trough/Random Due 1 LAB MC (03:14)
[2024-01-05 03:35] LABS: Hematocrit 22.3 % (37-47); Hemoglobin 6.8 g/dL (12.0-15.0); Mean Corp Hgb Conc 30.5 g/dL (32-36); Mean Corpuscular Hgb 30.8 pg (27.0-32.0); Mean Corpuscular Volume 100.9 fL (81-99); POSITIVE COUNT YES; RBC Distribution Width CV 16.3 % (11.6-14.6); RBC Distribution Width SD 60.7 fl (35.1-43.9); Red Blood Count 2.21 M/mm3 (4.2-5.4)
[2024-01-05 03:41] LABS: Platelet Count 25 K/mm3 (150-450); Scan Indicated on CBC? Y/N YES- FLAGS NOTED
[2024-01-05 03:53] LABS: Anion Gap 8 (5-15); BUN 39 mg/dL (7-18); Calcium,Total 8.1 mg/dL (8.5-10.1); Chloride 104 mmol/L (98-107); Creatinine, Serum 2.43 mg/dL (0.55-1.02); EST Glomerular Filtration Rate 21 mL/min (>60); Est Glom Filt Rate - Afr Amer 25 mL/min (>60); Estimated Creatinine Clearance 15.61 ml/min; Glucose 171 mg/dL (74-106); Potassium 4.6 mmol/L (3.5-5.1); Sodium Level 136 mmol/L (136-145)
[2024-01-05 03:55] LABS: Vancomycin, Trough Level 13.5 ug/mL (5.0-15.0)
--- NOTE | 2024-01-05 04:05 | PCM.RX.CS ---
Consult Antibiotic Management Pharmacy has been consulted to manage selected antibiotic: Vancomycin Type of Intervention Type of Consult: Follow-up Labs Labs: Sodium 136 mmol/L (136-145) 01/05/24 03:25 Potassium 4.6 mmol/L (3.5-5.1) 01/05/24 03:25 Chloride 104 mmol/L (98-107) 01/05/24 03:25 Carbon Dioxide 24.0 mmol/L (21.0-32.0) 01/05/24 03:25 Anion Gap 8 (5-15) 01/05/24 03:25 BUN 39 mg/dL (7-18) H 01/05/24 03:25 Creatinine 2.43 mg/dL (0.55-1.02) H 01/05/24 03:25 Est GFR (MDRD) Af Amer 25 mL/min (>60) L 01/05/24 03:25 Est GFR (MDRD) Non-Af 21 mL/min (>60) L 01/05/24 03:25 BUN/Creatinine Ratio 16.0 RATIO (10-20) 01/05/24 03:25 Glucose 171 mg/dL (74-106) H 01/05/24 03:25 Vancomycin Trough 13.5 ug/mL (5.0-15.0) 01/05/24 03:25 Microbiology Microbiology: Microbiology 01/04/24 12:15 Nasal Secretion MRSA (PCR) - Final 01/03/24 13:45 Fluid - Thoracentesis Fluid Gram Stain - Final 01/03/24 13:45 Fluid - Thoracentesis Fluid Body Fluid Culture - Preliminary No growth-Final to follow 01/03/24 01:50 Urine, Clean Catch Urine Culture - Preliminary Gram negative deni 01/03/24 03:15 Blood Culture (Wb) - Port Blood Culture - Preliminary Gram negative deni Pharmacy Plan for Drug Dosing Pharmacy Plan for Drug Dosing: Pharmacy Service will continue to monitor and adjust dosing as required. TROUGH 13.5 @ 22.5 HOURS. SCr INCREASED FROM 1.76 TO 2.43. GIVE CURRENT DOSE AND DRAW TROUGH PRIOR TO NEXT DOSE Follow-Up Labs Follow-Up Labs: Trough: Vancomycin Date/Time Labs Ordered Labs to be done on [date and time ordered]: 01/05 @ 7198
[2024-01-05 04:10] LABS: Differential Comment SCANNED
[2024-01-05] MEDS: Vancomycin IV 500 MG/100 ML BAG 100 MG IV (04:20)
[2024-01-05] MEDS: Hydrocortisone Sod Succinate 100 MG/2 ML Vial IV (05:27)
[2024-01-05] MEDS: Menthol/Lanolin/Calamine/Znox 113 GM Tube 1 APPLIC TOPICAL (05:27)
[2024-01-05] MEDS: Piperacil/Tazobactam 3.375 GM in 0.9% Normal Saline (50mL MB+) 50 ML IV (06:27)
[2024-01-05] MEDS: Insulin Lispro 100 UNIT/ML INSULN.PEN SC (06:28)
[2024-01-05 06:51] LABS: Bedside Glucose 174 mg/dL (74-106)
[2024-01-05 06:56] LABS: Urine Sodium 32 mmol/L (Not Establ.)
--- NOTE | 2024-01-05 07:55 | RAD_ITS ---
ACR Level 3 findings have been noted. An addendum which confirms receipt of the report will follow. STUDY: X-RAY CHEST REASON FOR EXAM: Female, 78 years old. Respiratory distress TECHNIQUE: Frontal view of the chest COMPARISON: 01/03/2024 FINDINGS: There is a large right pleural effusion with overlying atelectasis. This is worse when compared with the prior exam. There are loculated air-fluid levels in the right upper hemithorax which may be due to a hydropneumothorax. Further evaluation with CT is recommended. The left lung is clear. There is a right-sided port with its tip in the superior vena cava. The heart is normal in size. The visualized osseous structures are within normal limits. RAD/Chest 1 View (Portable) IMPRESSION: Large right pleural effusion with overlying atelectasis. This is worse when compared to prior exam. Loculated air-fluid levels in the right upper hemithorax which may be due to a hydropneumothorax. Further evaluation with CT is recommended. Electronically Signed: Addi Wiseman MD at 9:22 EDT ,
--- NOTE | 2024-01-05 08:07 | PCM.PN.TICU ---
Objective Data Objective Data Vital Signs: Vital Signs Last response Temperature 36.3 C L 01/05/24 07:04 Temperature Source Temporal 01/05/24 07:04 Pulse Rate 82 01/05/24 07:04 Pulse Strength Normal (2+) 01/04/24 08:22 Respiratory Rate 17 01/05/24 07:04 Respiratory Effort Non-Labored 01/04/24 16:54 Respiratory Depth Normal 01/04/24 16:54 Respiratory Pattern Normal 01/04/24 16:54 Blood Pressure 110/54 L 01/05/24 07:04 Blood Pressure Mean 72 01/05/24 07:04 Blood Pressure Source Monitor 01/05/24 07:04 Blood Pressure Position Semi-Fowlers 01/05/24 07:00 Blood Pressure Location Right Arm 01/05/24 07:00 Pulse Ox 98 01/05/24 07:04 Oxygen Delivery Method Nasal Cannula 01/05/24 07:04 Oxygen Flow Rate (L/min) 2 01/05/24 07:04 I&O: I&O Last 24 Hours 01/04/24 01/04/24 01/05/24 11:59 23:59 11:59 Intake Total 540 / 3584.06 3037.03 / 3584.06 734.15 / 734.15 Output Total 300 / 360 60 / 360 50 / 50 Balance 240 / 3224.06 2977.03 / 3224.06 684.15 / 684.15 I&O: Total Stay 01/02/24 23:59 thru 01/05/24 07:38 Intake Total 5566.18 Output Total 670 Balance 4896.18 Current Meds Ordered / Administered: Current meds ordered / Administered Generic Name Dose Route Start Last Admin Trade Name Freq PRN Reason Stop Dose Admin Acetaminophen 650 mg 01/04/24 03:41 01/04/24 06:30 Acetaminophen 325 Mg Tablet PO 650 mg Q6H PRN PRN Administration Pain 1-10 or Fever Allopurinol 100 mg 01/03/24 10:00 01/04/24 07:51 Allopurinol 100 Mg Tablet PO 100 mg DAILY SATISH Administration Calamine/Phenol 1 applic 01/03/24 22:00 01/05/24 05:27 Menthol/Lanolin/Calamine/Znox 113 Gm Tube TOPICAL 1 applic TID SATISH Administration Protocol Dextrose 0 gm 01/03/24 04:32 Dextrose 50%-Water 25 Gm/50 Ml Disp.Syrin IV X1 PRN HYPOGLYCEMIA Protocol Gabapentin 100 mg 01/03/24 22:00 01/04/24 22:12 Gabapentin 100 Mg Capsule PO Not Given QHS SATISH Glucagon 1 mg 01/03/24 04:32 Glucagon 1 Mg/Ml Syringe IM X1 PRN HYPOGLYCEMIA Heparin Sodium (Beef Lung) 50 units 01/03/24 00:52 Heparin Pf Lock 10 Units/Ml 50 Units/5 Ml Syringe IV UD PRN Port-a-Cath (VAD)Heparin Flush Hydrocortisone Sodium Succinate 100 mg 01/04/24 18:00 01/05/24 05:27 Hydrocortisone Sod Succinate 100 Mg/2 Ml Vial IV 100 mg Q8 SATISH Administration Hydromorphone HCl 0.5 mg 01/03/24 09:28 Hydromorphone 0.5 Mg/0.5 Ml Syringe IV Q4H PRN PRN Pain Score 6-10 Piperacillin Sod/Tazobactam 50 mls @ 12.5 mls/hr 01/03/24 14:00 01/05/24 06:27 Sod 3.375 gm/ Sodium Chloride IV 12.5 mls/hr Q8 SATISH Administration Vancomycin IV-PHARMACY TO DOSE 500 mls @ 250 mls/hr 01/03/24 04:32 1 each/ Sodium Chloride IV X1 PRN Rx to Dose Protocol Sodium Chloride 250 mls @ 15 mls/hr 01/03/24 04:36 IV .[id number] PRN Additional IVPB Infusion Sodium Chloride 250 mls @ 15 mls/hr 01/03/24 04:36 IV .[id number] PRN Saline Flush Vancomycin HCl 500 mg in 100 mls @ 100 mls/hr 01/04/24 05:00 01/05/24 05:20 IV Infused Q24H SATISH Infusion Norepinephrine Bitartrate 8 mg 250 mls @ 9.375 mls/hr 01/04/24 17:05 01/05/24 07:00 / Sodium Chloride CONT INF 0 mcg/min .[id number] SATISH 0 mls/hr Titration Protocol 5 MCG/MIN Albumin Human 25 gm in 100 mls @ 60 mls/hr 01/04/24 18:00 01/05/24 07:08 IV Infused Q6H SATISH Infusion Phenylephrine HCl 10 mg/ 250 mls @ 15 mls/hr 01/05/24 07:55 Sodium Chloride CONT INF .[id number] [facility] Protocol 10 MCG/MIN Insulin Human Lispro 0 unit 01/03/24 07:00 01/05/24 06:28 Insulin Lispro 100 Unit/Ml Insuln.Pen SC 3 units ACHS [facility] Administration Protocol Nutritional Formula (Lactose Free) 120 ml 01/04/24 18:00 01/04/24 22:09 Ensure Clear 120 Ml Liquid PO Not Given 4X/DAY [facility] Oxycodone HCl 5 mg 01/03/24 09:28 01/04/24 07:50 Oxycodone 5 Mg Tablet PO 5 mg Q4H PRN PRN Administration Pain Score 4-10 Pantoprazole Sodium 40 mg 01/03/24 10:00 01/04/24 22:12 Pantoprazole Sodium 40 Mg Tablet PO Not Given BID [facility] Prednisone 30 mg 01/03/24 08:00 01/04/24 07:51 Prednisone 10 Mg Tablet PO 30 mg DAILYCM SATISH Administration Sodium Chloride 10 - 40 ml 01/03/24 00:52 0.9 % Nacl (Sterile) Posiflush 10 Ml IV UD PRN Port access or dressing change Sodium Chloride 10 - 40 ml 01/03/24 00:52 0.9% Saline Lock 10 Ml Syringe IV UD PRN Port-a-Cath (VAD) Flush Sodium Chloride 10 - 40 ml 01/03/24 04:36 0.9% Saline Lock 10 Ml Syringe IV UD PRN SALINE FLUSH Vancomycin Protocol 1 lab 01/06/24 02:30 Vancomycin Trough/Random Due MC 01/06/24 06:30 DAILY [facility] Lab / Micro Data 01/05/24 03:25 01/05/24 03:25 Labs: Laboratory Results - last 24 hr 01/03/24 08:35: Diff Path Review Reviewed 01/03/24 12:45: Diff Path Review Reviewed 01/03/24 13:44: Fl Pathologist Comment Reviewed 01/04/24 06:25: Ur Random Sodium 32, Urine Creatinine 58.20 01/04/24 11:33: POC Glucose 174 H 01/04/24 16:00: POC Glucose 176 H 01/04/24 18:07: Hgb 7.7 L, Lactic Acid 2.9 H*, Phosphorus 4.5, Magnesium 1.4 L, Troponin I High Sens 27, TSH 0.90 01/04/24 20:51: POC Glucose 145 H 01/04/24 22:35: Lactic Acid 1.6 01/05/24 03:25: WBC 1.0 L*, RBC 2.21 L, Hgb 6.8 L, Hct 22.3 L, MCV 100.9 H, MCH 30.8, MCHC 30.5 L, RDW Std Deviation 60.7 H, RDW Coeff of Shameka 16.3 H, Plt Count 25 L*, MPV TNP, Differential Comment SCANNED, Diff Path Review January foll, Sodium 136, Potassium 4.6, Chloride 104, Carbon Dioxide 24.0, Anion Gap 8, BUN 39 H, Creatinine 2.43 H, Estim Creat Clear Calc 15.61, Est GFR (MDRD) Af Amer 25 L, Est GFR (MDRD) Non-Af 21 L, BUN/Creatinine Ratio 16.0, Glucose 171 H, Calcium 8.1 L, Vancomycin Trough 13.5 01/05/24 06:27: POC Glucose 174 H Micro: Microbiology 01/03/24 03:15 Blood Culture (Wb) - Port Blood Culture - Final Escherichia coli 01/03/24 01:50 Urine, Clean Catch Urine Culture - Final Escherichia coli 01/04/24 12:15 Nasal Secretion MRSA (PCR) - Final 01/03/24 13:45 Fluid - Thoracentesis Fluid Gram Stain - Final 01/03/24 13:45 Fluid - Thoracentesis Fluid Body Fluid Culture - Preliminary No growth-Final to follow Imaging Radiology Impression Renal Ultrasound 01/04/24 07:44 IMPRESSION: Mild right hydronephrosis. Patient is unable to empty the bladder. Electronically Signed: Tim Tavera MD at 9:48 EDT , Assessment and Plan . Assessment and plan: Subjective: More lethargic this AM. Worsening oliguria. Remains drowsy. Intermittent Afib w/ RVR overnight Physical Exam: Gen - NAD, drowsy, frail-appearing HEENT - MM dry. Sclera anicteric Resp - Diminished BS. Breathing nonlabored CV - Irregular rhythm. No m/g/r Abd - Soft, NT, ND Ext - No c/c. ++edema Skin - No rashes? Neuro - Drowsy, arousable but more confused than yesterday I have reviewed the pertinent vital sign, laboratory, and imaging data. 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 Will need CVL if remains on pressors -On 2L NC now. Obtain ABG -CXR with significant worsening effusion and possible hydropneumothorax. Obtain STAT CT chest. Will likely need chest tube if pt/family desire additional invasive procedures -Transfuse pRBC. Monitor CBC. No further workup for thrombocytopenia needed per oncology -Centle IVF x 1 additional liter,, further adjustment as per nephrology. Added scheduled albumin, continue for today. Switched pred to stress dose hydrocortisone -Empiric abx as per ID service for E coli bacteremia. Stop vanc. MRSA neg -Monitor mental status. Obtain CT head -Monitor Cr, UOP. Nephrology following -f/u pleural fluid Cx, initial studies suggestive of parapneumonic effusion -f/u echo FEN/GI: NPO Proph DVT/GI: SCDs Code status: DNR/DNI Updated family at bedside yesterday, need to revisit GOC with them today as well Critical Care Time: 50 mins The entirety of this encounter was completed via telemedicine Critical Care Time: The entirety of this encounter was done via Telemedicine
[2024-01-05] MEDS: 0.9% Saline Lock 10 ML Syringe IV ×2 (08:24→16:36)
[2024-01-05] MEDS: oxyCODONE 5 MG Tablet PO ×2 (08:28→16:17)
[2024-01-05] MEDS: Phenylephrine 10 MG in 0.9% Normal Saline (250mL Bag) 249 ML 15 MG CONT INF (08:45)
--- NOTE | 2024-01-05 08:54 | CT_ITS ---
STUDY: CT CHEST WITHOUT CONTRAST REASON FOR EXAM: Female, 78 years old. Status post thoracentesis. Hydropneumothorax. RADIATION DOSAGE (If Supplied By Facility): CTDIvol = ( 8.16 ) mGy, DLP = ( 287.65 ) mGycm TECHNIQUE: Transaxial imaging was performed without the administration of intravenous contrast material. Coronal and sagittal reformatted images were created. Individualized dose optimization techniques were used for this CT. COMPARISON: No relevant prior comparison study available FINDINGS: LUNGS: There are no pulmonary infiltrates. There is a stable 1.1 cm nodule in the left lower lobe posteriorly. There is total atelectasis of the right lung. There is subsegmental atelectasis at the left lung base. PLEURAL SPACE: There is a large right pleural effusion with multiple air-fluid levels, consistent with a hydropneumothorax. There are small left pleural effusions. There is no left pneumothorax. MEDIASTINUM: The heart is normal in size. There is a small pericardial effusion. There are coronary artery calcifications. There is no thoracic lymphadenopathy. VESSELS: There is no evidence of thoracic aortic aneurysm. UPPER ABDOMEN: There is a stable simple cyst in the liver. BONES: There are no destructive osseous lesions. SOFT TISSUES: There is anasarca in the soft tissues. CT/Chest without Contrast IMPRESSION: Large right hydropneumothorax with total collapse of the right lung. Small left pleural effusion with overlying atelectasis. Stable 1.1 cm nodule in the left lower lobe posteriorly. No left-sided infiltrate. No left pneumothorax. Small pericardial effusion. Coronary artery disease. Anasarca. Electronically Signed: Addi Wiseman MD at 10:46 EDT ,
--- NOTE | 2024-01-05 09:03 | EKG12_ITS ---
Test Reason : Blood Pressure : / mmHG Vent. Rate : 090 BPM Atrial Rate : 090 BPM P-R Int : 124 ms QRS Dur : 088 ms QT Int : 362 ms P-R-T Axes : 074 053 050 degrees QTc Int : 442 ms Sinus rhythm with Premature supraventricular complexes Otherwise normal ECG When compared with ECG of 11-NOV-2019 19:21, Premature supraventricular complexes are now Present Confirmed by FARZANA TOVAR, GARFIELD ([id number]), acquisitions editor ELENA BLANKENSHIP ([id number]) on 01/14/2024 1:14:58 PM Referred By: Confirmed By:JESS YANES MD
--- NOTE | 2024-01-05 09:07 | CT_ITS ---
STUDY: CT BRAIN WITHOUT CONTRAST REASON FOR EXAM: Female, 78 years old. Altered mental status RADIATION DOSAGE (If Supplied By Facility): CTDIvol = ( 49 ) mGy, DLP = ( 796 ) mGycm TECHNIQUE: Transaxial CT imaging of the brain was performed without administration of intravenous contrast material. Individualized dose optimization techniques were used for this CT. COMPARISON: No relevant prior comparison study available FINDINGS: PARENCHYMA: There is no acute bleed or infarct. There are normal white matter tracts. VENTRICLES: There is no hydrocephalus. MASTOID AIR CELLS AND PARANASAL SINUSES: The visualized paranasal sinuses are clear. The mastoid air cells are clear. BONES: There is no skull fracture. SOFT TISSUES: The visualized soft tissues are within normal limits. CT/Brain/Head without Contrast IMPRESSION: No acute intracranial abnormality. Electronically Signed: Addi Wiseman MD at 10:20 EDT ,
[2024-01-05 09:34] LABS: Allen Test Positive; Base Excess -2 mmol/L (-2 to +2); Bicarbonate 25.7 mmol/L (22-26); Blood Gas Specimen Type ART; Mode Not entered; O2 Delivery Device Cannula; PO2 106 mmHG (75-100); SITE R Radial; SO2 97 % (95-99); Total Carbon Dioxide 28 mmol/L; pCO2 59.5 mmHg (35-45); pH 7.24 (7.35-7.45)
--- NOTE | 2024-01-05 12:19 | CASEMGMT ---
Social Work Reason for consult: Hospice Referral Notified by Emy IZQUIERDO regarding need for referral to hospice, family present in room, and in agreement with plan. Met with patient, , son Ted, daughter Becky and spouse, grandchild in room. Becky confirms all are on board with hospice referral and would like referral sent to [facility], for evaluation into the inpatient hospice unit. Emotional support offered. Spoke with Dr. Espinoza who reports has initiated call to hospice. This comic book writer faxed over all needed referral information, including order and advanced directives to confirmed fax of . Called Hospice referral line and updated to impending fax. This comic book writer was able to confirm that referral is already being processed. Reinforced that all family is present in room, and referral for IPU level of care. Hospice health care social worker took this comic book writer's name/number to call back when echocardiograph tech knows time will be able to meet with patient/family. Plan: Hospice referral made, pending evaluation by Hospice team for IPU level of care. -BHAVIN Dozier
--- NOTE | 2024-01-05 15:56 | PCM.PN.HOSP ---
Reason for Visit Reason for Visit: Diagnoses Sepsis, unspecified organism (01/03/24) Malignant neoplasm of unspecified site of left female breast (01/03/24) Malignant neoplasm of unspecified site of unspecified female breast (01/03/24) Thrombocytopenia, unspecified (01/03/24) Pneumonia, unspecified organism (01/03/24) Pleural effusion, not elsewhere classified (01/03/24) Pleural effusion in other conditions classified elsewhere (01/03/24) Acute kidney failure, unspecified (01/03/24) Urinary tract infection, site not specified (01/03/24) Hyperglycemia, unspecified (01/03/24) Bacteremia (01/03/24) Estrogen receptor negative status [ER-] (01/03/24) Subjective Subjective Patient was seen and examined today, she appeared lethargic and weak, chest x-ray this morning showed what appeared to be a pneumothorax, CT of the chest was obtained on the orders of critical care and it showed a hydropneumothorax on the right involving the entire lung. Nursing had a conversation with the patient's daughter who is integral in making decisions regarding her mother's care, after discussing the patient's condition with her father, it was agreed the patient should be comfort care, antibiotic should be stopped, and hospice should be consulted. I contacted hospice and they are going to see the patient this evening. Objective Data Objective Data Vital Signs: Vital Signs Temp Pulse Resp BP Pulse Ox O2 Del Method O2 Flow Rate 98.0 F 89 17 135/63 H 90 Nasal Cannula 2 01/05/24 07:30 01/05/24 12:00 01/05/24 12:00 01/05/24 12:00 01/05/24 12:00 01/05/24 12:00 01/05/24 12:00 Oxygen Flow Rate (L/min) 2 Oxygen Delivery Method Nasal Cannula Weight: 50.8 kg Body Mass Index (BMI) 19.8 Intake & Output: Intake and Output for Last 24 Hours 01/03/24 01/04/24 01/05/24 23:59 23:59 23:59 Intake Total 1255 / 1355 3577.03 / 3584.06 847.00 / 847.00 Output Total 260 / 260 360 / 360 50 / 50 Balance 995 / 1095 3217.03 / 3224.06 797.00 / 797.00 Lab / Micro Data 01/05/24 03:25 01/05/24 03:25 Labs: Laboratory Results - last 24 hr 01/03/24 08:35: Diff Path Review Reviewed 01/03/24 12:45: Diff Path Review Reviewed, Crossmatch See Detail 01/03/24 13:44: Fl Pathologist Comment Reviewed 01/04/24 06:25: Ur Random Sodium 32, Urine Creatinine 58.20 01/04/24 16:00: POC Glucose 176 H 01/04/24 18:07: Hgb 7.7 L, Lactic Acid 2.9 H*, Phosphorus 4.5, Magnesium 1.4 L, Troponin I High Sens 27, TSH 0.90 01/04/24 20:51: POC Glucose 145 H 01/04/24 22:35: Lactic Acid 1.6 01/05/24 03:25: WBC 1.0 L*, RBC 2.21 L, Hgb 6.8 L, Hct 22.3 L, MCV 100.9 H, MCH 30.8, MCHC 30.5 L, RDW Std Deviation 60.7 H, RDW Coeff of Shameka 16.3 H, Plt Count 25 L*, MPV TNP, Differential Comment SCANNED, Diff Path Review May foll, Sodium 136, Potassium 4.6, Chloride 104, Carbon Dioxide 24.0, Anion Gap 8, BUN 39 H, Creatinine 2.43 H, Estim Creat Clear Calc 15.61, Est GFR (MDRD) Af Amer 25 L, Est GFR (MDRD) Non-Af 21 L, BUN/Creatinine Ratio 16.0, Glucose 171 H, Calcium 8.1 L, Vancomycin Trough 13.5 01/05/24 06:27: POC Glucose 174 H Micro: Microbiology 01/04/24 12:30 Blood Culture (Wb) - Port Blood Culture - Preliminary 01/03/24 13:45 Fluid - Thoracentesis Fluid Gram Stain - Final 01/03/24 13:45 Fluid - Thoracentesis Fluid Body Fluid Culture - Preliminary No growth-Final to follow 01/03/24 13:45 Fluid - Thoracentesis Fluid Anaerobic Culture - Preliminary No growth in 48 hours. 01/03/24 03:15 Blood Culture (Wb) - Port Blood Culture - Final Escherichia coli 01/03/24 01:50 Urine, Clean Catch Urine Culture - Final Escherichia coli 01/04/24 12:15 Nasal Secretion MRSA (PCR) - Final ABG Data ABG results: ABG 01/05/24 09:31 Specimen Type ART Sample Site R Radial pH 7.24 L Bicarbonate Actual 25.7 Total CO2 28 Base Excess -2 O2 Saturation 97 O2 % 2.0 ABG pCO2 59.5 H ABG pO2 106 H Mohit Test Positive O2 Delivery Device Cannula Vent Mode Not entered Radiography Diagnostic Testing: Radiology Impression Echocardiogram 01/04/24 17:56 Interpretation Summary The estimated ejection fraction is 55-60 %. Normal LV systolic function Mild MR No previous study to compare Ordering Physician: Mitchel Landaverde Referring Physician: Edgar Menezes Performed By: Christina Hall, BARRETT, RVT Chest X-Ray 01/05/24 07:55 IMPRESSION: Large right pleural effusion with overlying atelectasis. This is worse when compared to prior exam. Loculated air-fluid levels in the right upper hemithorax which may be due to a hydropneumothorax. Further evaluation with CT is recommended. Electronically Signed: Addi Wiseman MD at 9:22 EDT , ADDENDUM: 01/05/24 0945 IMPRESSION: Large right pleural effusion with overlying atelectasis. This is worse when compared to prior exam. Loculated air-fluid levels in the right upper hemithorax which may be due to a hydropneumothorax. Further evaluation with CT is recommended. N.B. : Margo Chavarria RN, confirmed on 01/05/2024 09:38:32 (ET) that the healthcare facility has received the radiology report. Electronically Signed: Addi Wiseman MD at 9:22 EDT , Chest CT 01/05/24 08:54 IMPRESSION: Large right hydropneumothorax with total collapse of the right lung. Small left pleural effusion with overlying atelectasis. Stable 1.1 cm nodule in the left lower lobe posteriorly. No left-sided infiltrate. No left pneumothorax. Small pericardial effusion. Coronary artery disease. Anasarca. Electronically Signed: Addi Wiseman MD at 10:46 EDT , Brain CT 01/05/24 09:07 IMPRESSION: No acute intracranial abnormality. Electronically Signed: Addi Wiseman MD at 10:20 EDT , Physical Exam Const Constitutional Narrative: Patient appears unwell, she is frail and lethargic General Appearance: well developed HEENT normocephalic and head/scalp atraumatic Eyes EOMs intact bilaterally and conjunctivae normal Neck no JVD and thyroid normal General: trachea midline Resp normal respiratory effort, no retractions and no use of accessory muscles Resp Narrative: Decreased breath sounds are noted over the right lung field, patient does not appear in any respiratory distress Auscultation: Negative for rales, rhonchi or wheezes Cardio regular rate, regular rhythm, S1 normal heart sound, S2 normal heart sound, no murmurs, no rub and no gallops GI normal to inspection, nondistended, normoactive bowel sounds, soft to palpation, non-tender and non-distended Extremity no clubbing, cyanosis or edema Skin no rashes or lesions noted General Skin Exam: no breakdown Neuro CN's II-XII intact bilaterally Neuro Narrative: Patient is lethargic, she does awaken to verbal and tactile stimulation Psych Psych Narrative: Patient is lethargic Assessment & Plan Assessment/Plan (1) Septic shock: PLAN: Plan 1. Septic shock secondary to acute cystitis with E. coli and right-sided pneumonia-organism unknown-again patient was made comfort care today and her antibiotics were discontinued at the family's direction, at this time, patient does not appear to be in respiratory distress and appears to be comfortable on 2 L of oxygen. Hospitalist will see the patient this evening, hopefully they will be able to take the patient to the inpatient hospice unit. #2 right-sided pneumonia-organism unknown #3 right hydropneumothorax-this could be related to her recent thoracentesis, the exact etiology is unknown #4 pancytopenia-I believe this is probably from sepsis-again the patient is comfort care at this time #5 acute urinary tract infection/cystitis with E. coli-again the patient is now comfort care #6 acute renal failure-patient's urine output has dropped, her creatinine is elevated as compared to her creatinine yesterday, again the patient is a comfort care #7 stage III breast cancer Malnutrition was ruled out per nutritional services Total clinical time spent by myself addressing the patient's medical issues, reviewing her data, and collaborating with patient's care team: 50 minutes Charges/Coding Visit Charges Inpatient E&M: [id number] [facility] L[facility]
[2024-01-05] MEDS: 0.9 % NaCl (Sterile) Posiflush 10 mL IV (16:17)
[2024-01-05] MEDS: LORazepam 2 MG/ML Syringe 1 MG IV (16:36)
--- NOTE | 2024-01-05 17:01 | PCM.DEATH ---
Preliminary Cause of Preliminary Cause of Preliminary Cause of : Septic shock secondary to acute cystitis and pneumonia Date of Admission: 01/03/24 Date of : 01/05/24 Principle Diagnosis 1. Septic shock secondary to E. coli bacteremia from acute cystitis and right-sided community-acquired pneumonia #2 right-sided community-acquired pneumonia-organism unknown #3 right parapneumonic effusion #4 pancytopenia secondary to acute sepsis #5 acute renal failure #6 stage III breast cancer #7 anemia acute on chronic-etiology unclear, requiring blood transfusion #8 right hydropneumothorax-associated with right thoracentesis Problem List: Active and Suspected Problems (Updated 01/05/24 @ 16:[address] Luis Alberto Espinoza, DO) Septic shock (Acute) Sepsis without septic shock (Acute) Thrombocytopenia (Acute) Etiology is infection related since PLT on 12/21/2023 was 155K Parapneumonic effusion (Acute) Bacteremia due to Gram-negative bacteria (Acute) Breast cancer (Acute) Non-insulin dependent diabetes mellitus (Acute) Pleural effusion on right (Acute) Acute hyperglycemia (Acute) UTI (urinary tract infection) (Acute) Hospital Course Time of : 4:58 PM, 01/05/24 This 78-year-old white female was seen in the emergency room at [facility] with complaints of a sudden onset of upper back pain, workup in the emergency room included labs which showed the patient to have thrombocytopenia, she was also found to be neutropenic and anemic. Patient's hemoglobin was 8.1. CTAof the chest showed no evidence of pulmonary embolism but showed a large right pleural effusion with a possible underlying pneumonia in the right lung. UA indicated a urinary tract infection, creatinine was elevated indicating SKYLA. .Patient had been diagnosed with breast cancer in April 2023, she was started on chemotherapy but developed significant side effects and it was discontinued. She underwent a mastectomy in October 2023 and was placed on Keytruda, the Keytruda however caused severe diarrhea and she had to be hospitalized due to dehydration and SKYLA. Patient was given IV antibiotics, she was admitted to PCU and seen in consultation by critical care, follow-up hemoglobin was 7.3 patient's platelet count was low at 29,000, and patient's white blood cell count was normal. Patient underwent a thoracentesis with removal of approximately 260 cc of fluid. Patient was seen in consultation by nephrology due to elevated creatinine, she was also seen by heme-onc due to her pancytopenia and it was felt that it was due to sepsis. Patient developed a significant neutropenia and her platelet count remained low. Patient's blood cultures were positive for E. coli as were her urine culture. She was ultimately transferred to ICU due to hypotension, she was placed on pressor agents, she was given a blood transfusion and on the morning of 01/05/2024, chest x-ray showed a likely right-sided hydropneumothorax, chest CT showed the entire right lung to be involved, discussions were carried out with the patient's family concerning how aggressive to get with her treatment. Family ultimately decided that they would like her to be comfort care and antibiotics to be stopped and hospice to be consulted. Hospice was not able to see the patient initially and plans were for the patient to be seen later on that evening. On 01/05/2024 at 4:58 PM, patient was noted to be pulseless, apneic, and was pronounced at that time. Family was present in the room. Cause of was felt to be septic shock from a UTI and right-sided pneumonia. Visit Charges Inpatient E&M: 32492 Disch Hosp >30min
[2024-01-07 13:58] LABS: Pathologist Review Reviewed
[2024-01-07 14:02] LABS: Pathologist Review Reviewed
== END 2024-01-05 16:58 | DRG 871 ==
LOC: ED 01-03 03:28 → PCU 01-03 04:02 → ICU 01-04 16:30
PROVIDERS: Hospitalist; Internal Medicine Critical Care Medicine; Internal Medicine Pulmonary Disease; Admitting Provider Family Medicine; Emergency Provider Emergency Medicine; PCP Family Medicine; Visit Provider Internal Medicine
DX: A41.51 Sepsis due to Escherichia coli [E. coli] (principal); N17.0 Acute kidney failure with tubular necrosis; R65.21 Severe sepsis with septic shock; J18.9 Pneumonia, unspecified organism; D61.818 Other pancytopenia; C77.9 Secondary and unspecified malignant neoplasm of lymph node, unspecified; J91.8 Pleural effusion in other conditions classified elsewhere; J95.811 Postprocedural pneumothorax; N30.00 Acute cystitis without hematuria; E11.65 Type 2 diabetes mellitus with hyperglycemia; C50.912 Malignant neoplasm of unspecified site of left female breast; E11.40 Type 2 diabetes mellitus with diabetic neuropathy, unspecified; I10 Essential (primary) hypertension; K21.9 Gastro-esophageal reflux disease without esophagitis; E78.00 Pure hypercholesterolemia, unspecified; Z17.1 Estrogen receptor negative status [ER-]; Z66 Do not resuscitate; Z79.52 Long term (current) use of systemic steroids; Z79.899 Other long term (current) drug therapy
CPT/HCPCS: 32555; 36591; 36600; 70450; 71045; 71046; 71250; 71275; 76770; 80048; 80053; 80202; 81001; 82570; 82803; 82945; 82962; 83605; 83615; 83735; 84100; 84145; 84156; 84157; 84300; 84443; 84484; 85018; 85025; 85027; 85610; 85730; 86850; 86900; 86901; 86920; 87040; 87070; 87075; 87077; 87086; 87088; 87186; 87205; 87641; 88108; 88305; 88313; 89050; 93005; 93306; 99285; J7030; J7050; J7120; P9047; Q9967; A4216; J2405